=== PATIENT | female | born 1930 | race African-American/Black ===

== ENCOUNTER 2018-03-03 07:23 | Inpatient (IN) ==
[2018-03-03] MEDS ORDERED: Piperacillin/Tazobactam 3.375 GM in 0.9 % Sodium Chloride Mini Bag 100 ML IVPB ONE (07:34)
--- NOTE | 2018-03-03 07:34 | Emergency Department Note ---
Disposition Clinical Impression: Confusion, Elevated troponin, Lactic acidosis Leukocytosis Qualifiers: Leukocytosis type: unspecified Qualified Code(s): D72.829 - Elevated white blood cell count, unspecified UTI (urinary tract infection) Qualifiers: Urinary tract infection type: site unspecified Hematuria presence: with hematuria Qualified Code(s): N39.0 - Urinary tract infection, site not specified ; R31.9 - Hematuria, unspecified Sepsis Qualifiers: Sepsis type: sepsis due to unspecified organism Qualified Code(s): A41.9 - Sepsis, unspecified organism Disposition: Admitted As Inpatient Condition: Fair Time of Disposition: 12:04 General Adult HPI - General Stated complaint: low o2 Time Seen by Provider: 03/03/18 07:30 Nursing Notes Reviewed: Yes Vital Signs Reviewed: Yes - History of Present Illness HPI Narrative: 79-year-old female presents by EMS from [facility] for evaluation of hypoxia as well as suspected aspiration from her morning meds through her G- tube. Patient has severe Alzheimer's and is, at her baseline, minimally responsive to verbal command. Altered mentation described by her daughter as more somnolent than baseline. She does not use supplemental oxygen at baseline. Review of systems not obtainable secondary to patient's advanced dementia. Code status: DNR-CC. Documentation on file. - Related Data Home Medications Medication Instructions Recorded Confirmed Acetaminophen [Non-Aspirin] 650 mg PO Q6H PRN 03/03/18 03/03/18 Acetaminophen [Tylenol 650mg SUPP] 650 mg RC Q6H PRN 03/03/18 03/03/18 Albuterol Neb [Proventil Neb] 2.5 mg IH Q2H PRN 03/03/18 03/03/18 Aspirin Enteric Coated [Aspirin EC] 81 mg PO DAILY 03/03/18 03/03/18 Atropine 1% Opth Drops 1 drop SL Q4H 03/03/18 03/03/18 Donepezil HCl [Aricept] 10 mg PO DAILY 03/03/18 03/03/18 Ferrous Sulfate [Iron] 325 mg PO DAILY 03/03/18 03/03/18 Loratadine [Allergy Relief] 10 mg PO DAILY PRN 03/03/18 03/03/18 MORPHINE SUL Oral CONC [Roxanol 0.25 ml SL Q4H PRN 03/03/18 03/03/18 Oral Conc] Sennosides [Senna] 8.6 mg PO DAILY 03/03/18 03/03/18 Sucralfate [Carafate] 1 gm PO BID 03/03/18 03/03/18 Allergies Allergy/AdvReac Type Severity Reaction Status Date / Time No Known Allergies Allergy Verified 03/03/18 07:40 Limitations: ROS unobtainable due to patients medical condition Past Medical History - Past Medical History Medical history: Reports: non-contributory, dementia Surgical history: Reports: no surgical history Psychiatric history: Reports: anxiety, depression 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 Head: atraumatic, normocephalic Eye: normal appearance, PERRL, no scleral icterus, no conjunctival injection ENT: mucous membranes dry, normal external ear exam Neck: normal inspection, trachea midline, full ROM Chest: normal inspection, symmetric chest rise Respiratory: Poor respiratory effort. Bilateral breath sounds are diminished with coarse crackles. No wheeze or rhonchi. Cardiovascular: Regular rate and rhythm. No clicks, rubs, gallops, or murmors. Normal heart sounds. Abdomen: Bowel sounds present normoactive. Abdomen is soft, nondistended. Mild pain response to abdominal palpation. No guarding or rebound. No organomegaly noted. Musculoskeletal: Spontaneously moving all extremities. Skin: warm, dry, intact. Neuro: when awake, GCS 10 (E4, V1, M5) Psych: Patient's affect is appropriate for situation. Course Course Narrative: On bedside monitor the patient arrival, she is tachycardic, tachypneic though does not appear uncomfortable. She is requiring 2 L supple oxygen via nasal cannula. Lung sounds are coarse. Concern for sepsis from a pulmonary source. We will begin empiric antibiotics against healthcare associated pneumonia. Will provide IV fluids. Initially provided a 500mL IVF bolus, she was re- examined with no evidence of pulmonary edema. An additional 1L NS bolus provided. Patient's HR improved slightly. Her BP remained systolic greater than 120. Patient has profound lukocytosis to 40k. Lactic acidemia with lactate 5.0. Slight elevation in troponin of 0.05 with normal renal function; suspect demand ischemia. Patient given empiric vancomycin and zosyn. Urinalysis concerning for UTI. Thus sepsis from urinary source as well as suspected pulmonary source from suspected aspiration and diffuse crackles on exam. I discussed the above with the patient's daughter. She notes the patient has been in this scenario previously. Daughter is a nurse and readily understands the severity of the situation. Daughter prefers no invasive procedures, otherwise medically manage as much as possible. Daughter is open to palliative care. I discussed the above with the admitting hospitalist, Dr. Benedict who agrees to accept the patient for continued evaluation and management. EKG dated 03 March at 08:09 interpreted as sinus tachycardia with a rate of 140. GA 100 and short. Eloisa 2, QTC 369. Normal axis. ST depression in leads V3, V4, V5, V6 which are present on comparative EKG dated 07/25/2015. Chest X-Ray 03/03/18 07:37 IMPRESSION: No evidence for acute cardiopulmonary process. D/ / 03/03/2018 08:07:52 Edilberto Garcia MD / [facility] Interpreting Provider: Edilberto Garcia MD Abdomen/Pelvis CT 03/03/18 07:53 IMPRESSION: 1. Bilateral lower lobe bronchial wall thickening and mucous impaction compatible with bronchitis/atypical infection. 2. Diffuse bladder wall thickening which may in part be due to underdistention, however, superimposed cystitis is also possible. 3. Masses stool ball within the rectum. 4. Bilateral nephrolithiasis. 5. Cholelithiasis. D/ / 03/03/2018 10:02:05 Chiki Caballero MD / [facility] Interpreting Provider: Chiki Caballero MD Vital Signs Temperature 97.6 F 03/03/18 07:28 Pulse Rate 128 03/03/18 07:28 Respiratory Rate 26 03/03/18 07:28 Blood Pressure 160/85 03/03/18 07:28 O2 Sat by Pulse Oximetry 95 03/03/18 07:28 Temperature 99.4 F 03/03/18 15:42 Pulse Rate 120 03/03/18 13:51 Respiratory Rate 26 03/03/18 13:51 Blood Pressure 122/71 03/03/18 13:51 O2 Sat by Pulse Oximetry 97 03/03/18 11:37 Oxygen Delivery Oxygen Delivery Oximizer Medical Decision Making - Lab Data Result diagrams: 03/03/18 08:04 03/03/18 08:04 Lab Results 03/03/18 03/03/18 03/03/18 Range/Units 08:04 08:04 08:04 WBC 42.4 H* (4.3-11.1) K/mcL RBC 5.29 H (3.82-4.97) M/mcL Hgb 12.1 (11.5-15.4) g/dL Hct 39.0 (35.3-44.9) % MCV 73.7 L (83.0-100.0) fL MCH 22.9 L (28.0-33.3) pg MCHC 31.0 L (31.6-35.5) g/dL RDW 16.2 H (11.5-14.5) % Plt Count 361 (140-400) K/mcL MPV 10.0 (9.4-12.4) fL Immature Gran % Test Not Performed Seg Neutrophils % 89.0 % Band Neutrophils % 9.0 H (0-4) % Lymphocytes % 2.0 % Monocytes % Test Not Performed Eosinophils % Test Not Performed Basophils % Test Not Performed Neutrophils # 41.6 H (1.6-8.9) K/mcL Lymphocytes # 0.9 (0.6-4.6) K/mcL Monocytes # Test Not Performed Eosinophils # Test Not Performed Basophils # Test Not Performed Toxic Granulation Present A (Not Present) Toxic Vacuolation Present A (Not Present) Platelet Estimate Normal (Normal) PT 14.8 H (9.4-12.1) Seconds INR 1.3 APTT 33.8 (26.0-36.0) Seconds Sodium 146 H (136-145) mEq/L Potassium 4.1 (3.5-5.1) mEq/L Chloride 111 H (98-107) mEq/L Carbon Dioxide 23 (23-29) mEq/L BUN 15 (8-23) mg/dL Creatinine 0.89 (0.60-1.20) mg/dL Est GFR ( Amer) > 60 (> 60) Est GFR (Non-Af Amer) 60 (> 60) BUN/Creatinine Ratio 17 (6-26) Glucose 151 H (70-105) mg/dL Calculated Osmolality 306 H (280-300) Lactic Acid (0.5-2.2) mmol/L Calcium 10.0 (8.6-10.3) mg/dL Phosphorus 2.2 L (2.7-4.5) mg/dL Magnesium 2.0 (1.6-2.6) mg/dL Total Bilirubin 0.5 (0.3-1.0) mg/dL Direct Bilirubin 0.2 (0.0-0.2) mg/dL Indirect Bilirubin 0.3 (0.0-1.2) mg/dL AST 16 (13-39) Units/L ALT 9 (7-52) Units/L Alkaline Phosphatase 67 (34-104) Units/L Troponin I 0.05 H* (< 0.04) ng/mL Serum Total Protein 7.3 (6.4-8.9) g/dL Albumin 4.0 (3.5-5.7) g/dL Globulin 3.3 (2.4-3.5) g/dL Albumin/Globulin Ratio 1.2 (1.1-2.2) Urine Color (Yellow) Urine Clarity (Clear) Urine pH (5.0-8.0) pH Units Ur Specific [place] (1.010-1.025) Urine Protein (Neg-Trace) mg/dL Urine Glucose (UA) (Normal) mg/dL Urine Ketones (Negative) mg/dL Urine Blood (Negative) Urine Nitrite (Negative) Urine Bilirubin (Negative) Urine Urobilinogen (Normal) mg/dL Ur Leukocyte Esterase (Negative) Urine Microscopic RBC (0-3) per hpf Urine Microscopic WBC (0-3) per hpf Ur Squamous Epith Cells (None-Few) per lpf Urine Bacteria (None-Few) per hpf Hyaline Casts (None-Few) per lpf Ur Culture Indicated? (NO) 03/03/18 03/03/18 03/03/18 Range/Units 08:04 10:00 11:30 WBC (4.3-11.1) K/mcL RBC (3.82-4.97) M/mcL Hgb (11.5-15.4) g/dL Hct (35.3-44.9) % MCV (83.0-100.0) fL MCH (28.0-33.3) pg MCHC (31.6-35.5) g/dL RDW (11.5-14.5) % Plt Count (140-400) K/mcL MPV (9.4-12.4) fL Immature Gran % Seg Neutrophils % % Band Neutrophils % (0-4) % Lymphocytes % % Monocytes % Eosinophils % Basophils % Neutrophils # (1.6-8.9) K/mcL Lymphocytes # (0.6-4.6) K/mcL Monocytes # Eosinophils # Basophils # Toxic Granulation (Not Present) Toxic Vacuolation (Not Present) Platelet Estimate (Normal) PT (9.4-12.1) Seconds INR APTT (26.0-36.0) Seconds Sodium (136-145) mEq/L Potassium (3.5-5.1) mEq/L Chloride (98-107) mEq/L Carbon Dioxide (23-29) mEq/L BUN (8-23) mg/dL Creatinine (0.60-1.20) mg/dL Est GFR ( Amer) (> 60) Est GFR (Non-Af Amer) (> 60) BUN/Creatinine Ratio (6-26) Glucose (70-105) mg/dL Calculated Osmolality (280-300) Lactic Acid 5.0 H* 3.5 H (0.5-2.2) mmol/L Calcium (8.6-10.3) mg/dL Phosphorus (2.7-4.5) mg/dL Magnesium (1.6-2.6) mg/dL Total Bilirubin (0.3-1.0) mg/dL Direct Bilirubin (0.0-0.2) mg/dL Indirect Bilirubin (0.0-1.2) mg/dL AST (13-39) Units/L ALT (7-52) Units/L Alkaline Phosphatase (34-104) Units/L Troponin I (< 0.04) ng/mL Serum Total Protein (6.4-8.9) g/dL Albumin (3.5-5.7) g/dL Globulin (2.4-3.5) g/dL Albumin/Globulin Ratio (1.1-2.2) Urine Color Yellow (Yellow) Urine Clarity Turbid A (Clear) Urine pH 5.5 (5.0-8.0) pH Units Ur Specific [place] 1.015 (1.010-1.025) Urine Protein 100 H (Neg-Trace) mg/dL Urine Glucose (UA) Normal (Normal) mg/dL Urine Ketones Negative (Negative) mg/dL Urine Blood Large H (Negative) Urine Nitrite Positive A (Negative) Urine Bilirubin Negative (Negative) Urine Urobilinogen Normal (Normal) mg/dL Ur Leukocyte Esterase Large H (Negative) Urine Microscopic RBC TNTC H (0-3) per hpf Urine Microscopic WBC TNTC H (0-3) per hpf Ur Squamous Epith Cells Many H (None-Few) per lpf Urine Bacteria Moderate H (None-Few) per hpf Hyaline Casts None Seen (None-Few) per lpf Ur Culture Indicated? NO. A (NO)
--- NOTE | 2018-03-03 08:02 | Emergency Department Note ---
Disposition Clinical Impression: Confusion, Elevated troponin, Lactic acidosis, Sepsis Leukocytosis Qualifiers: Leukocytosis type: unspecified Qualified Code(s): D72.829 - Elevated white blood cell count, unspecified UTI (urinary tract infection) Qualifiers: Urinary tract infection type: site unspecified Hematuria presence: with hematuria Qualified Code(s): N39.0 - Urinary tract infection, site not specified Disposition: Admitted As Inpatient Condition: Fair General Adult HPI - General Chief complaint: ED Shortness of Breath/Dyspnea Stated complaint: low o2 Time Seen by Provider: 03/03/18 07:30 Source: EMS Limitations: altered mental status, other - History of Present Illness Pain Scale: 0 - Related Data Home Medications Medication Instructions Recorded Confirmed Acetaminophen [Non-Aspirin] 650 mg PO Q6H PRN 03/03/18 03/03/18 Acetaminophen [Tylenol 650mg SUPP] 650 mg RC Q6H PRN 03/03/18 03/03/18 Albuterol Neb [Proventil Neb] 2.5 mg IH Q2H PRN 03/03/18 03/03/18 Aspirin Enteric Coated [Aspirin EC] 81 mg PO DAILY 03/03/18 03/03/18 Atropine 1% Opth Drops 1 drop SL Q4H 03/03/18 03/03/18 Donepezil HCl [Aricept] 10 mg PO DAILY 03/03/18 03/03/18 Ferrous Sulfate [Iron] 325 mg PO DAILY 03/03/18 03/03/18 Loratadine [Allergy Relief] 10 mg PO DAILY PRN 03/03/18 03/03/18 MORPHINE SUL Oral CONC [Roxanol 0.25 ml SL Q4H PRN 03/03/18 03/03/18 Oral Conc] Sennosides [Senna] 8.6 mg PO DAILY 03/03/18 03/03/18 Sucralfate [Carafate] 1 gm PO BID 03/03/18 03/03/18 Allergies Allergy/AdvReac Type Severity Reaction Status Date / Time No Known Allergies Allergy Verified 03/03/18 07:40 Past Medical History - Past Medical History Medical history: Reports: non-contributory, dementia Surgical history: Reports: no surgical history Psychiatric history: Reports: anxiety, depression 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 - Social History Smoking Status: Unknown if ever smoked Smokeless Tobacco Status: No Alcohol use: Reports: none Drug use: Reports: none Physical Exam - General Limitations: altered mental status, other Course Vital Signs Temperature 97.6 F 03/03/18 07:28 Pulse Rate 128 03/03/18 07:28 Respiratory Rate 26 03/03/18 07:28 Blood Pressure 160/85 03/03/18 07:28 O2 Sat by Pulse Oximetry 95 03/03/18 07:28 Temperature 99.4 F 03/03/18 15:42 Pulse Rate 120 03/03/18 13:51 Respiratory Rate 26 03/03/18 13:51 Blood Pressure 122/71 03/03/18 13:51 O2 Sat by Pulse Oximetry 97 03/03/18 11:37 Oxygen Delivery Oxygen Delivery Oximizer Medical Decision Making - Lab Data Result diagrams: 03/03/18 08:04 03/03/18 08:04 Lab Results 03/03/18 03/03/18 03/03/18 Range/Units 08:04 08:04 08:04 WBC 42.4 H* (4.3-11.1) K/mcL RBC 5.29 H (3.82-4.97) M/mcL Hgb 12.1 (11.5-15.4) g/dL Hct 39.0 (35.3-44.9) % MCV 73.7 L (83.0-100.0) fL MCH 22.9 L (28.0-33.3) pg MCHC 31.0 L (31.6-35.5) g/dL RDW 16.2 H (11.5-14.5) % Plt Count 361 (140-400) K/mcL MPV 10.0 (9.4-12.4) fL Immature Gran % Test Not Performed Seg Neutrophils % 89.0 % Band Neutrophils % 9.0 H (0-4) % Lymphocytes % 2.0 % Monocytes % Test Not Performed Eosinophils % Test Not Performed Basophils % Test Not Performed Neutrophils # 41.6 H (1.6-8.9) K/mcL Lymphocytes # 0.9 (0.6-4.6) K/mcL Monocytes # Test Not Performed Eosinophils # Test Not Performed Basophils # Test Not Performed Toxic Granulation Present A (Not Present) Toxic Vacuolation Present A (Not Present) Platelet Estimate Normal (Normal) PT 14.8 H (9.4-12.1) Seconds INR 1.3 APTT 33.8 (26.0-36.0) Seconds Sodium 146 H (136-145) mEq/L Potassium 4.1 (3.5-5.1) mEq/L Chloride 111 H (98-107) mEq/L Carbon Dioxide 23 (23-29) mEq/L BUN 15 (8-23) mg/dL Creatinine 0.89 (0.60-1.20) mg/dL Est GFR ( Amer) > 60 (> 60) Est GFR (Non-Af Amer) 60 (> 60) BUN/Creatinine Ratio 17 (6-26) Glucose 151 H (70-105) mg/dL Calculated Osmolality 306 H (280-300) Lactic Acid (0.5-2.2) mmol/L Calcium 10.0 (8.6-10.3) mg/dL Phosphorus 2.2 L (2.7-4.5) mg/dL Magnesium 2.0 (1.6-2.6) mg/dL Total Bilirubin 0.5 (0.3-1.0) mg/dL Direct Bilirubin 0.2 (0.0-0.2) mg/dL Indirect Bilirubin 0.3 (0.0-1.2) mg/dL AST 16 (13-39) Units/L ALT 9 (7-52) Units/L Alkaline Phosphatase 67 (34-104) Units/L Troponin I 0.05 H* (< 0.04) ng/mL Serum Total Protein 7.3 (6.4-8.9) g/dL Albumin 4.0 (3.5-5.7) g/dL Globulin 3.3 (2.4-3.5) g/dL Albumin/Globulin Ratio 1.2 (1.1-2.2) Urine Color (Yellow) Urine Clarity (Clear) Urine pH (5.0-8.0) pH Units Ur Specific [place] (1.010-1.025) Urine Protein (Neg-Trace) mg/dL Urine Glucose (UA) (Normal) mg/dL Urine Ketones (Negative) mg/dL Urine Blood (Negative) Urine Nitrite (Negative) Urine Bilirubin (Negative) Urine Urobilinogen (Normal) mg/dL Ur Leukocyte Esterase (Negative) Urine Microscopic RBC (0-3) per hpf Urine Microscopic WBC (0-3) per hpf Ur Squamous Epith Cells (None-Few) per lpf Urine Bacteria (None-Few) per hpf Hyaline Casts (None-Few) per lpf Ur Culture Indicated? (NO) 03/03/18 03/03/18 03/03/18 Range/Units 08:04 10:00 11:30 WBC (4.3-11.1) K/mcL RBC (3.82-4.97) M/mcL Hgb (11.5-15.4) g/dL Hct (35.3-44.9) % MCV (83.0-100.0) fL MCH (28.0-33.3) pg MCHC (31.6-35.5) g/dL RDW (11.5-14.5) % Plt Count (140-400) K/mcL MPV (9.4-12.4) fL Immature Gran % Seg Neutrophils % % Band Neutrophils % (0-4) % Lymphocytes % % Monocytes % Eosinophils % Basophils % Neutrophils # (1.6-8.9) K/mcL Lymphocytes # (0.6-4.6) K/mcL Monocytes # Eosinophils # Basophils # Toxic Granulation (Not Present) Toxic Vacuolation (Not Present) Platelet Estimate (Normal) PT (9.4-12.1) Seconds INR APTT (26.0-36.0) Seconds Sodium (136-145) mEq/L Potassium (3.5-5.1) mEq/L Chloride (98-107) mEq/L Carbon Dioxide (23-29) mEq/L BUN (8-23) mg/dL Creatinine (0.60-1.20) mg/dL Est GFR ( Amer) (> 60) Est GFR (Non-Af Amer) (> 60) BUN/Creatinine Ratio (6-26) Glucose (70-105) mg/dL Calculated Osmolality (280-300) Lactic Acid 5.0 H* 3.5 H (0.5-2.2) mmol/L Calcium (8.6-10.3) mg/dL Phosphorus (2.7-4.5) mg/dL Magnesium (1.6-2.6) mg/dL Total Bilirubin (0.3-1.0) mg/dL Direct Bilirubin (0.0-0.2) mg/dL Indirect Bilirubin (0.0-1.2) mg/dL AST (13-39) Units/L ALT (7-52) Units/L Alkaline Phosphatase (34-104) Units/L Troponin I (< 0.04) ng/mL Serum Total Protein (6.4-8.9) g/dL Albumin (3.5-5.7) g/dL Globulin (2.4-3.5) g/dL Albumin/Globulin Ratio (1.1-2.2) Urine Color Yellow (Yellow) Urine Clarity Turbid A (Clear) Urine pH 5.5 (5.0-8.0) pH Units Ur Specific [place] 1.015 (1.010-1.025) Urine Protein 100 H (Neg-Trace) mg/dL Urine Glucose (UA) Normal (Normal) mg/dL Urine Ketones Negative (Negative) mg/dL Urine Blood Large H (Negative) Urine Nitrite Positive A (Negative) Urine Bilirubin Negative (Negative) Urine Urobilinogen Normal (Normal) mg/dL Ur Leukocyte Esterase Large H (Negative) Urine Microscopic RBC TNTC H (0-3) per hpf Urine Microscopic WBC TNTC H (0-3) per hpf Ur Squamous Epith Cells Many H (None-Few) per lpf Urine Bacteria Moderate H (None-Few) per hpf Hyaline Casts None Seen (None-Few) per lpf Ur Culture Indicated? NO. A (NO) Attestation Statement - Attestation Attestation: I examined this patient and my medical decision-making was reviewed with the FRONT END SPECIALIST/PA/Advanced Practice Nurse/Resident Physician. I agree with the documented findings, disposition and treatment plan as described except to the extent set forth below. Patient presents per EMS with hypoxemia and a saturation in the 70s. She did have emesis while she is here and we did suction her and her G-tube will be hooked up to suction. Likely aspiration pneumonitis, her chest x-ray is clear without evidence of infiltrate. Patient is DNRCC but no family is here. Diagnostic tests will be done and these results are pending. Oxygen saturation in the 90s on nasal cannula oxygen. 0801 I did review the EKG showing sinus tachycardia with a rate of 140 bpm without ischemic change, I did review her labs including elevated lactate and white blood cell count. Patient is already being treated for sepsis, blood cultures, will receive IV fluids. [id number]
[2018-03-03 08:18] LABS: Hemoglobin 12.1 g/dL (11.5-15.4); Mean Corpuscular Hemoglobin 22.9 pg (28.0-33.3); Mean Corpuscular Volume 73.7 fL (83.0-100.0); Platelet Count 361 K/mcL (140-400); Red Blood Count 5.29 M/mcL (3.82-4.97); Red Cell Distribution Width 16.2 % (11.5-14.5)
[2018-03-03 08:26] LABS: INR 1.3; Prothrombin Time 14.8 Seconds (9.4-12.1)
[2018-03-03 08:29] LABS: Activated Partial Thrombo Time 33.8 Seconds (26.0-36.0)
[2018-03-03 08:39] LABS: Alanine Aminotransferase 9 Units/L (7-52); Albumin/Globulin Ratio 1.2 (1.1-2.2); Alkaline Phosphatase 67 Units/L (34-104); Aspartate Amino Transferase 16 Units/L (13-39); BUN/Creatinine Ratio 17 (6-26); Bilirubin,Direct 0.2 mg/dL (0.0-0.2); Bilirubin,Indirect 0.3 mg/dL (0.0-1.2); Bilirubin,Total 0.5 mg/dL (0.3-1.0); Blood Urea Nitrogen 15 mg/dL (8-23); Carbon Dioxide 23 mEq/L (23-29); Chloride 111 mEq/L (98-107); Globulin 3.3 g/dL (2.4-3.5); Glucose 151 mg/dL (70-105); Osmolality,Calculated 306 (280-300); Phosphorous 2.2 mg/dL (2.7-4.5); Potassium 4.1 mEq/L (3.5-5.1); Sodium 146 mEq/L (136-145); Total Protein 7.3 g/dL (6.4-8.9); eGFR For African Americans > 60 (> 60); eGFR For Non-African Americans 60 (> 60)
[2018-03-03 08:42] LABS: Troponin I 0.05 ng/mL (< 0.04)
[2018-03-03] MEDS: 0.9 % Sodium Chloride 1,000 ML IVC SCH ×4 (08:48→13:40)
[2018-03-03] MEDS ORDERED: 0.9 % Sodium Chloride 500 ML IVC ONE ×2 (08:58→15:17)
[2018-03-03 09:22] LABS: Lymphocytes # 0.9 K/mcL (0.6-4.6); Neutrophils # 41.6 K/mcL (1.6-8.9); Platelet Estimate Normal (Normal); Toxic Granulation Present (Not Present); Toxic Vacuolation Present (Not Present)
[2018-03-03 10:10] LABS: Bilirubin,Urine Negative (Negative); Blood,Urine Large (Negative); Clarity,Urine Turbid (Clear); Color,Urine Yellow (Yellow); Glucose,Urine (UA) Normal (Normal); Ketones,Urine Negative (Negative); Leukocyte Esterase,Urine Large (Negative); Nitrite,Urine Positive (Negative); PH,Urine 5.5 pH Units (5.0-8.0); Protein,Urine 100 mg/dL (Neg-Trace); Specific Gravity,Urine 1.015 (1.010-1.025); Urobilinogen,Urine Normal (Normal)
[2018-03-03 10:11] LABS: Bacteria,Urine Moderate per hpf (None-Few); Hyaline Casts,Urine None Seen per lpf (None-Few); RBC,Urine TNTC per hpf (0-3); Squamous Epithelial Cell,Urine Many per lpf (None-Few); WBC,Urine TNTC per hpf (0-3)
--- NOTE | 2018-03-03 11:33 | Internal Med History&Physical ---
Date of Encounter: 03/03/18 Time of Encounter: 11:28 Internal Medicine - H&P: HPI Chief complaint: Hypoxia Admitted From: Emergency Dept Plans for Post Hospital Care: Home History of present illness: Ms. Mccain is a 87 year old female who has a history of severe end-stage dementia who presents from her nursing facility due to low O2 sats. The patient at baseline is incoherent and makes very little statements make sense at baseline. Her daughter is a nurse and is her DPOA and is at bedside. She is a former ICU nurse and adamantly says that she does not want to enroll her mother into hospice and is not interested in having palliative see the patient. Today at the nursing facility she was found to have oxygen saturation in the 70s. She was more incoherent and was minimally responsive. She was mostly somnolent but moved her extremities spontaneously. She reportedly had some vomiting as they administered her morning meds through her G-tube. She was brought to the ED where she was found to have leukocytosis and lactic acidosis. She was also tachycardic but afebrile. Workup has revealed a UTI as well as finding of possible aspiration pneumonia. I spoke to her daughter extensively who would like her admitted and treated with antibiotics and IV fluids however she is not to receive any CPR or be intubated if needed. She is also not to receive any pressors or have a central line placed if she deteriorates. In the ED she was given IV fluids as well as vancomycin and Zosyn. The daughter tells her that she had a G-tube placed a few years ago for hydration purposes. Her mother still is able to take by mouth diet as well medications usually. Past Med Surg Social Fam HX - Past Medical History Medical history: non-contributory, dementia Additional medical history: hypernatremia, AMS, Psychiatric history: anxiety, depression - Past Surgical History Surgical History: no surgical history Additional surgical history: Tubal ligation. AAA repair. Femoral Graft left. Peg Tube - Social History Smoking Status: Unknown if ever smoked Smokeless Tobacco Status: No Alcohol use: none Drug use: none Internal Medicine - H&P: Meds Acetaminophen [Non-Aspirin] 650 mg PO Q6H PRN 03/03/18 [History] Acetaminophen [Tylenol 650mg SUPP] 650 mg RC Q6H PRN 03/03/18 [History] Albuterol Neb [Proventil Neb] 2.5 mg IH Q2H PRN 03/03/18 [History] Aspirin Enteric Coated [Aspirin EC] 81 mg PO DAILY 03/03/18 [History] Atropine 1% Opth Drops 1 drop SL Q4H 03/03/18 [History] Donepezil HCl [Aricept] 10 mg PO DAILY 03/03/18 [History] Ferrous Sulfate [Iron] 325 mg PO DAILY 03/03/18 [History] Loratadine [Allergy Relief] 10 mg PO DAILY PRN 03/03/18 [History] MORPHINE SUL Oral CONC [Roxanol Oral Conc] 0.25 ml SL Q4H PRN 03/03/18 [History] Sennosides [Senna] 8.6 mg PO DAILY 03/03/18 [History] Sucralfate [Carafate] 1 gm PO BID 03/03/18 [History] 3 Allergy/AdvReac Type Severity Reaction Status Date / Time No Known Allergies Allergy Verified 03/03/18 07:40 ROS unobtainable: due to mental status All Systems PM: A 10-system review of systems was performed and is negative for pertinent findings except as documented above in the HPI. - Constitutional Vitals: Temp Pulse Resp BP Pulse Ox 97.5 F L 132 22 169/110 98 03/03/18 10:55 03/03/18 10:55 03/03/18 10:55 03/03/18 10:55 03/03/18 10:55 Exam: GEN: NAD, somnolent HEENT: AT, NC, No cyanosis, oral mucosa is moist, No JVD Lymphatics: No lymphadenoapthy Eyes: Extrocular muscles intact, anicteric CVS: Tachycardic. S1, S2, No m/r/g RESP: Coarse breath sounds at the bases ABD: Soft, NT, ND, +BS EXT: No edema, No rashes, 2+ DP NEURO: Nonfocal, CN II-XII intact, No focal motor or sensory deficits Internal Med - H&P Results - Labs CBC & Chem 7: 03/03/18 08:04 03/03/18 08:04 Labs: Short CBC 03/03/18 Range/Units 08:04 WBC 42.4 H* (4.3-11.1) K/mcL Hgb 12.1 (11.5-15.4) g/dL Hct 39.0 (35.3-44.9) % Plt Count 361 (140-400) K/mcL Neutrophils # 41.6 H (1.6-8.9) K/mcL BMP 03/03/18 08:04 Sodium 146 H Potassium 4.1 Chloride 111 H Carbon Dioxide 23 BUN 15 Creatinine 0.89 Glucose 151 H Calcium 10.0 Cardiac Enzymes 03/03/18 Range/Units 08:04 Troponin I 0.05 H* (< 0.04) ng/mL Liver Function 03/03/18 Range/Units 08:04 Total Bilirubin 0.5 (0.3-1.0) mg/dL Direct Bilirubin 0.2 (0.0-0.2) mg/dL AST 16 (13-39) Units/L ALT 9 (7-52) Units/L Alkaline Phosphatase 67 (34-104) Units/L Albumin 4.0 (3.5-5.7) g/dL Urine 03/03/18 Range/Units 10:00 Urine Color Yellow (Yellow) Urine Clarity Turbid A (Clear) Urine pH 5.5 (5.0-8.0) pH Units Ur Specific [place] 1.015 (1.010-1.025) Urine Protein 100 H (Neg-Trace) mg/dL Urine Glucose (UA) Normal (Normal) mg/dL - Impressions ITS Impressions Chest X-Ray 03/03/18 07:37 IMPRESSION: No evidence for acute cardiopulmonary process. D/ / 03/03/2018 08:07:52 Edilberto Garcia MD / [facility] Interpreting Provider: Edilberto Garcia MD Abdomen/Pelvis CT 03/03/18 07:53 IMPRESSION: 1. Bilateral lower lobe bronchial wall thickening and mucous impaction compatible with bronchitis/atypical infection. 2. Diffuse bladder wall thickening which may in part be due to underdistention, however, superimposed cystitis is also possible. 3. Masses stool ball within the rectum. 4. Bilateral nephrolithiasis. 5. Cholelithiasis. D/ / 03/03/2018 10:02:05 Chiki Caballero MD / [facility] Interpreting Provider: Chiki Caballero MD - Assessment and plan (1) Counseling regarding advanced care planning and goals of care Current Visit: No Status: Acute Assessment and plan: Had an extensive talk with her daughter Siria who again confirms DNR CCA status. She is not interested in having palliative see the patient. If it gets to the point of the patient deteriorating needed pressors or central line she is not interested in having that done. She is okay with antibiotics and IV fluids for now. (2) Severe sepsis Current Visit: Yes Status: Acute Assessment and plan: Will admit the patient and treat her underlying causes as below. Repeat lactic acid after some hydration. (3) UTI (urinary tract infection) Current Visit: Yes Status: Acute Assessment and plan: Zosyn should cover. We will follow up on cultures. Continue IV fluids. Qualifiers: Urinary tract infection type: site unspecified Hematuria presence: without hematuria Qualified Code(s): N39.0 - Urinary tract infection, site not specified (4) HCAP (healthcare-associated pneumonia) Current Visit: Yes Status: Acute Assessment and plan: We will treat as HCAP possible aspiration pneumonia. Vancomycin and Zosyn started. IV fluids. O2 support. Nebs. Follow up on blood cultures. Check urine strep and Legionella. (5) Elevated troponin Current Visit: Yes Status: Acute Assessment and plan: Likely secondary to sepsis. Given DNR CCA status there is no point in trending this. (6) Dementia Current Visit: No Status: Chronic Assessment and plan: Supportive care Qualifiers: Dementia type: unspecified type Dementia behavioral disturbance: without behavioral disturbance Qualified Code(s): F03.90 - Unspecified dementia without behavioral disturbance (7) DVT prophylaxis Current Visit: No Status: Acute Assessment and plan: Heparin subcutaneous - Time Spent With Patient Total time spent is greater than 50% in coordination of care (as documented) at patient's floor/unit and/or counseling patient:
[2018-03-03] MEDS ORDERED: Ondansetron 4 MG/2 ML VIAL IVP PRN (11:37)
[2018-03-03] MEDS ORDERED: Acetaminophen 325 MG TABLET PO PRN (11:38)
[2018-03-03] MEDS ORDERED: Naloxone 0.4 MG/ML INJ IVP PRN (11:38)
[2018-03-03] MEDS ORDERED: Vancomycin 1 EACH in 0.9 % Sodium Chloride 250 ML IVPB PRN (12:00)
[2018-03-03] MEDS ORDERED: 0.9 % Sodium Chloride 1,000 ML IVC ONE (12:20)
[2018-03-03] MEDS: Atropine 1% Opth Drops 100 DROP/5 ML BOTTLE SL SCH ×3 (13:40→19:36)
[2018-03-03] MEDS: *HR* Heparin 5,000 UNIT/ML VIAL SQ SCH (14:18)
[2018-03-03] MEDS: Ipratropium/Albuterol Neb 3 ML IH SCH ×2 (15:57→22:11)
[2018-03-03] MEDS: Piperacillin/Tazobactam 3.375 GM in 0.9 % Sodium Chloride Mini Bag 100 ML IVPB SCH (16:06)
[2018-03-03] MEDS: Sucralfate 1 GM TABLET PO SCH (18:18)
[2018-03-03 21:50] LABS: Acinetobacter baumannii by PCR Not Detected (Not Detect); Candida albicans by PCR Not Detected (Not Detect); Enterococcus by PCR Not Detected (Not Detect); Escherichia coli by PCR ***DETECTED*** (Not Detect); Klebsiella oxytoca by PCR Not Detected (Not Detect); Klebsiella pneumoniae by PCR Not Detected (Not Detect); Pseudomonas aeruginosa by PCR Not Detected (Not Detect); Serratia marcescens by PCR Not Detected (Not Detect); Staphylococcus aureus by PCR Not Detected (Not Detect); Streptococcus agalactiae(B)PCR Not Detected (Not Detect); Streptococcus by PCR Not Detected (Not Detect); Streptococcus pneumoniae PCR Not Detected (Not Detect); Streptococcus pyogenes (A) PCR Not Detected (Not Detect); blaKPC Carbapenem-Resist Gene Not Detected (Not Detect); mecA Methicillin-Resist Gene Not Detected (Not Detect); vanA/B Vancomycin-Resist Genes Not Detected (Not Detect)
[2018-03-03 21:51] LABS: Candida glabrata by PCR Not Detected (Not Detect); Candida krusei by PCR Not Detected (Not Detect); Candida parapsilosis by PCR Not Detected (Not Detect); Candida tropicalis by PCR Not Detected (Not Detect)
--- NOTE | 2018-03-03 21:55 | Event Note ---
Date of Encounter: 03/03/18 Time of Encounter: 21:53 Blood culture returned + for gram negative rods, E-coli. Awaiting sensitivity. The patient is currently on vancomycin and zosyn.
[2018-03-04] MEDS: *HR* Heparin 5,000 UNIT/ML VIAL SQ SCH ×4 (00:35→22:37)
[2018-03-04] MEDS: Atropine 1% Opth Drops 100 DROP/5 ML BOTTLE SL SCH ×7 (00:36→22:50)
[2018-03-04] MEDS: Piperacillin/Tazobactam 3.375 GM in 0.9 % Sodium Chloride Mini Bag 100 ML IVPB SCH ×3 (00:36→17:07)
[2018-03-04 00:44] LABS: Hematocrit 29.1 % (35.3-44.9); Mean Corpuscular HGB Conc 30.9 g/dL (31.6-35.5); Mean Corpuscular Volume 74.4 fL (83.0-100.0); Mean Platelet Volume 11.2 fL (9.4-12.4); Platelet Count 266 K/mcL (140-400); Red Blood Count 3.91 M/mcL (3.82-4.97); Red Cell Distribution Width 16.5 % (11.5-14.5)
[2018-03-04 00:49] LABS: BUN/Creatinine Ratio 17 (6-26); Blood Urea Nitrogen 14 mg/dL (8-23); Calcium 7.6 mg/dL (8.6-10.3); Carbon Dioxide 16 mEq/L (23-29); Chloride 122 mEq/L (98-107); Glucose 126 mg/dL (70-105); Magnesium 1.7 mg/dL (1.6-2.6); Osmolality,Calculated 308 (280-300); Potassium 3.3 mEq/L (3.5-5.1); Sodium 148 mEq/L (136-145); eGFR For African Americans > 60 (> 60); eGFR For Non-African Americans > 60 (> 60)
[2018-03-04 01:14] LABS: Lymphocytes # 1.8 K/mcL (0.6-4.6); Monocytes # 1.8 K/mcL (0.0-1.3); Neutrophils # 41.2 K/mcL (1.6-8.9)
[2018-03-04 01:15] LABS: Platelet Estimate Normal (Normal)
[2018-03-04] MEDS: Ipratropium/Albuterol Neb 3 ML IH SCH ×4 (03:10→22:24)
[2018-03-04] MEDS: 0.9 % Sodium Chloride 1,000 ML IVC SCH (04:05)
[2018-03-04] MEDS ORDERED: Potassium Chloride Elixir 20 MEQ/15 ML UDC PO ONE (08:02)
[2018-03-04] MEDS ORDERED: Aspirin Enteric Coated 81 MG Tablet PO SCH (09:00)
[2018-03-04] MEDS: Sucralfate 1 GM TABLET PO SCH ×2 (09:07→22:37)
[2018-03-04] MEDS: Sennosides 8.6 MG TABLET PO SCH (09:07)
[2018-03-04] MEDS: Aspirin 81 MG TAB.CHEW PO SCH (12:21)
--- NOTE | 2018-03-04 15:00 | Internal Med Progress Note ---
Date of Encounter: 03/04/18 Time of Encounter: 09:40 - Assessment and plan (1) UTI (urinary tract infection) Current Visit: Yes Status: Acute Assessment and plan: UA shows large blood, nitrite positive. large verónica esterase, TNTC RBC and WBC, moderate bacteria; f/up urine culture; continue broad spectrum antibiotics as below; Qualifiers: Urinary tract infection type: site unspecified Hematuria presence: with hematuria Qualified Code(s): N39.0 - Urinary tract infection, site not specified; R31.9 - Hematuria, unspecified (2) Severe sepsis Current Visit: Yes Status: Acute Assessment and plan: Presented with significant leukocytosis with bandemia, tachycardia, resp failure and lactic acidosis, likely due to Pneumonia and UTI; continue IV hydration and antibiotics; f/up cultures; worsening leukocytosis but improved bandemia; lactic acid improving; (3) Dementia Current Visit: Yes Status: Chronic Assessment and plan: bedbound, residential ECF resident; supportive care, fall precautions; Qualifiers: Dementia type: unspecified type Dementia behavioral disturbance: without behavioral disturbance Qualified Code(s): F03.90 - Unspecified dementia without behavioral disturbance (4) DVT prophylaxis Current Visit: Yes Status: Acute (5) HCAP (healthcare-associated pneumonia) Current Visit: Yes Status: Acute Assessment and plan: We will treat as HCAP and possible aspiration pneumonia. On Vancomycin and Zosyn. IV fluids. O2 support. Nebs. Follow up on blood cultures. Urine strep and Legionella Ag negative. Will check nasal MRSA screen; (6) Elevated troponin Current Visit: Yes Status: Acute Assessment and plan: likely demand ischemia due to PNA and sepsis; (7) Acute respiratory failure Current Visit: Yes Status: Acute Assessment and plan: due to Pneumonia and possible aspiration; continue antibiotics and O2; Qualifiers: Respiratory failure complication: hypoxia Qualified Code(s): J96.01 - Acute respiratory failure with hypoxia (8) Bacteremia Current Visit: Yes Status: Acute Assessment and plan: 1/2 blood cultures grow GNR, serology positive for Enterobacteriacae/E.coli; continue IV Zosyn; repeat blood cultures in 48hrs; (9) Hypernatremia Current Visit: Yes Status: Acute Assessment and plan: per daughter, patient has frequent issues with serum sodium; at risk for worsening hypernatremia due to dehydration; explained this to daughter and encouraged oral hydration; will start hypotonic fluids, free water via PEG tube; Labor And Delivery Registered Nurse consult for tube feeding; - Time Spent With Patient Total time spent is greater than 50% in coordination of care (as documented) at patient's floor/unit and/or counseling patient: - Subjective Interval history: Unable to provide history or follow commands due to dementia; mostly nonverbal except grunting and moaning; uncooperative to exam, becomes rigid and fights exam; history obtained from her daughter at bedside; - Constitutional Vitals: Temp Pulse Resp BP Pulse Ox 98.4 F 108 22 125/75 95 03/04/18 12:45 03/04/18 12:45 03/04/18 14:45 03/04/18 12:45 03/04/18 14:45 General appearance: Present: cachectic, A&O X 0. Absent: answers questions appropriately Exam: dry mucous membranes and skin - Respiratory Respiratory exam: Present: CTAB (coarse breath sounds B/L). Absent: accessory muscle use, rales, rhonchi, wheezes - Cardiovascular Cardiovascular exam: Present: RRR, +S1, +S2. Absent: diastolic murmur, gallop, rubs, systolic murmur - GI/Abdominal GI/Abdominal exam: Present: normal bowel sounds, soft (PEG tube in place), no peritoneal signs. Absent: distended, tenderness - Extremities Exam Extremities exam: Present: warm, radial pulses palpable and symmetrical. Absent : calf tenderness, cyanotic, pedal edema - Neurological Exam Neurological exam: Present: no focal deficits. Absent: pronater drift, facial droop, speech deficit Internal Medicine: Result - Labs CBC & Chem 7: 03/04/18 00:15 03/04/18 00:15 Labs: Short CBC 03/04/18 Range/Units 00:15 WBC 44.8 H* (4.3-11.1) K/mcL Hgb 9.0 L D (11.5-15.4) g/dL Hct 29.1 L (35.3-44.9) % Plt Count 266 (140-400) K/mcL Neutrophils # 41.2 H (1.6-8.9) K/mcL BMP 03/04/18 00:15 Sodium 148 H Potassium 3.3 L Chloride 122 H Carbon Dioxide 16 L BUN 14 Creatinine 0.84 Glucose 126 H Calcium 7.6 L - ABG Interpretation ABG results: PT/INR, D-dimer PT 14.8 Seconds (9.4-12.1) H 03/03/18 08:04 Consult Discharge Plan - Plan
[2018-03-05] MEDS: Piperacillin/Tazobactam 3.375 GM in 0.9 % Sodium Chloride Mini Bag 100 ML IVPB SCH ×4 (00:22→23:31)
[2018-03-05] MEDS: Atropine 1% Opth Drops 100 DROP/5 ML BOTTLE SL SCH ×6 (04:12→23:29)
[2018-03-05] MEDS: Ipratropium/Albuterol Neb 3 ML IH SCH ×4 (04:45→22:54)
[2018-03-05] MEDS: *HR* Heparin 5,000 UNIT/ML VIAL SQ SCH ×3 (05:40→22:24)
[2018-03-05 07:47] LABS: Hematocrit 25.7 % (35.3-44.9); Hemoglobin 8.1 g/dL (11.5-15.4); Mean Corpuscular HGB Conc 31.5 g/dL (31.6-35.5); Mean Corpuscular Hemoglobin 22.4 pg (28.0-33.3); Mean Platelet Volume 11.8 fL (9.4-12.4); Platelet Count 237 K/mcL (140-400); Red Blood Count 3.62 M/mcL (3.82-4.97); Red Cell Distribution Width 16.6 % (11.5-14.5)
[2018-03-05] MEDS ORDERED: Aminoglycoside Consult 1 EACH MC ONE (07:57)
[2018-03-05 08:09] LABS: BUN/Creatinine Ratio 16 (6-26); Blood Urea Nitrogen 12 mg/dL (8-23); Calcium 7.9 mg/dL (8.6-10.3); Carbon Dioxide 20 mEq/L (23-29); Chloride 119 mEq/L (98-107); Glucose 127 mg/dL (70-105); Neutrophils # 21.9 K/mcL (1.6-8.9); Osmolality,Calculated 297 (280-300); Platelet Estimate Normal (Normal); Potassium 3.1 mEq/L (3.5-5.1); Sodium 143 mEq/L (136-145); eGFR For African Americans > 60 (> 60); eGFR For Non-African Americans > 60 (> 60)
[2018-03-05] MEDS: Aspirin 81 MG TAB.CHEW PO SCH (08:10)
[2018-03-05] MEDS: Sennosides 8.6 MG TABLET PO SCH (08:10)
[2018-03-05] MEDS: Potassium Chloride Elixir 20 MEQ/15 ML UDC GTUBE SCH ×2 (09:30→13:19)
--- NOTE | 2018-03-05 14:58 | Internal Med Progress Note ---
Date of Encounter: 03/05/18 Time of Encounter: 09:00 - Assessment and plan (1) UTI (urinary tract infection) Current Visit: Yes Status: Acute Assessment and plan: UA shows large blood, nitrite positive, large verónica esterase, TNTC RBC and WBC, moderate bacteria; Preliminary urine culture grows E.coli, pending sensitivity; continue broad spectrum antibiotics as below; Qualifiers: Urinary tract infection type: site unspecified Hematuria presence: with hematuria Qualified Code(s): N39.0 - Urinary tract infection, site not specified; R31.9 - Hematuria, unspecified (2) Severe sepsis Current Visit: Yes Status: Acute Assessment and plan: Presented with significant leukocytosis with bandemia, tachycardia, resp failure and lactic acidosis, likely due to Pneumonia and UTI; continue IV hydration and antibiotics; f/up cultures; improved sepsis at this time; (3) Dementia Current Visit: Yes Status: Chronic Assessment and plan: bedbound, half-way ECF resident; supportive care, fall precautions; Qualifiers: Dementia type: unspecified type Dementia behavioral disturbance: without behavioral disturbance Qualified Code(s): F03.90 - Unspecified dementia without behavioral disturbance (4) DVT prophylaxis Current Visit: Yes Status: Acute (5) HCAP (healthcare-associated pneumonia) Current Visit: Yes Status: Acute Assessment and plan: HCAP and possible aspiration pneumonia. Continue Zosyn and hold vancomycin. IV fluids. O2 support. Nebs. blood cultures negative. Urine strep and Legionella Ag negative. (6) Elevated troponin Current Visit: Yes Status: Resolved (7) Acute respiratory failure Current Visit: Yes Status: Acute Assessment and plan: due to Pneumonia and possible aspiration; continue antibiotics and O2; Qualifiers: Respiratory failure complication: hypoxia Qualified Code(s): J96.01 - Acute respiratory failure with hypoxia (8) Bacteremia Current Visit: Yes Status: Acute Assessment and plan: 1/2 blood cultures grow E.coli, serology positive for Enterobacteriacae/E.coli; continue IV Zosyn; repeat blood cultures in 48hrs; (9) Hypernatremia Current Visit: Yes Status: Acute Assessment and plan: per daughter, patient has frequent issues with serum sodium; at risk for worsening hypernatremia due to dehydration; continue hypotonic fluids, free water via PEG tube; Cement Finisher Apprentice consult for tube feeding appreciated; (10) Protein-calorie malnutrition, severe Current Visit: Yes Status: Chronic Assessment and plan: Ongoing for the last 3 years; Mechanics Handyman consulted; - Time Spent With Patient Total time spent is greater than 50% in coordination of care (as documented) at patient's floor/unit and/or counseling patient: - Subjective Interval history: Unable to provide history or follow commands due to dementia; mostly nonverbal except grunting and moaning; fast asleep; no family at bedside; - Constitutional Vitals: Temp Pulse Resp BP Pulse Ox 98.2 F 98 18 124/94 96 03/05/18 11:20 03/05/18 11:51 03/05/18 11:20 03/05/18 11:20 03/05/18 11:20 General appearance: Present: cachectic, A&O X 0. Absent: answers questions appropriately - Respiratory Respiratory exam: Present: CTAB. Absent: accessory muscle use, rales, rhonchi, wheezes - Cardiovascular Cardiovascular exam: Present: RRR, +S1, +S2. Absent: diastolic murmur, gallop, rubs, systolic murmur - GI/Abdominal GI/Abdominal exam: Present: normal bowel sounds, soft (PEG tube in place), no peritoneal signs. Absent: distended, tenderness - Extremities Exam Extremities exam: Present: warm, radial pulses palpable and symmetrical. Absent : calf tenderness, cyanotic, pedal edema - Neurological Exam Neurological exam: Present: altered, no focal deficits. Absent: pronater drift , facial droop, speech deficit Internal Medicine: Result - Labs CBC & Chem 7: 03/05/18 07:30 03/05/18 07:30 Labs: Short CBC 03/05/18 Range/Units 07:30 WBC 24.9 H (4.3-11.1) K/mcL Hgb 8.1 L (11.5-15.4) g/dL Hct 25.7 L (35.3-44.9) % Plt Count 237 (140-400) K/mcL Neutrophils # 21.9 H (1.6-8.9) K/mcL BMP 03/05/18 07:30 Sodium 143 Potassium 3.1 L Chloride 119 H Carbon Dioxide 20 L BUN 12 Creatinine 0.74 Glucose 127 H Calcium 7.9 L - ABG Interpretation ABG results: PT/INR, D-dimer PT 14.8 Seconds (9.4-12.1) H 03/03/18 08:04 Consult Discharge Plan - Plan Referrals: Wade Metcalf MD [Primary Care Provider] -
[2018-03-06] MEDS: Atropine 1% Opth Drops 100 DROP/5 ML BOTTLE SL SCH ×6 (03:54→23:07)
[2018-03-06] MEDS: Ipratropium/Albuterol Neb 3 ML IH SCH ×2 (04:29→10:58)
[2018-03-06] MEDS: *HR* Heparin 5,000 UNIT/ML VIAL SQ SCH ×3 (06:04→22:33)
[2018-03-06 06:44] LABS: Basophils # 0.1 K/mcL (0.0-0.2); Basophils % 0.3 %; Eosinophils # 0.7 K/mcL (0.0-0.6); Hematocrit 30.4 % (35.3-44.9); Immature Granulocytes % 0.7 % (0-4); Lymphocytes # 1.5 K/mcL (0.6-4.6); Lymphocytes % 8.6 %; Mean Corpuscular HGB Conc 32.6 g/dL (31.6-35.5); Mean Corpuscular Volume 70.7 fL (83.0-100.0); Mean Platelet Volume 11.4 fL (9.4-12.4); Monocytes # 0.9 K/mcL (0.0-1.3); Neutrophils # 14.4 K/mcL (1.6-8.9); Platelet Count 238 K/mcL (140-400); Red Cell Distribution Width 16.6 % (11.5-14.5); Segmented Neutrophils % 81.4 %
[2018-03-06 06:49] LABS: Hemoglobin 9.9 g/dL (11.5-15.4)
--- NOTE | 2018-03-06 06:49 | Electrocardiograph Report ---
[employer] Test Date: 2018-03-03 Pat Name: Vielka Mccain Department: 104 Room: 2N15 Gender: F Nuclear Weapons Specialist: : [id number] Requested By: Charlie Dorsey Order Number: [id number] Reading MD: Abner Mckeon Measurements Intervals [place] Rate: 140 P: 83 IN: 100 QRS: 65 QRSD: 82 T: 43 QT: 288 QTc: 369 Interpretive Statements SINUS TACHYCARDIA WITH SHORT IN INTERVAL, POSSIBLE ATRIAL FLUTTER MODERATE ST DEPRESSION Electronically Signed On 03-06-2018 6:47:46 EDT by Abner Mckeon
[2018-03-06 06:53] LABS: BUN/Creatinine Ratio 12 (6-26); Blood Urea Nitrogen 8 mg/dL (8-23); Calcium 8.7 mg/dL (8.6-10.3); Carbon Dioxide 19 mEq/L (23-29); Chloride 120 mEq/L (98-107); Glucose 121 mg/dL (70-105); Magnesium 1.9 mg/dL (1.6-2.6); Osmolality,Calculated 298 (280-300); Potassium 4.3 mEq/L (3.5-5.1); Sodium 144 mEq/L (136-145); eGFR For African Americans > 60 (> 60); eGFR For Non-African Americans > 60 (> 60)
[2018-03-06] MEDS ORDERED: Ferrous Sulfate Oral Soln 300 MG/5 ML UDC PO SCH (09:00)
[2018-03-06] MEDS: Aspirin 81 MG TAB.CHEW GTUBE SCH (09:08)
[2018-03-06] MEDS: Piperacillin/Tazobactam 3.375 GM in 0.9 % Sodium Chloride Mini Bag 100 ML IVPB SCH (09:08)
[2018-03-06] MEDS: Ferrous Sulfate Oral Soln 300 MG/5 ML UDC GTUBE SCH (09:10)
[2018-03-06] MEDS: Ertapenem 1,000 MG in 0.9 % Sodium Chloride Mini Bag 100 ML IVPB SCH (13:09)
--- NOTE | 2018-03-06 15:43 | Internal Med Progress Note ---
Date of Encounter: 03/06/18 Time of Encounter: 11:00 - Assessment and plan (1) Bacteremia Current Visit: Yes Status: Acute Assessment and plan: secondary to UTI; initial blood cultures grow ESBL E.coli, changed antibiotics to Ertapenem; repeat blood cultures pending; (2) UTI (urinary tract infection) Current Visit: Yes Status: Acute Assessment and plan: UA shows large blood, nitrite positive, large verónica esterase, TNTC RBC and WBC, moderate bacteria; Urine and blood cultures grow ESBL E.coli, will change antibiotics to IV Ertapenem; Qualifiers: Urinary tract infection type: site unspecified Hematuria presence: with hematuria Qualified Code(s): N39.0 - Urinary tract infection, site not specified; R31.9 - Hematuria, unspecified (3) Severe sepsis Current Visit: Yes Status: Acute Assessment and plan: Presented with significant leukocytosis with bandemia, tachycardia, resp failure and lactic acidosis, likely due to Pneumonia and UTI; improved sepsis at this time; lactic acid normalized; continue IV antibiotics as above; (4) Dementia Current Visit: Yes Status: Chronic Assessment and plan: bedbound, intermediate ECF resident; supportive care, fall precautions; Qualifiers: Dementia type: unspecified type Dementia behavioral disturbance: without behavioral disturbance Qualified Code(s): F03.90 - Unspecified dementia without behavioral disturbance (5) DVT prophylaxis Current Visit: Yes Status: Acute (6) HCAP (healthcare-associated pneumonia) Current Visit: Yes Status: Suspected Assessment and plan: HCAP and possible aspiration pneumonia. Changed antibiotics to Ertapenem as mentioned above; O2 support. Nebs. Urine strep and Legionella Ag negative. (7) Elevated troponin Current Visit: Yes Status: Resolved (8) Acute respiratory failure Current Visit: Yes Status: Acute Assessment and plan: due to Pneumonia and possible aspiration; continue antibiotics and O2; Qualifiers: Respiratory failure complication: hypoxia Qualified Code(s): J96.01 - Acute respiratory failure with hypoxia (9) Hypernatremia Current Visit: Yes Status: Acute Assessment and plan: improving; acute on chronic due to dementia and dehydration; (10) Protein-calorie malnutrition, severe Current Visit: Yes Status: Chronic - Time Spent With Patient Total time spent is greater than 50% in coordination of care (as documented) at patient's floor/unit and/or counseling patient: - Subjective Interval history: Unable to provide history or follow commands due to dementia; mostly nonverbal except grunting and moaning; no family at bedside; Noted to be more awake today; BP noted to be high; - Constitutional Vitals: Temp Pulse Resp BP Pulse Ox 98.4 F 120 18 179/94 95 03/06/18 11:50 03/06/18 13:20 03/06/18 13:20 03/06/18 13:20 03/06/18 11:50 General appearance: Present: cachectic, A&O X 0. Absent: answers questions appropriately - Respiratory Respiratory exam: Present: CTAB (coarse breath sounds and faint rales at left base), wheezes (mild, intermittent). Absent: accessory muscle use, rales, rhonchi - Cardiovascular Cardiovascular exam: Present: RRR, +S1, +S2. Absent: diastolic murmur, gallop, rubs, systolic murmur - GI/Abdominal GI/Abdominal exam: Present: normal bowel sounds, soft (PEG tube in place), no peritoneal signs. Absent: distended, tenderness Internal Medicine: Result - Labs CBC & Chem 7: 03/06/18 06:26 03/06/18 06:26 Labs: Short CBC 03/06/18 Range/Units 06:26 WBC 17.7 H (4.3-11.1) K/mcL Hgb 9.9 L D (11.5-15.4) g/dL Hct 30.4 L (35.3-44.9) % Plt Count 238 (140-400) K/mcL Neutrophils # 14.4 H (1.6-8.9) K/mcL BMP 03/06/18 06:26 Sodium 144 Potassium 4.3 D Chloride 120 H Carbon Dioxide 19 L BUN 8 Creatinine 0.67 Glucose 121 H Calcium 8.7 - ABG Interpretation ABG results: PT/INR, D-dimer PT 14.8 Seconds (9.4-12.1) H 03/03/18 08:04 Consult Discharge Plan - Plan Referrals: Wade Metcalf MD [Primary Care Provider] - (This patient is from an [facility] no PCP appointment needed)
[2018-03-06] MEDS: Ipratropium/Albuterol Neb 3 ML IH PRN (16:01)
[2018-03-07] MEDS: *HR* Heparin 5,000 UNIT/ML VIAL SQ SCH ×3 (05:00→22:18)
[2018-03-07] MEDS: Atropine 1% Opth Drops 100 DROP/5 ML BOTTLE SL SCH ×5 (05:02→22:18)
[2018-03-07 05:22] LABS: Basophils % 0.2 %; Eosinophils # 0.8 K/mcL (0.0-0.6); Hematocrit 31.2 % (35.3-44.9); Hemoglobin 9.9 g/dL (11.5-15.4); Immature Granulocytes % 0.7 % (0-4); Lymphocytes # 1.2 K/mcL (0.6-4.6); Lymphocytes % 8.8 %; Mean Corpuscular HGB Conc 31.7 g/dL (31.6-35.5); Mean Corpuscular Hemoglobin 22.7 pg (28.0-33.3); Mean Corpuscular Volume 71.4 fL (83.0-100.0); Mean Platelet Volume 11.9 fL (9.4-12.4); Monocytes % 7.5 %; Neutrophils # 10.2 K/mcL (1.6-8.9); Platelet Count 262 K/mcL (140-400); Red Blood Count 4.37 M/mcL (3.82-4.97); Red Cell Distribution Width 16.6 % (11.5-14.5); Segmented Neutrophils % 76.8 %
[2018-03-07 05:42] LABS: BUN/Creatinine Ratio 12 (6-26); Blood Urea Nitrogen 7 mg/dL (8-23); Calcium 9.1 mg/dL (8.6-10.3); Carbon Dioxide 25 mEq/L (23-29); Chloride 115 mEq/L (98-107); Glucose 116 mg/dL (70-105); Osmolality,Calculated 297 (280-300); Potassium 3.8 mEq/L (3.5-5.1); Sodium 144 mEq/L (136-145); eGFR For African Americans > 60 (> 60); eGFR For Non-African Americans > 60 (> 60)
[2018-03-07] MEDS: Aspirin 81 MG TAB.CHEW GTUBE SCH (09:25)
[2018-03-07] MEDS: Ertapenem 1,000 MG in 0.9 % Sodium Chloride Mini Bag 100 ML IVPB SCH (09:26)
[2018-03-07] MEDS: Ferrous Sulfate Oral Soln 300 MG/5 ML UDC GTUBE SCH (09:26)
[2018-03-07] MEDS ORDERED: hydrALAZINE 25 MG TABLET PO PRN (13:21)
[2018-03-07] MEDS: amLODIPine 5 MG TABLET PO SCH (13:29)
--- NOTE | 2018-03-07 17:39 | Internal Med Progress Note ---
Date of Encounter: 03/07/18 Time of Encounter: 12:30 - Assessment and plan (1) Bacteremia Current Visit: Yes Status: Acute Assessment and plan: ESBL E. coli bactermia 2/2 UTI on urine and initial blood cultures c/w Ertapenem. Improving leukocytosis and has been afebrile. F/u repeat blood cultures on 03/06 (2) UTI (urinary tract infection) Current Visit: Yes Status: Acute Assessment and plan: ESBL E. coli on ertapenem Improving. f/u repeat blood cultures. Qualifiers: Urinary tract infection type: site unspecified Hematuria presence: with hematuria Qualified Code(s): N39.0 - Urinary tract infection, site not specified; R31.9 - Hematuria, unspecified (3) Hypernatremia Current Visit: Yes Status: Acute Assessment and plan: Hypernatremia 2/2 dementia with dehydration IVF in place. Now has resolved. Continue to monitor BMPs. (4) Dementia Current Visit: Yes Status: Chronic Assessment and plan: Significant dementia, nonverbal terminal gauger supervisor ECF resident Supportive care, bedbound. Qualifiers: Dementia type: unspecified type Dementia behavioral disturbance: without behavioral disturbance Qualified Code(s): F03.90 - Unspecified dementia without behavioral disturbance (5) HCAP (healthcare-associated pneumonia) Current Visit: Yes Status: Suspected Assessment and plan: HCAP and possible aspiration PNA urine strep and legionella antigen negative c/w Ertapenem - Time Spent With Patient Total time spent is greater than 50% in coordination of care (as documented) at patient's floor/unit and/or counseling patient: - Subjective Interval history: Patient contracted and nonverbal. Unable to provide any history due to dementia. Awake, moan and groans. - Constitutional Vitals: Temp Pulse Resp BP Pulse Ox 98.0 F 115 19 137/65 95 03/07/18 15:53 03/07/18 15:53 03/07/18 15:53 03/07/18 15:53 03/07/18 15:53 General appearance: Present: cachectic, A&O X 0. Absent: answers questions appropriately Exam: General: Alert, nonverbal. Moan and groans. Contracted. Skin: Normal color, no rash, no lesions. HEENT: EOMI, pupils equal, round and reactive. Cardiovascular: Tachycardic. No murmurs appreciated. Lungs: Mild coarse breath sounds b/l bases. Abdomen:Soft, no rigidity. Extremities: Contracted extremities. cachectic. Neurological:Normal cognition, no weakness, no numbness. Rest of the physical exam is non contributory Internal Medicine: Result - Labs CBC & Chem 7: 03/07/18 04:56 03/07/18 04:56 Labs: Short CBC 03/07/18 Range/Units 04:56 WBC 13.3 H (4.3-11.1) K/mcL Hgb 9.9 L (11.5-15.4) g/dL Hct 31.2 L (35.3-44.9) % Plt Count 262 (140-400) K/mcL Neutrophils # 10.2 H (1.6-8.9) K/mcL BMP 03/07/18 04:56 Sodium 144 Potassium 3.8 Chloride 115 H Carbon Dioxide 25 BUN 7 L Creatinine 0.59 L Glucose 116 H Calcium 9.1 - ABG Interpretation ABG results: PT/INR, D-dimer PT 14.8 Seconds (9.4-12.1) H 03/03/18 08:04 Consult Discharge Plan - Plan Referrals: Wade Metcalf MD [Primary Care Provider] - (This patient is from an ECF no PCP appointment needed)
[2018-03-07] MEDS: Ipratropium/Albuterol Neb 3 ML IH PRN (23:41)
[2018-03-08] MEDS: Atropine 1% Opth Drops 100 DROP/5 ML BOTTLE SL SCH ×6 (00:22→20:33)
[2018-03-08] MEDS: Ferrous Sulfate Oral Soln 300 MG/5 ML UDC GTUBE SCH (08:18)
[2018-03-08] MEDS: amLODIPine 5 MG TABLET PO SCH (08:18)
[2018-03-08] MEDS: *HR* Heparin 5,000 UNIT/ML VIAL SQ SCH ×3 (08:19→20:33)
[2018-03-08] MEDS: Aspirin 81 MG TAB.CHEW GTUBE SCH (08:19)
[2018-03-08] MEDS: Ertapenem 1,000 MG in 0.9 % Sodium Chloride Mini Bag 100 ML IVPB SCH (08:19)
[2018-03-08 10:21] LABS: Basophils % 0.3 %; Eosinophils # 0.5 K/mcL (0.0-0.6); Eosinophils % 5.5 %; Hematocrit 30.2 % (35.3-44.9); Hemoglobin 9.6 g/dL (11.5-15.4); Immature Granulocytes % 1.5 % (0-4); Lymphocytes # 1.1 K/mcL (0.6-4.6); Lymphocytes % 11.1 %; Mean Corpuscular HGB Conc 31.8 g/dL (31.6-35.5); Mean Corpuscular Hemoglobin 22.6 pg (28.0-33.3); Mean Corpuscular Volume 71.1 fL (83.0-100.0); Mean Platelet Volume 11.1 fL (9.4-12.4); Monocytes # 1.2 K/mcL (0.0-1.3); Monocytes % 12.3 %; Neutrophils # 6.7 K/mcL (1.6-8.9); Platelet Count 289 K/mcL (140-400); Red Blood Count 4.25 M/mcL (3.82-4.97); Red Cell Distribution Width 16.7 % (11.5-14.5); Segmented Neutrophils % 69.3 %
[2018-03-08 10:40] LABS: Blood Urea Nitrogen 8 mg/dL (8-23); Carbon Dioxide 28 mEq/L (23-29); Chloride 110 mEq/L (98-107); Potassium 3.4 mEq/L (3.5-5.1); Sodium 143 mEq/L (136-145)
[2018-03-08 10:41] LABS: BUN/Creatinine Ratio 13 (6-26); Calcium 9.2 mg/dL (8.6-10.3); Glucose 122 mg/dL (70-105); Osmolality,Calculated 296 (280-300); eGFR For African Americans > 60 (> 60); eGFR For Non-African Americans > 60 (> 60)
--- NOTE | 2018-03-08 17:07 | Internal Med Progress Note ---
Date of Encounter: 03/08/18 Time of Encounter: 12:30 - Assessment and plan (1) UTI (urinary tract infection) Current Visit: Yes Status: Acute Assessment and plan: ESBL E. coli bactermia 2/2 UTI on urine and initial blood cultures c/w Ertapenem. Improving leukocytosis and has been afebrile. F/u repeat blood cultures on 03/06 Qualifiers: Urinary tract infection type: site unspecified Hematuria presence: with hematuria Qualified Code(s): N39.0 - Urinary tract infection, site not specified; R31.9 - Hematuria, unspecified (2) Hypernatremia Current Visit: Yes Status: Resolved Assessment and plan: Resolved. 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 Qualifiers: Dementia type: unspecified type Dementia behavioral disturbance: without behavioral disturbance Qualified Code(s): F03.90 - Unspecified dementia without behavioral disturbance (4) HCAP (healthcare-associated pneumonia) Current Visit: Yes Status: Suspected Assessment and plan: Suspected HCAP as patient is a [place] resident Reportedly hypoxic to 70s prior to admission. However, CXR with no evidence for any acute cardiopulmonary disease. Has been saturating well on room air with resolution of leukocytosis On Ertapenem - Time Spent With Patient Total time spent is greater than 50% in coordination of care (as documented) at patient's floor/unit and/or counseling patient: - Subjective Interval history: Patient contracted and alert. Does not normally speak but reportedly say a few words when turned in bed this morning. - Constitutional Vitals: Temp Pulse Resp BP Pulse Ox 98 F 95 20 130/70 100 03/08/18 16:06 03/08/18 16:06 03/08/18 16:06 03/08/18 16:06 03/08/18 16:06 General appearance: Present: cachectic, A&O X 0. Absent: answers questions appropriately Exam: General: Alert, nonverbal. Moan and groans. Contracted. Skin: Normal color, no rash, no lesions. HEENT: EOMI, pupils equal, round and reactive. Cardiovascular: Tachycardic. No murmurs appreciated. Lungs: Mild coarse breath sounds b/l bases. Abdomen:Soft, no rigidity. Extremities: Contracted extremities. cachectic. Neurological:Normal cognition, no weakness, no numbness. Rest of the physical exam is non contributory Internal Medicine: Result - Labs CBC & Chem 7: 03/08/18 10:13 03/08/18 10:13 Labs: Short CBC 03/08/18 Range/Units 10:13 WBC 9.6 (4.3-11.1) K/mcL Hgb 9.6 L (11.5-15.4) g/dL Hct 30.2 L (35.3-44.9) % Plt Count 289 (140-400) K/mcL Neutrophils # 6.7 (1.6-8.9) K/mcL BMP 03/08/18 10:13 Sodium 143 Potassium 3.4 L Chloride 110 H Carbon Dioxide 28 BUN 8 Creatinine 0.61 Glucose 122 H Calcium 9.2 - ABG Interpretation ABG results: PT/INR, D-dimer PT 14.8 Seconds (9.4-12.1) H 03/03/18 08:04 Consult Discharge Plan - Plan Referrals: Wade Metcalf MD [Primary Care Provider] - (This patient is from an [facility] no PCP appointment needed)
[2018-03-09] MEDS: Atropine 1% Opth Drops 100 DROP/5 ML BOTTLE SL SCH ×4 (03:56→12:00)
[2018-03-09] MEDS: *HR* Heparin 5,000 UNIT/ML VIAL SQ SCH (05:21)
[2018-03-09 05:47] LABS: Basophils % 0.3 %; Eosinophils # 0.8 K/mcL (0.0-0.6); Eosinophils % 8.2 %; Hematocrit 30.1 % (35.3-44.9); Hemoglobin 9.3 g/dL (11.5-15.4); Immature Granulocytes % 1.2 % (0-4); Lymphocytes # 1.4 K/mcL (0.6-4.6); Mean Corpuscular HGB Conc 30.9 g/dL (31.6-35.5); Mean Corpuscular Hemoglobin 21.9 pg (28.0-33.3); Mean Platelet Volume 11.2 fL (9.4-12.4); Monocytes # 1.2 K/mcL (0.0-1.3); Neutrophils # 6.3 K/mcL (1.6-8.9); Nucleated Red Blood Cells 0.2 /100 WBC (0); Platelet Count 354 K/mcL (140-400); Red Blood Count 4.24 M/mcL (3.82-4.97); Red Cell Distribution Width 17.2 % (11.5-14.5); Segmented Neutrophils % 64.3 %
[2018-03-09 05:50] LABS: Alanine Aminotransferase 14 Units/L (7-52); Alkaline Phosphatase 65 Units/L (34-104); Aspartate Amino Transferase 12 Units/L (13-39); BUN/Creatinine Ratio 16 (6-26); Bilirubin,Total 0.2 mg/dL (0.3-1.0); Blood Urea Nitrogen 9 mg/dL (8-23); Calcium 9.3 mg/dL (8.6-10.3); Carbon Dioxide 30 mEq/L (23-29); Chloride 111 mEq/L (98-107); Globulin 2.9 g/dL (2.4-3.5); Glucose 116 mg/dL (70-105); Osmolality,Calculated 298 (280-300); Potassium 4.1 mEq/L (3.5-5.1); Sodium 144 mEq/L (136-145); Total Protein 5.9 g/dL (6.4-8.9); eGFR For African Americans > 60 (> 60); eGFR For Non-African Americans > 60 (> 60)
[2018-03-09] MEDS: Ferrous Sulfate Oral Soln 300 MG/5 ML UDC GTUBE SCH (08:51)
[2018-03-09] MEDS: Ertapenem 1,000 MG in 0.9 % Sodium Chloride Mini Bag 100 ML IVPB SCH (08:52)
[2018-03-09] MEDS: amLODIPine 5 MG TABLET PO SCH (08:52)
[2018-03-09] MEDS: Aspirin 81 MG TAB.CHEW GTUBE SCH (08:52)
[2018-03-09] MEDS: Ipratropium/Albuterol Neb 3 ML IH PRN (12:21)
[2018-03-09 12:47] VITALS: BP 156/74
--- NOTE | 2018-03-09 12:58 | Discharge Summary ---
Orders not resulted at time of discharge: Pending orders 03/06/18 10:01 Culture,Blood [BC] Routine Date of Encounter: 03/09/18 Time of Encounter: 10:00 - Discharge Diagnosis (1) UTI (urinary tract infection) Priority: Primary Status: Acute Assessment and Plan: ESBL E. coli bactermia 2/2 UTI on urine and initial blood cultures c/w Ertapenem. Improving leukocytosis and has been afebrile. Significant clinical improvement. One ertapnem, will discharge will complete 14 days course. Day 4 today, will discharge with 10 more days of IV Antibiotics. Already has an IV line that can be used for IV Abx outside of the hospital. repeat blood cultures on 03/06 negative to date Qualifiers: Urinary tract infection type: site unspecified Hematuria presence: with hematuria Qualified Code(s): N39.0 - Urinary tract infection, site not specified; R31.9 - Hematuria, unspecified (2) HCAP (healthcare-associated pneumonia) Priority: Primary Status: Suspected Assessment and Plan: Suspected HCAP as patient is a [place] resident Reportedly hypoxic to 70s prior to admission. However have been saturating very on RA currently with no signs of infection. CXR with no evidence for any acute cardiopulmonary disease. resolution of leukocytosis Since patient already on Ertapenem for bacteremia will also cover for PNA Will complete 14 days course (3) Dementia Priority: Secondary Status: Chronic Qualifiers: Dementia type: unspecified type Dementia behavioral disturbance: without behavioral disturbance Qualified Code(s): F03.90 - Unspecified dementia without behavioral disturbance Hospital course: Ms. Mccain is a 87 year old female with dementia trasnferred from correction for low oxygen saturation found to have a UTI with ESBL E. coli bacteremia. She was treated for the UTI as well as possible given the desaturation but CXR showed not clear evident for PNA. Course was also complicated by hypernaremia likely 2/2 dehydration. Patient improved quickly and clinically stable with no fevers and resolved leukocytosis. Plan for discharge to complete course of Ertapenem with covers both the ESBL from UTI as well as possible PNA. Discharge discussed with: nurse, social work, case management - Time Spent with Patient Total time spent providing and/or coordinating discharge services: - Discharge Medications Home Medications: Acetaminophen [Tylenol 650mg SUPP] 650 mg RC Q6H PRN 03/03/18 [History] Albuterol Neb [Proventil Neb] 2.5 mg IH Q2H PRN 03/03/18 [History] Aspirin Enteric Coated [Aspirin EC] 81 mg PO DAILY 03/03/18 [History] Atropine 1% Opth Drops 1 drop SL Q4H 03/03/18 [History] Donepezil HCl [Aricept] 10 mg PO DAILY 03/03/18 [History] Ferrous Sulfate [Iron] 325 mg PO DAILY 03/03/18 [History] Loratadine [Allergy Relief] 10 mg PO DAILY PRN 03/03/18 [History] MORPHINE SUL Oral CONC [Roxanol Oral Conc] 0.25 ml SL Q4H PRN 03/03/18 [History] Sennosides [Senna] 8.6 mg PO DAILY 03/03/18 [History] Sucralfate [Carafate] 1 gm PO BID 03/03/18 [History] amLODIPine [Norvasc] 5 mg PO DAILY tablet 03/09/18 [Rx] Allergies/Adverse Reactions: 3 Allergy/AdvReac Type Severity Reaction Status Date / Time No Known Allergies Allergy Verified 03/03/18 07:40 Date of admission: 03/03/18 11:36 Primary care physician: Wade Metcalf MD Consults: 03/04/18 10:16 dietary consult [Consult to Nutrition] [CONS] Routine Comment: Consulting Provider: NUTRITION Reason for Dietary Consult: Tube Feed Start & Manage 03/09/18 07:51 Consult to Car Checker [CONS] Routine Reason for SW Consult: rtn [facility] - Constitutional Vitals: Temp Pulse Resp BP Pulse Ox 98.3 F 118 18 156/74 97 03/09/18 12:39 03/09/18 12:39 03/09/18 12:39 03/09/18 12:39 03/09/18 12:39 General appearance: Present: cachectic, A&O X 0. Absent: answers questions appropriately Exam: General: Alert, nonverbal. Moan and groans. Contracted. Skin: Normal color, no rash, no lesions. HEENT: EOMI, pupils equal, round and reactive. Cardiovascular: Tachycardic. No murmurs appreciated. Lungs: expiratory wheezes in b/l bases. Abdomen:Soft, no rigidity. Extremities: Contracted extremities. cachectic. Neurological:Normal cognition, no weakness, no numbness. Rest of the physical exam is non contributory - Patient Status Disposition: Transfer SNF Overall status at discharge: patient is progressing back to baseline - Discharge Instructions Follow Up With: Wade Metcalf MD [Primary Care Provider] - (This patient is from an ECF no PCP appointment needed) Forms: ED Satisfaction Letter - Diet and Activity Activity: resume usual activities as tolerated
--- NOTE | 2018-03-09 14:29 | Physician Discharge Referral ---
[facility] Referral Info Transfer To: [facility] - Diagnosis (1) UTI (urinary tract infection) Status: Acute (2) HCAP (healthcare-associated pneumonia) Status: Suspected (3) Dementia Status: Chronic - Transfer Medications Home Medications: Acetaminophen [Tylenol 650mg SUPP] 650 mg RC Q6H PRN 03/03/18 [History] Albuterol Neb [Proventil Neb] 2.5 mg IH Q2H PRN 03/03/18 [History] Aspirin Enteric Coated [Aspirin EC] 81 mg PO DAILY 03/03/18 [History] Atropine 1% Opth Drops 1 drop SL Q4H 03/03/18 [History] Donepezil HCl [Aricept] 10 mg PO DAILY 03/03/18 [History] Ferrous Sulfate [Iron] 325 mg PO DAILY 03/03/18 [History] Loratadine [Allergy Relief] 10 mg PO DAILY PRN 03/03/18 [History] MORPHINE SUL Oral CONC [Roxanol Oral Conc] 0.25 ml SL Q4H PRN 03/03/18 [History] Sennosides [Senna] 8.6 mg PO DAILY 03/03/18 [History] Sucralfate [Carafate] 1 gm PO BID 03/03/18 [History] amLODIPine [Norvasc] 5 mg PO DAILY tablet 03/09/18 [Rx] Allergies/Adverse Reactions: 3 Allergy/AdvReac Type Severity Reaction Status Date / Time No Known Allergies Allergy Verified 03/03/18 07:40 - Respiratory Orders Smoking Cessation: Smoking cessation has been advised. For more information, call the [place] Tobacco Quit Line at 7-978-MDBR-NOW. CERTIFICATION: I certify that the transfer of the above named patient to an Extended Care Facility is necessary for the continuing treatment of the diagnosis listed. The above information is true and accurate reflection of patient's current condition. Confidential - Redisclosure prohibited without a patient's written consent.
== END 2018-03-09 15:33 | DRG 720 ==
LOC: EMEROO 07:23 → ICNU 07:23 → SUATTDRO 11:36 → ICNU 12:31 → 2NNU 18:08 → 2ANU 03-06 11:08
PROVIDERS: ADMIT Internal Medicine; ATTEND Student in an Organized Health Care Education/Training Program

== ENCOUNTER 2018-06-16 23:24 | Inpatient (IN) ==
[2018-06-16] MEDS ORDERED: Piperacillin/Tazobactam 3.375 GM in Water for inj. (sterile) 20 ML 20 ML IVP ONE (23:32)
[2018-06-16] MEDS ORDERED: Levofloxacin 750 MG/150 ML 750 MG/150 ML BAG IVPB ONE (23:32)
[2018-06-16] MEDS ORDERED: Ipratropium/Albuterol Neb 3 ML IH ONE (23:32)
[2018-06-16] MEDS ORDERED: Vancomycin 1,000 MG VIAL IVPB ONE (23:32)
[2018-06-16] MEDS ORDERED: 0.9 % Sodium Chloride 1,000 ML IVC ONE (23:32)
[2018-06-16] MEDS ORDERED: Ketorolac 15 MG/ML VIAL IVP ONE (23:36)
--- NOTE | 2018-06-16 23:37 | Emergency Department Note ---
Disposition Clinical Impression: HCAP (healthcare-associated pneumonia), Respiratory distress, Elevated troponin , JEANNIE (acute kidney injury) UTI (urinary tract infection) Qualifiers: Urinary tract infection type: acute cystitis Hematuria presence: without hematuria Qualified Code(s): N30.00 - Acute cystitis without hematuria Sepsis Qualifiers: Sepsis type: sepsis due to unspecified organism Qualified Code(s): A41.9 - Sepsis, unspecified organism Disposition: Admitted As Inpatient Condition: Fair General Adult HPI - General Chief complaint: ED Shortness of Breath/Dyspnea Time Seen by Provider: 06/16/18 23:32 Source: EMS Limitations: altered mental status Nursing Notes Reviewed: Yes Vital Signs Reviewed: Yes - History of Present Illness HPI Narrative: 88-year-old female presents emergency department with concern for respiratory distress. Patient was a nursing facility. Brought in by EMS. Patient was on nonrebreather. No diarrhea per family recently. Reported decreased urination. Daughter was concern for possible urinary tract infection. Patient nonverbal at baseline. Pain Scale: 0 - Related Data Home Medications Medication Instructions Recorded Confirmed Acetaminophen [Tylenol 650mg SUPP] 650 mg RC Q6H PRN 03/03/18 06/07/18 Albuterol Neb [Proventil Neb] 2.5 mg IH Q2H PRN 03/03/18 06/07/18 Aspirin Enteric Coated [Aspirin EC] 81 mg PO DAILY 03/03/18 06/07/18 Atropine 1% Opth Drops 1 drop SL Q4H 03/03/18 06/07/18 Donepezil HCl [Aricept] 10 mg PO DAILY 03/03/18 06/07/18 Ferrous Sulfate [Iron] 325 mg PO DAILY 03/03/18 06/07/18 Loratadine [Allergy Relief] 10 mg PO DAILY PRN 03/03/18 06/07/18 MORPHINE SUL Oral CONC [Roxanol 0.25 ml SL Q4H PRN 03/03/18 06/07/18 Oral Conc] Sennosides [Senna] 8.6 mg PO DAILY 03/03/18 06/07/18 Sucralfate [Carafate] 1 gm PO BID 03/03/18 06/07/18 Previous Rx's Medication Instructions Recorded amLODIPine [Norvasc] 5 mg PO DAILY tablet 03/09/18 Allergies Allergy/AdvReac Type Severity Reaction Status Date / Time No Known Allergies Allergy Verified 03/03/18 07:40 All systems ED: reviewed and negative except as stated. Review of Systems: As Per HPI Limitations: ROS unobtainable due to patients medical condition Constitutional: Reports: fever Respiratory: Reports: dyspnea Genitourinary: Reports: other (Difference in color of urine) Hematological/Lymphatic: Denies: easy bleeding Past Medical History - Past Medical History Medical history: Reports: dementia, hyperlipidemia Surgical history: Reports: no surgical history Psychiatric history: Reports: anxiety, depression NUTRITIONAL SERVICES COOK history: Reports: non-contributory - Social History Smoking Status: Unknown if ever smoked Smokeless Tobacco Status: No Alcohol use: Reports: none Drug use: Reports: none Physical Exam - General Limitations: altered mental status General appearance: in distress (Respiratory) - Head Head exam: atraumatic - Eye Eye exam: Absent: scleral icterus - ENT ENT exam: mucous membranes dry - Neck Neck exam: Present: trachea midline - Chest Chest inspection: Present: symmetric chest wall rise - Respiratory Respiratory exam: Present: respiratory distress, other (Rales throughout) - Cardiovascular Cardiovascular exam: Present: normal rhythm, tachycardia, normal heart sounds - Abdominal Exam Abdominal exam: Present: soft, Non-Tender. Absent: distention, guarding, rebound, rigidity - Extremities Exam Extremities exam: Present: normal capillary refill - Back Exam Back exam: Present: full ROM - Neurological Exam Neurological exam: Present: alert - Skin Skin exam: Present: warm Course Vital Signs Temperature 103.6 F H 06/16/18 23:26 Pulse Rate 140 06/16/18 23:26 Respiratory Rate 28 06/16/18 23:26 Blood Pressure 151/116 06/16/18 23:26 O2 Sat by Pulse Oximetry 100 06/16/18 23:26 Temperature 99.0 F 06/17/18 03:05 Pulse Rate 106 06/17/18 03:05 Respiratory Rate 19 06/17/18 03:05 Blood Pressure 103/60 06/17/18 03:05 O2 Sat by Pulse Oximetry 100 06/17/18 03:05 Oxygen Delivery Oxygen Delivery Oximizer Medical Decision Making - MDM Narrative Medical decision making narrative: 88-year-old female past medical history of COPD, baseline dementia, presents emergency Department with respiratory distress. Patient was febrile [place] the emergency department. She was on a nonrebreather mask to maintain oxygen saturation of 100%. Due to her being sent to, however, we applied BiPAP. Patient not tolerate BiPAP too well and became very agitated with up. We removed the BiPAP mask in place patient on oxygen at at 15 L of oxygen. Patient was febrile and tachycardic. Leukocytosis of 34.7. We immediately initiated sepsis protocol. Blood cultures, lactic acid were obtained. This lactic acid was 9.3. Patient also had a troponin of 0.08. His most likely to demand ischemia secondary to patient's infection. No ischemic ST changes noted on the EKG. Patient was given Tylenol and Toradol. DuoNeb's and Solu-Medrol. Blood Patient started on vancomycin, Zosyn, Levaquin immediately. Patient has evidence of urinary tract infection. Current antimicrobial management will cover. Given 30 mL/kg bolus. Patient was not hypotensive. Patient was on her percent on 15 L of oxygen via oxygen mask. SATURATION was 100 percent. We decided to reduce it to 10 L of oxygen. Throughout her stay, patient did not appear to worsen clinically. Heart rate went into the low 110s. Patient admitted to the hospitalist who agreed to accept patient for admission. Discussed this with family at bedside. They agree with plan. Chest X-Ray 06/16/18 23:32 IMPRESSION: No acute process. D/ / Donavon Arellano MD / Donavon Arellano MD Interpreting Provider: Donavon Arellano MD Vital Signs Temperature 103.6 F H 06/16/18 23:26 Pulse Rate 140 06/16/18 23:26 Respiratory Rate 28 06/16/18 23:26 Blood Pressure 151/116 06/16/18 23:26 O2 Sat by Pulse Oximetry 100 06/16/18 23:26 Temperature 99.0 F 06/17/18 03:05 Pulse Rate 106 06/17/18 03:05 Respiratory Rate 19 06/17/18 03:05 Blood Pressure 103/60 06/17/18 03:05 O2 Sat by Pulse Oximetry 100 06/17/18 03:05 Oxygen Delivery Oxygen Delivery Oximizer - Lab Data Result diagrams: 06/17/18 03:16 06/17/18 03:16 Lab Results 06/16/18 06/16/18 06/16/18 Range/Units 23:49 23:55 23:55 WBC 34.5 H* D (4.3-11.1) K/mcL RBC 5.38 H (3.82-4.97) M/mcL Hgb 11.1 L (11.5-15.4) g/dL Hct 36.6 (35.3-44.9) % MCV 68.0 L (83.0-100.0) fL MCH 20.6 L (28.0-33.3) pg MCHC 30.3 L (31.6-35.5) g/dL RDW 18.4 H (11.5-14.5) % Plt Count 303 (140-400) K/mcL MPV 9.7 (9.4-12.4) fL Seg Neutrophils % 80.0 % Band Neutrophils % 14.0 H (0-4) % Lymphocytes % 2.0 % Monocytes % 2.0 % Metamyelocytes % 2.0 H (0) % Neutrophils # 32.4 H (1.6-8.9) K/mcL Lymphocytes # 0.7 (0.6-4.6) K/mcL Monocytes # 0.7 (0.0-1.3) K/mcL Nucleated RBCs/100 WBC 0.1 H (0) /100 WBC Platelet Estimate Normal (Normal) Large Platelets Present A (Not Present) Anisocytosis 1+ A (Not Present) Microcytosis Present A (Not Present) Sodium 149 H (136-145) mEq/L Potassium 3.7 (3.5-5.1) mEq/L Chloride 111 H (98-107) mEq/L Carbon Dioxide 21 L (23-29) mEq/L BUN 25 H (8-23) mg/dL Creatinine 1.34 H (0.60-1.20) mg/dL Est GFR ( Amer) 45 L (> 60) Est GFR (Non-Af Amer) 37 L (> 60) BUN/Creatinine Ratio 19 (6-26) Glucose 117 H (70-105) mg/dL Calculated Osmolality 313 H (280-300) Lactic Acid (0.5-2.2) mmol/L Calcium 9.5 (8.6-10.3) mg/dL Troponin I 0.08 H* (< 0.04) ng/mL B-Natriuretic Peptide (Less than 100) pg/mL Urine Color Yellow (Yellow) Urine Clarity Clear (Clear) Urine pH >=9.0 H (5.0-8.0) pH Units Ur Specific [place] 1.010 (1.010-1.025) Urine Protein 100 H (Neg-Trace) mg/dL Urine Glucose (UA) Normal (Normal) mg/dL Urine Ketones Negative (Negative) mg/dL Urine Blood Negative (Negative) Urine Nitrite Positive A (Negative) Urine Bilirubin Negative (Negative) Urine Urobilinogen Normal (Normal) mg/dL Ur Leukocyte Esterase Moderate H (Negative) Urine Microscopic RBC 0-3 (0-3) per hpf Urine Microscopic WBC 3-5 H (0-3) per hpf Ur Squamous Epith Cells Few (None-Few) per lpf Triple Phos Crystals Present Urine Bacteria Many H (None-Few) per hpf Ur Culture Indicated? YES A (NO) 06/16/18 06/16/18 Range/Units 23:55 23:55 WBC (4.3-11.1) K/mcL RBC (3.82-4.97) M/mcL Hgb (11.5-15.4) g/dL Hct (35.3-44.9) % MCV (83.0-100.0) fL MCH (28.0-33.3) pg MCHC (31.6-35.5) g/dL RDW (11.5-14.5) % Plt Count (140-400) K/mcL MPV (9.4-12.4) fL Seg Neutrophils % % Band Neutrophils % (0-4) % Lymphocytes % % Monocytes % % Metamyelocytes % (0) % Neutrophils # (1.6-8.9) K/mcL Lymphocytes # (0.6-4.6) K/mcL Monocytes # (0.0-1.3) K/mcL Nucleated RBCs/100 WBC (0) /100 WBC Platelet Estimate (Normal) Large Platelets (Not Present) Anisocytosis (Not Present) Microcytosis (Not Present) Sodium (136-145) mEq/L Potassium (3.5-5.1) mEq/L Chloride (98-107) mEq/L Carbon Dioxide (23-29) mEq/L BUN (8-23) mg/dL Creatinine (0.60-1.20) mg/dL Est GFR ( Amer) (> 60) Est GFR (Non-Af Amer) (> 60) BUN/Creatinine Ratio (6-26) Glucose (70-105) mg/dL Calculated Osmolality (280-300) Lactic Acid 9.3 H* (0.5-2.2) mmol/L Calcium (8.6-10.3) mg/dL Troponin I (< 0.04) ng/mL B-Natriuretic Peptide 372 H (Less than 100) pg/mL Urine Color (Yellow) Urine Clarity (Clear) Urine pH (5.0-8.0) pH Units Ur Specific [place] (1.010-1.025) Urine Protein (Neg-Trace) mg/dL Urine Glucose (UA) (Normal) mg/dL Urine Ketones (Negative) mg/dL Urine Blood (Negative) Urine Nitrite (Negative) Urine Bilirubin (Negative) Urine Urobilinogen (Normal) mg/dL Ur Leukocyte Esterase (Negative) Urine Microscopic RBC (0-3) per hpf Urine Microscopic WBC (0-3) per hpf Ur Squamous Epith Cells (None-Few) per lpf Triple Phos Crystals Urine Bacteria (None-Few) per hpf Ur Culture Indicated? (NO) - EKG Data EKG #1 EKG attestation: Yes I reviewed and interpreted this EKG. EKG results narrative: Heart rate 142 bpm, P waves, QT 288 ms, normal QT intervals. Sinus tachycardia with a ventricular rate of 142 bpm. Normal axis. There are ST depressions in lateral leads consistent with demand ischemia.
[2018-06-17 00:20] LABS: Mean Corpuscular Hemoglobin 20.6 pg (28.0-33.3)
[2018-06-17 00:21] LABS: Hematocrit 36.6 % (35.3-44.9); Hemoglobin 11.1 g/dL (11.5-15.4); Mean Corpuscular HGB Conc 30.3 g/dL (31.6-35.5); Mean Platelet Volume 9.7 fL (9.4-12.4); Monocytes # 0.7 K/mcL (0.0-1.3); Nucleated Red Blood Cells 0.1 /100 WBC (0); Platelet Count 303 K/mcL (140-400); Red Blood Count 5.38 M/mcL (3.82-4.97); Red Cell Distribution Width 18.4 % (11.5-14.5)
[2018-06-17 00:28] LABS: Bilirubin,Urine Negative (Negative); Blood,Urine Negative (Negative); Clarity,Urine Clear (Clear); Color,Urine Yellow (Yellow); Glucose,Urine (UA) Normal (Normal); Ketones,Urine Negative (Negative); Leukocyte Esterase,Urine Moderate (Negative); Nitrite,Urine Positive (Negative); PH,Urine >=9.0 pH Units (5.0-8.0); Protein,Urine 100 mg/dL (Neg-Trace); Urobilinogen,Urine Normal (Normal)
[2018-06-17 00:32] LABS: RBC,Urine 0-3 per hpf (0-3)
[2018-06-17 00:33] LABS: Bacteria,Urine Many per hpf (None-Few); Squamous Epithelial Cell,Urine Few per lpf (None-Few); Triple Phosphate Crystal,Urine Present
[2018-06-17 00:36] LABS: Platelet Estimate Normal (Normal)
[2018-06-17 00:39] LABS: Lymphocytes # 0.7 K/mcL (0.6-4.6); Microcytosis Present (Not Present); Neutrophils # 32.4 K/mcL (1.6-8.9)
[2018-06-17 00:41] LABS: Anisocytosis 1+ (Not Present); Calcium 9.5 mg/dL (8.6-10.3); Potassium 3.7 mEq/L (3.5-5.1)
[2018-06-17 00:42] LABS: Large Platelets Present (Not Present)
[2018-06-17 00:46] LABS: Troponin I 0.08 ng/mL (< 0.04)
[2018-06-17] MEDS ORDERED: Acetaminophen 650 MG RECTAL SUPP RC ONE (00:46)
[2018-06-17] MEDS ORDERED: 0.9 % Sodium Chloride 500 ML IVC ONE (00:49)
[2018-06-17] MEDS ORDERED: methylPREDNISolone 125 MG/2 ML VIAL IVP ONE (00:50)
[2018-06-17] MEDS ORDERED: Piperacillin/Tazobactam 3.375 GM in 0.9 % Sodium Chloride Mini Bag 100 ML IVP ONE (01:00)
[2018-06-17] MEDS ORDERED: Ringers Solution, Lactated 1,000 ML IVC SCH (02:00)
--- NOTE | 2018-06-17 02:18 | Internal Med History&Physical ---
<Ian Garcia - Last Filed: 06/17/18 03:01> Date of Encounter: 06/17/18 Time of Encounter: 01:45 Internal Medicine - H&P: HPI Chief complaint: Fever and foul urine Admitted From: Emergency Dept Plans for Post Hospital Care: Transfer Intermediate Facility History of present illness: Ms. Mccain is a 88 year old female with history of end-stage dementia, hyperlipidemia, hypernatremia, left heel ulcer and recurrent ESBL UTIs who presents to the emergency room from [facility] due to complaints of fever and foul urine for approximately 2 days indication and acute hypoxia this evening. The patient is accompanied by her daughter who is a retired critical care nurse. The patient was recently admitted to [facility] for similar symptoms including low oxygen saturation and UTI with ESBL Escherichia coli bacteremia and March 2018 and completed a course of antibiotics before being discharged back to her long-term care facility. She has since been able to stay there for the most part, however. About a month ago require insertion of long-term Morin catheter. This has largely been uncomplicated until approximately 2 days ago when her daughter noticed that the urine came foul color and malodorous, that she was having leaking around the site of the Morin catheter. The patient apparently did present to wound care yesterday for debridement of her heel ulcer at which time she appeared relatively normal and had labs which demonstrated only mild leukocytosis, however she did demonstrate a significant hypernatremia at that time as well. Since that time, the patient has sharply declining clinical status, and has developed significant respiratory distress as well. Her family was concerned, and she was brought to the emergency room for evaluation because she has had septic shock previously. To the daughter's knowledge, the only symptoms that the patient is experiencing early spell smelling and colored., Heel ulcer, fast heart rate, fever and decreased oxygen saturation. She does mention that the patient occasionally has been gurgling sounds when she breathes and she has concerns that the patient sometimes has aspiration, however she does need suction due to the Alzheimer's because she is not always able to clear her secretions on her own and this is not new. She otherwise has no acute complaints. In the emergency room, the patient had repeat labs which demonstrated a leukocytosis of 34.5, with 14% bands she also was found to be febrile with a fever of 103.6, heart rate 132, respirations 30, BP 103/73. The patient was also demonstrated to be hypernatremic with sodium 149, bicarbonate 21, JEANNIE with a serum creatinine 1.34 from 0.5 yesterday lactic acidosis with a lactate of 9.3. The patient did have a chest x-ray which demonstrated no acute intrathoracic process. UA demonstrated large leukocyte esterase and nitrite positivity. She immediately received 2.5 L normal saline bolus, a dose of vancomycin, Zosyn, and Levaquin as well as a dose of Solu-Medrol and was admitted for septic shock. Family Hx: noncontributory Past Med Surg Social Fam HX - Past Medical History Medical history: dementia, hyperlipidemia Additional medical history: hypernatremia, AMS, alzheimers Psychiatric history: anxiety, depression - Past Surgical History Surgical History: no surgical history Additional surgical history: Tubal ligation. AAA repair. Femoral Graft left. Peg Tube - Social History Smoking Status: Unknown if ever smoked Smokeless Tobacco Status: No Alcohol use: none Drug use: none Internal Medicine - H&P: Meds RX: Acetaminophen [Tylenol 650mg SUPP] 650 mg RC Q6H PRN 03/03/18 [History] RX: Albuterol Neb [Proventil Neb] 2.5 mg IH Q2H PRN 03/03/18 [History] RX: Aspirin Enteric Coated [Aspirin EC] 81 mg PO DAILY 03/03/18 [History] RX: Atropine 1% Opth Drops 1 drop SL Q4H 03/03/18 [History] RX: Donepezil HCl [Aricept] 10 mg PO DAILY 03/03/18 [History] RX: Ferrous Sulfate [Iron] 325 mg PO DAILY 03/03/18 [History] RX: Loratadine [Allergy Relief] 10 mg PO DAILY PRN 03/03/18 [History] RX: MORPHINE SUL Oral CONC [Roxanol Oral Conc] 0.25 ml SL Q4H PRN 03/03/18 [ History] RX: Sennosides [Senna] 8.6 mg PO DAILY 03/03/18 [History] RX: Sucralfate [Carafate] 1 gm PO BID 03/03/18 [History] RX: amLODIPine [Norvasc] 5 mg PO DAILY tablet 03/09/18 [Rx] 3 Allergy/AdvReac Type Severity Reaction Status Date / Time No Known Allergies Allergy Verified 03/03/18 07:40 ROS unobtainable: due to mental status All Systems PM: A 10-system review of systems was performed and is negative for pertinent findings except as documented above in the HPI. - Constitutional Vitals: Temp Pulse Resp BP Pulse Ox 99.2 F 107 26 109/88 100 06/17/18 02:14 06/17/18 02:14 06/17/18 02:14 06/17/18 02:14 06/17/18 02:14 Exam: Gen: Vitals noted. Frail-appearing, does not respond to commands. HEENT: Normocephalic, atraumatic. Dry mucous membranes. Neck: Supple. No adenopathy. Cardiac: RRR, no murmur, +S1/S2 Pulmonary: CTA bilaterally, no wheezes, rales or rhonchi, equal chest expansion Abdomen: soft, nontender, no guarding Back: Nontender throughout. MSK: ROM intact, no joint swelling noted Extremities: no BLE edema, nontender calf, no cyanosis or clubbing. There is an ulcer that is wrapped on the left heel. Neuro: Patient is alert, non-communicative Psych: Does not speak or follow commands Internal Med - H&P Results - Labs CBC & Chem 7: 06/16/18 23:55 06/16/18 23:55 - Assessment and plan (1) Septic shock Current Visit: Yes Status: Acute Assessment and plan: Septic shock secondary to UTI, presumed ESBL E. Coli Criteria: Fever 103.6, Tachycardia, Tachypnea, Leukocytosis WBC 34.5 with 14% Bands, Lactic Acid 9.3 Patient presents with Severe lactic acidosis, evidence of end organ damage with JEANNIE She has been responsive to fluid boluses thus far, received 2.5L in the ED Also received Vancomycin, Zosyn, Levaquin in the ED Given history of ESBL E. Coli bacteremia and bacturia we will need to extend coverage We will start with broader coverage Meropenem Day 1 Vancomycin Day 1 May deescalate pending blood and urine cultures Continue d5 0.45 NS @ 75mL/hr Repeat Lactic acid, CBC, CMP Reassess in 4 hours (2) UTI (urinary tract infection) Current Visit: Yes Status: Acute Assessment and plan: Acute complicated cystitis, presumed ESBL E. Coli Patient has history of multiple ESBL infections Urinanalysis is positive for nitrites and leukocyte esterase We will start meropenem and vancomycin as above Exchange morin catheter Qualifiers: Urinary tract infection type: acute cystitis Hematuria presence: without hematuria Qualified Code(s): N30.00 - Acute cystitis without hematuria (3) Acute respiratory failure Current Visit: Yes Status: Acute Assessment and plan: Acute hypoxic respiratory failure Likely secondary to sepsis, tachycardia and increased demand No evidence of pneumonia at this time either clinically or on imaging We will continue to monitor, Provide supplemental O2 Qualifiers: Respiratory failure complication: hypoxia Qualified Code(s): J96.01 - Acute respiratory failure with hypoxia (4) Hypernatremia Current Visit: Yes Status: Acute Assessment and plan: Hypernatremia, appears chronic Presents with sodium 149 which was elevated over past two days on labs as well Patient does get free water pushes per PEG at [facility] however daughter is concerned that she has not been getting them We will give hypotonic fluid resuscitation, 200mL Free water pushed per PEG q4h (5) JEANNIE (acute kidney injury) Current Visit: Yes Status: Acute Assessment and plan: Acute kidney injury, Serum creatinine 1.34 eGFR 45 Patient has no baseline chronic kidney disease Likely secondary to septic shock We will continue with aggressive volume replacement Recheck BMP in am (6) Elevated troponin Current Visit: Yes Status: Acute Assessment and plan: Elevated troponin, 0.08 Secondary to demand ischemia in setting of septic shock (7) Dementia Current Visit: No Status: Chronic Assessment and plan: Poor mentation, unable to provide self care Qualifiers: Dementia type: unspecified type Dementia behavioral disturbance: without behavioral disturbance Qualified Code(s): F03.90 - Unspecified dementia without behavioral disturbance (8) DVT prophylaxis Current Visit: No Status: Acute Assessment and plan: SQ Heparin (9) Counseling regarding advanced care planning and goals of care Current Visit: Yes Status: Acute Assessment and plan: Patient has septic shock with severe volume depletion and intermittent hypotension. The patient's daughter is a retired critical care nurse, and states that she would like the patient to be DNR-CC, and refuses and advanced care including central lines, pressors, intubation. She requests that the patient receive aggressive antibiotics, fluid rescusitation, and labs to monitor progress, however she does not want anything more. I explained that this would be most consistent with a code status of [id number], however the patient's daughter was insistent and commented that she did not know where the "breakdown of communication" was. The code status was changed according to her wishes, and fluids were changed to exclude potassium as per her wishes. - Time Spent With Patient Total time spent is greater than 50% in coordination of care (as documented) at patient's floor/unit and/or counseling patient: Caesar Hutchinson - Last Filed: 06/17/18 04:04> Date of Encounter: 06/17/18 Internal Medicine - H&P: HPI History of present illness: Ms. Mccain is a 88 year old female All Systems PM: A 10-system review of systems was performed and is negative for pertinent findings except as documented above in the HPI. - Constitutional Vitals: Temp Pulse Resp BP Pulse Ox 99.0 F 106 19 103/60 100 06/17/18 03:05 06/17/18 03:05 06/17/18 03:05 06/17/18 03:05 06/17/18 03:05 Internal Med - H&P Results - Labs CBC & Chem 7: 06/17/18 03:16 06/17/18 03:16 Labs: Short CBC 06/17/18 Range/Units 03:16 WBC 34.7 H* (4.3-11.1) K/mcL Hgb 9.4 L D (11.5-15.4) g/dL Hct 31.5 L (35.3-44.9) % Plt Count 244 (140-400) K/mcL BMP 06/17/18 03:16 Sodium 148 H Potassium 3.5 Chloride 115 H Carbon Dioxide 15 L BUN 22 Creatinine 1.14 Glucose 148 H Calcium 8.4 L Liver Function 06/17/18 Range/Units 03:16 Total Bilirubin 0.4 (0.3-1.0) mg/dL AST 18 (13-39) Units/L ALT 10 (7-52) Units/L Alkaline Phosphatase 63 (34-104) Units/L Albumin 2.6 L (3.5-5.7) g/dL - ABG Interpretation ABG results: 06/17/18 03:32 VBG pH 7.21 L VBG pCO2 41 VBG pO2 114 H VBG HCO3 17 L - Assessment and plan (1) Hypernatremia Current Visit: Yes Status: Acute (2) Dementia Current Visit: No Status: Chronic Qualifiers: Dementia type: unspecified type Dementia behavioral disturbance: without behavioral disturbance Qualified Code(s): F03.90 - Unspecified dementia without behavioral disturbance (3) DVT prophylaxis Current Visit: No Status: Acute (4) Counseling regarding advanced care planning and goals of care Current Visit: Yes Status: Acute (5) UTI (urinary tract infection) Current Visit: Yes Status: Acute Qualifiers: Urinary tract infection type: acute cystitis Hematuria presence: without hematuria Qualified Code(s): N30.00 - Acute cystitis without hematuria (6) Elevated troponin Current Visit: Yes Status: Acute (7) Acute respiratory failure Current Visit: Yes Status: Acute Qualifiers: Respiratory failure complication: hypoxia Qualified Code(s): J96.01 - Acute respiratory failure with hypoxia (8) JEANNIE (acute kidney injury) Current Visit: Yes Status: Acute (9) Septic shock Current Visit: Yes Status: Acute - Time Spent With Patient Total time spent is greater than 50% in coordination of care (as documented) at patient's floor/unit and/or counseling patient: Greater than 35 minutes - Attending Attestation Vielka Cuca Mccain is an 88 year old woman with advanced dementia who resides in a [facility] who on review of old records is seen to have been admitted previously for sepsis with UTI and bacteremia. She is brought in now for respiratory distress and fever as reported from the [place]. She has been non-verbal which apparently is baseline. She was on nonrebreather and subsequently escalated to Bipap which she did not tolerate so currently is on face mask and saturating well. She was febrile to 103.6F, tachycardic and dyspneic. CXR done and reviewed independently by me did not reveal any focal consolidations. Lab work is remarkable for lactate of 9.3, troponin 0.8, Na 149, Cr 1.34, WBC 34.5 w/ 14% bands. She was started on IVF, vancomyin, piptazo and levofloxacin. APAP suppository administered. Information provided by family: [place] resident, prior smoking history, non- contributory FHx. Unable to obtain ROS as patient is non-verbal. The patient is seen lying left lateral decubitus, cachectic appearing AA F, dry mucous membranes, flat neck veins, diminished thoracic expansion with reduced breath sounds bilaterally, tachycardic but regular, flat abdomen with no apparent tenderness elicited, emaciated and contracted extremities w/o edema, left heel ulcer wrapped in clean, dry gauze, stage II sacral decubitus 3cm diameter ulcer noted, unable to assess orientation due to non-verbal state. Will admit for severe sepsis evidenced by fever, tachycardia, leukocytosis and lactic acidemia possibly secondary to UTI given the presence of LE/nitrites and a very alkaline urine pH. CXR not revealing for pneumonia however a repeat may be necessary after fluid resuscitation. Other problems include acute kidney injury stage 3, clinical dehydration and hypernatremia. Troponin elevation likely from demand in the setting of septic state and not reflective of true type 1 CA. Taking into account old records reviewed with ID/Sens of prior organisms, advise to discontinue levofloxacin/piptazo. Start meropenem 1gr q12hrs based on current CrCl. May continue vancomycin for these first 24-48hrs pending culture results and evolution. Replete volume with isotonic fluids after which maintenance hypotonic fluids should be started for the hypernatremia. It is seen that she has a tendency for high sodium likely due to poor oral intake and inadequate volume, once going as high as 185. Follow urine and blood cultures. Monitor for respiratory symptoms. Fall/aspiration precautions. POA/legal guardian/daughter expressed not wanting invasive procedures (central lines, intubation, resuscitation, surgical interventions). Continue local wound care and off-loading pressure points. The patient is critically ill with a guarded prognosis. CCT 60 mins. MEGAN ABURTO.
[2018-06-17] MEDS ORDERED: Ringers Solution, Lactated 1,000 ML IVC ONE (02:23)
[2018-06-17] MEDS ORDERED: Potassium Chloride 40 MEQ in D5% in 0.45% NACL 1,000 ML IVC SCH (02:30)
[2018-06-17] MEDS ORDERED: Loratadine 10 MG TABLET PO PRN (03:03)
[2018-06-17] MEDS ORDERED: MORPHINE SUL Oral CONC 10 MG/0.5 ML ORAL.SYG SL PRN (03:03)
[2018-06-17] MEDS ORDERED: Acetaminophen 650 MG RECTAL SUPP RC PRN (03:03)
[2018-06-17 03:33] LABS: Hematocrit 31.5 % (35.3-44.9); Hemoglobin 9.4 g/dL (11.5-15.4); Mean Corpuscular HGB Conc 29.8 g/dL (31.6-35.5); Mean Corpuscular Hemoglobin 20.5 pg (28.0-33.3); Mean Corpuscular Volume 68.8 fL (83.0-100.0); Mean Platelet Volume 10.6 fL (9.4-12.4); Nucleated Red Blood Cells 0.1 /100 WBC (0); Platelet Count 244 K/mcL (140-400); Red Blood Count 4.58 M/mcL (3.82-4.97); Red Cell Distribution Width 17.6 % (11.5-14.5)
[2018-06-17 03:37] LABS: VBG HCO3 17 mEq/L (21-27); VBG PCO2 41 mmHg (41-51); VBG PH 7.21 pH Units (7.32-7.42); VBG PO2 114 mmHg (25-50)
[2018-06-17 03:45] LABS: INR 1.5; Prothrombin Time 16.6 Seconds (9.4-12.1)
[2018-06-17] MEDS ORDERED: D5% in 0.45% NACL 1,000 ML IVC SCH (03:45)
[2018-06-17] MEDS: Atropine 1% Opth Drops 100 DROP/5 ML BOTTLE SL SCH ×5 (03:53→20:35)
[2018-06-17 03:56] LABS: Albumin 2.6 g/dL (3.5-5.7); Bilirubin,Total 0.4 mg/dL (0.3-1.0); Calcium 8.4 mg/dL (8.6-10.3); Globulin 2.7 g/dL (2.4-3.5); Magnesium 1.6 mg/dL (1.6-2.6); Phosphorous 3.5 mg/dL (2.7-4.5); Potassium 3.5 mEq/L (3.5-5.1); Total Protein 5.3 g/dL (6.4-8.9)
[2018-06-17] MEDS ORDERED: Potassium Chloride Elixir 20 MEQ/15 ML UDC GTUBE ONE (04:00)
[2018-06-17] MEDS: *HR* Heparin 5,000 UNIT/ML VIAL SQ SCH ×3 (04:07→21:35)
[2018-06-17 04:09] LABS: Large Platelets Present (Not Present); Lymphocytes # 0.7 K/mcL (0.6-4.6); Monocytes # 1.4 K/mcL (0.0-1.3); Neutrophils # 31.2 K/mcL (1.6-8.9); Platelet Estimate Normal (Normal); Polychromasia 1+ (Not Present); Toxic Vacuolation Present (Not Present)
[2018-06-17 04:11] LABS: Anisocytosis 1+ (Not Present); Poikilocytosis 1+ (Not Present)
--- NOTE | 2018-06-17 04:51 | Sepsis Event Note ---
Sepsis Reassessment Note - Evaluation Sepsis Screen: Sepsis Risk Current Stage of Sepsis: severe sepsis Possible Source of Sepsis: genitourinary - Focused Exam Date of Encounter: 06/17/18 Time of Encounter: 04:50 Vital Signs: Vital Signs Temp Pulse Resp BP Pulse Ox 06/17/18 03:05 99.0 F 106 19 103/60 100 06/17/18 02:14 99.2 F 107 26 109/88 100 Respiratory Exam: Present: CTA bilaterally Cardiovascular Exam: Present: RRR Capillary Refill: < 2 seconds Peripheral Pulse Strength: 1+ faint Peripheral Pulse Location: Pedal Skin Exam: normal turgor
--- NOTE | 2018-06-17 06:47 | Emergency Department Note ---
Disposition Clinical Impression: HCAP (healthcare-associated pneumonia), Respiratory distress, Elevated troponin , JEANNIE (acute kidney injury) UTI (urinary tract infection) Qualifiers: Urinary tract infection type: acute cystitis Hematuria presence: without hematuria Qualified Code(s): N30.00 - Acute cystitis without hematuria Sepsis Qualifiers: Sepsis type: sepsis due to unspecified organism Qualified Code(s): A41.9 - Sepsis, unspecified organism Disposition: Admitted As Inpatient Condition: Fair General Adult HPI - General Chief complaint: ED Shortness of Breath/Dyspnea Stated complaint: CHASIDY Time Seen by Provider: 06/16/18 23:32 Source: EMS Limitations: altered mental status Nursing Notes Reviewed: Yes Vital Signs Reviewed: Yes - History of Present Illness Pain Scale: 0 - Related Data Home Medications Medication Instructions Recorded Confirmed Acetaminophen [Tylenol 650mg SUPP] 650 mg RC Q6H PRN 03/03/18 06/07/18 Albuterol Neb [Proventil Neb] 2.5 mg IH Q2H PRN 03/03/18 06/07/18 Aspirin Enteric Coated [Aspirin EC] 81 mg PO DAILY 03/03/18 06/07/18 Atropine 1% Opth Drops 1 drop SL Q4H 03/03/18 06/07/18 Donepezil HCl [Aricept] 10 mg PO DAILY 03/03/18 06/07/18 Ferrous Sulfate [Iron] 325 mg PO DAILY 03/03/18 06/07/18 Loratadine [Allergy Relief] 10 mg PO DAILY PRN 03/03/18 06/07/18 MORPHINE SUL Oral CONC [Roxanol 0.25 ml SL Q4H PRN 03/03/18 06/07/18 Oral Conc] Sennosides [Senna] 8.6 mg PO DAILY 03/03/18 06/07/18 Sucralfate [Carafate] 1 gm PO BID 03/03/18 06/07/18 Previous Rx's Medication Instructions Recorded amLODIPine [Norvasc] 5 mg PO DAILY tablet 03/09/18 Allergies Allergy/AdvReac Type Severity Reaction Status Date / Time No Known Allergies Allergy Verified 03/03/18 07:40 Constitutional: Reports: fever Respiratory: Reports: dyspnea Genitourinary: Reports: other (Difference in color of urine) Hematological/Lymphatic: Denies: easy bleeding Past Medical History - Past Medical History Medical history: Reports: dementia, hyperlipidemia Surgical history: Reports: no surgical history Psychiatric history: Reports: anxiety, depression BUSINESS LIBRARIAN history: Reports: non-contributory - Social History Smoking Status: Unknown if ever smoked Smokeless Tobacco Status: No Alcohol use: Reports: none Drug use: Reports: none Physical Exam - General Limitations: altered mental status General appearance: in distress (Respiratory) Course Vital Signs Temperature 103.6 F H 06/16/18 23:26 Pulse Rate 140 06/16/18 23:26 Respiratory Rate 28 06/16/18 23:26 Blood Pressure 151/116 06/16/18 23:26 O2 Sat by Pulse Oximetry 100 06/16/18 23:26 Temperature 99.0 F 06/17/18 03:05 Pulse Rate 106 06/17/18 03:05 Respiratory Rate 19 06/17/18 03:05 Blood Pressure 103/60 06/17/18 03:05 O2 Sat by Pulse Oximetry 100 06/17/18 03:05 Oxygen Delivery Oxygen Delivery Oximizer Medical Decision Making - Medical Records Medical records reviewed: Yes I reviewed the patient's medical records. - Lab Data Lab results reviewed: Yes I reviewed the patient's lab results. Result diagrams: 06/17/18 03:16 06/17/18 03:16 Lab Results 06/16/18 06/16/18 06/16/18 Range/Units 23:49 23:55 23:55 WBC 34.5 H* D (4.3-11.1) K/mcL RBC 5.38 H (3.82-4.97) M/mcL Hgb 11.1 L (11.5-15.4) g/dL Hct 36.6 (35.3-44.9) % MCV 68.0 L (83.0-100.0) fL MCH 20.6 L (28.0-33.3) pg MCHC 30.3 L (31.6-35.5) g/dL RDW 18.4 H (11.5-14.5) % Plt Count 303 (140-400) K/mcL MPV 9.7 (9.4-12.4) fL Seg Neutrophils % 80.0 % Band Neutrophils % 14.0 H (0-4) % Lymphocytes % 2.0 % Monocytes % 2.0 % Metamyelocytes % 2.0 H (0) % Neutrophils # 32.4 H (1.6-8.9) K/mcL Lymphocytes # 0.7 (0.6-4.6) K/mcL Monocytes # 0.7 (0.0-1.3) K/mcL Nucleated RBCs/100 WBC 0.1 H (0) /100 WBC Platelet Estimate Normal (Normal) Large Platelets Present A (Not Present) Anisocytosis 1+ A (Not Present) Microcytosis Present A (Not Present) Sodium 149 H (136-145) mEq/L Potassium 3.7 (3.5-5.1) mEq/L Chloride 111 H (98-107) mEq/L Carbon Dioxide 21 L (23-29) mEq/L BUN 25 H (8-23) mg/dL Creatinine 1.34 H (0.60-1.20) mg/dL Est GFR ( Amer) 45 L (> 60) Est GFR (Non-Af Amer) 37 L (> 60) BUN/Creatinine Ratio 19 (6-26) Glucose 117 H (70-105) mg/dL Calculated Osmolality 313 H (280-300) Lactic Acid (0.5-2.2) mmol/L Calcium 9.5 (8.6-10.3) mg/dL Troponin I 0.08 H* (< 0.04) ng/mL B-Natriuretic Peptide (Less than 100) pg/mL Urine Color Yellow (Yellow) Urine Clarity Clear (Clear) Urine pH >=9.0 H (5.0-8.0) pH Units Ur Specific [place] 1.010 (1.010-1.025) Urine Protein 100 H (Neg-Trace) mg/dL Urine Glucose (UA) Normal (Normal) mg/dL Urine Ketones Negative (Negative) mg/dL Urine Blood Negative (Negative) Urine Nitrite Positive A (Negative) Urine Bilirubin Negative (Negative) Urine Urobilinogen Normal (Normal) mg/dL Ur Leukocyte Esterase Moderate H (Negative) Urine Microscopic RBC 0-3 (0-3) per hpf Urine Microscopic WBC 3-5 H (0-3) per hpf Ur Squamous Epith Cells Few (None-Few) per lpf Triple Phos Crystals Present Urine Bacteria Many H (None-Few) per hpf Ur Culture Indicated? YES A (NO) 06/16/18 06/16/18 Range/Units 23:55 23:55 WBC (4.3-11.1) K/mcL RBC (3.82-4.97) M/mcL Hgb (11.5-15.4) g/dL Hct (35.3-44.9) % MCV (83.0-100.0) fL MCH (28.0-33.3) pg MCHC (31.6-35.5) g/dL RDW (11.5-14.5) % Plt Count (140-400) K/mcL MPV (9.4-12.4) fL Seg Neutrophils % % Band Neutrophils % (0-4) % Lymphocytes % % Monocytes % % Metamyelocytes % (0) % Neutrophils # (1.6-8.9) K/mcL Lymphocytes # (0.6-4.6) K/mcL Monocytes # (0.0-1.3) K/mcL Nucleated RBCs/100 WBC (0) /100 WBC Platelet Estimate (Normal) Large Platelets (Not Present) Anisocytosis (Not Present) Microcytosis (Not Present) Sodium (136-145) mEq/L Potassium (3.5-5.1) mEq/L Chloride (98-107) mEq/L Carbon Dioxide (23-29) mEq/L BUN (8-23) mg/dL Creatinine (0.60-1.20) mg/dL Est GFR ( Amer) (> 60) Est GFR (Non-Af Amer) (> 60) BUN/Creatinine Ratio (6-26) Glucose (70-105) mg/dL Calculated Osmolality (280-300) Lactic Acid 9.3 H* (0.5-2.2) mmol/L Calcium (8.6-10.3) mg/dL Troponin I (< 0.04) ng/mL B-Natriuretic Peptide 372 H (Less than 100) pg/mL Urine Color (Yellow) Urine Clarity (Clear) Urine pH (5.0-8.0) pH Units Ur Specific [place] (1.010-1.025) Urine Protein (Neg-Trace) mg/dL Urine Glucose (UA) (Normal) mg/dL Urine Ketones (Negative) mg/dL Urine Blood (Negative) Urine Nitrite (Negative) Urine Bilirubin (Negative) Urine Urobilinogen (Normal) mg/dL Ur Leukocyte Esterase (Negative) Urine Microscopic RBC (0-3) per hpf Urine Microscopic WBC (0-3) per hpf Ur Squamous Epith Cells (None-Few) per lpf Triple Phos Crystals Urine Bacteria (None-Few) per hpf Ur Culture Indicated? (NO) - Radiology Data Radiology results reviewed: Yes I reviewed the patient's radiology results. Chest X-Ray 06/16/18 23:32 IMPRESSION: No acute process. D/ / Donavon Arellano MD / Donavon Arellano MD Interpreting Provider: Donavon Arellano MD - EKG Data EKG #1 EKG attestation: Yes I reviewed and interpreted this EKG. EKG results narrative: EKG showed a sinus tachycardia with ventricular rate of 142. Minimal ST segment depression, likely rate related. Critical Care Time Critical Care Time: Yes Total Critical Care Time: 40 Attestation: Critical care performed: Time is exclusive of separately billable procedures. Time includes: direct patient care, patient reassessment, coordination of patient care, interpretation of data (laboratory data, radiology data, and respiratory data), review of patient's medical records, medical consultation and documentation of patient care. Procedures included in critical care time: Procedures excluded from critical care time: Attestation Statement - Attestation Attestation: I, Steven Jenkins MD, personally evaluated this patient and discussed their management with the resident physician. I reviewed the resident's note and agree with the documented findings, medical decision making, and plan of care. 88-year-old female from a local intermediate who is DNR comfort care presents to the emergency department by EMS for respiratory distress. Patient has dementia and unable to provide any History or review of systems. History obtained from EMS. EMS also reports at the intermediate noted that she has had no urine output today. They are unsure when she last had urine output. On arrival patient in moderate respiratory distress with gurgling breath sounds. Decreased responsiveness and remaining to the left side. On examination patient is a cachectic elderly female in moderate respiratory distress. No diaphoresis. She has coarse upper airway congestion especially in the left upper lung. Right lung is fairly clear. No wheezes noted. Heart tachycardic and regular. Patient hot to touch and febrile on arrival. Abdomen soft with present bowel sounds. No pedal edema. Labs reviewed. Marked leukocytosis with WBC of 34 with 80% segs and 14% bands. Lactic acid 9.1. Chest x-ray negative. UTI. Patient had deep suctioning per respiratory therapy with marked improvement in her coarse upper airway congestion. She meets severe sepsis criteria and received 1500 mL saline bolus she did have significant improvement in her clinical condition with this treatment. She was placed on BiPAP but was unable to tolerate it so she was then placed on an oxygen mask at 15 L and maintained an oxygen saturation in the upper 90s. This was decreased to 10 L and she continued to maintain good oxygen saturation. Cultures obtained and IV antibiotics initiated. The hospitalist, Dr. Moise, was consulted and accepted admission of the patient.
[2018-06-17] MEDS ORDERED: Isovue-370 500 ML INFUS..BTL IV ONE ×2 (08:54→11:07)
--- NOTE | 2018-06-17 09:06 | Internal Med Progress Note ---
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 Daughter is critical care nurse. Similar admission March 2018. 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 She went to wound care for heel yesterday for debridement and was relatively at baseline, labs with mild leukocytosis but significant hypernatremia. Her MS declined since debridgement and developed respiratory distress. Family brought her to ED for eval and she was found to be in septic shock, possible aspiration pneumonia. Patient is non-verbal and altered. Daughter at bedside. She reports that the patient's baseline mental status is unchanged. Confirmed HPI. - Exam Vitals: Temp Pulse Resp BP Pulse Ox 99.0 F 106 20 124/86 100 06/17/18 07:32 06/17/18 07:32 06/17/18 07:32 06/17/18 07:32 06/17/18 07:32 Exam: Gen: Vitals noted. Frail-appearing, does not respond to commands. HEENT: Normocephalic, atraumatic. Dry mucous membranes. Neck: Supple. No adenopathy. Cardiac: RRR, no murmur, +S1/S2 Pulmonary: CTA bilaterally, no wheezes, rales or rhonchi, equal chest expansion Abdomen: soft, nontender, no guarding Back: Nontender throughout. MSK: ROM intact, no joint swelling noted Extremities: no BLE edema, nontender calf, no cyanosis or clubbing. There is an ulcer that is wrapped on the left heel. Neuro: Patient is alert, non-communicative Psych: Does not speak or follow commands - Assessment and Plan (1) Severe sepsis Current Visit: Yes Status: Acute Assessment and Plan: Patient is DNR-CC as confirmed with daughter at bedside, POA. Daughter states that she is near baseline mental status On admission, leukocytosis 34.5 with 14% bands, fever 103.6F, tachycardic, RR 30. CT abdomen without evidence of pyelonephritis. There is nonobstructing left nephrolithiasis, cholelithiasis with prominent gallbladder. No cholecystic stranding to indicate cholecystitis. Repeat lactic acid with improvement after 2.5L fluids and antibiotics: 4.4/8.8/ 9.3 Severe sepsis likely secondary to UTI, presumed ESBL infections. 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 BCx pending. Will down-escalate antibiotics as appropriate Continue with current antibiotic therapy and management. (2) UTI (urinary tract infection) Current Visit: Yes Status: Acute Assessment and plan: Acute complicated cystitis, presumed ESBL E. Coli Patient has history of multiple ESBL infections Urinanalysis is positive for nitrites and leukocyte esterase Continue meropenem and vancomycin as above Exchange morin catheter Qualifiers: Urinary tract infection type: acute cystitis Hematuria presence: without hematuria Qualified Code(s): N30.00 - Acute cystitis without hematuria (3) Acute respiratory failure Current Visit: Yes Status: Acute Assessment and plan: Acute hypoxic respiratory failure Likely secondary to sepsis, tachycardia and increased demand No evidence of pneumonia at this time either clinically or on imaging We will continue to monitor, Provide supplemental O2 Qualifiers: Respiratory failure complication: hypoxia Qualified Code(s): J96.01 - Acute respiratory failure with hypoxia (4) Hypernatremia Current Visit: Yes Status: Acute Assessment and plan: Hypernatremia, appears chronic Presents with sodium 149 which was elevated over past two days on labs as well Patient does get free water pushes per PEG at correction however daughter is concerned that she has not been getting them Appears to be improving. Continue with D5 1/2 maintenance fluids. (5) JEANNIE (acute kidney injury) Current Visit: Yes Status: Acute Assessment and plan: Improved. Presented with acute kidney injury, Serum creatinine 1.34 eGFR 45 Patient has no baseline chronic kidney disease Likely secondary to septic shock continue with maintanance fluids. Recheck BMP in am (6) Elevated troponin Current Visit: Yes Status: Acute Assessment and plan: Elevated troponin, 0.08 Secondary to demand ischemia in setting of septic shock (7) Dementia Current Visit: No Status: Chronic Assessment and plan: Poor mentation, unable to provide self care Qualifiers: Dementia type: unspecified type Dementia behavioral disturbance: without behavioral disturbance Qualified Code(s): F03.90 - Unspecified dementia without behavioral disturbance (8) DVT prophylaxis Current Visit: No Status: Acute Assessment and plan: SQ Heparin (9) Counseling regarding advanced care planning and goals of care Current Visit: Yes Status: Acute Assessment and plan: Patient has septic shock with severe volume depletion and intermittent hypotension. The patient's daughter is a retired critical care nurse, and states that she would like the patient to be DNR-CC, and refuses and advanced care including central lines, pressors, intubation. She requests that the patient receive aggressive antibiotics, fluid rescusitation, and labs to monitor progress, however she does not want anything more. Does not want intubation. Code status changed to DNR-CC per POA request. Palliative at bedside. Patient's daughter declines hospice at this time. DVT Prophylaxis: Heparin SubQ - Time Spent with Patient Total time spent is greater than 50% in coordination of care (as documented) at patient's floor/unit and/or counseling patient: Internal Medicine: Result - Labs CBC & Chem 7: 06/17/18 03:16 06/17/18 09:19 Labs: Short CBC 06/17/18 Range/Units 03:16 WBC 34.7 H* (4.3-11.1) K/mcL Hgb 9.4 L D (11.5-15.4) g/dL Hct 31.5 L (35.3-44.9) % Plt Count 244 (140-400) K/mcL Neutrophils # 31.2 H (1.6-8.9) K/mcL BMP 06/17/18 03:16 Sodium 148 H Potassium 3.5 Chloride 115 H Carbon Dioxide 15 L BUN 22 Creatinine 1.14 Glucose 148 H Calcium 8.4 L Liver Function 06/17/18 Range/Units 03:16 Total Bilirubin 0.4 (0.3-1.0) mg/dL AST 18 (13-39) Units/L ALT 10 (7-52) Units/L Alkaline Phosphatase 63 (34-104) Units/L Albumin 2.6 L (3.5-5.7) g/dL - ABG Interpretation ABG results: PT/INR, D-dimer PT 16.6 Seconds (9.4-12.1) H 06/17/18 03:16 Consult Discharge Plan - Plan Referrals: Wade Metcalf MD [Primary Care Provider] - <Ngoc Sanchez - Last Filed: 06/17/18 16:47> Hospitalist Progress Note - Encounter Date of Encounter: 06/17/18 - Exam Vitals: Temp Pulse Resp BP Pulse Ox 97.6 F 86 18 100/58 100 06/17/18 16:23 06/17/18 16:23 06/17/18 16:23 06/17/18 16:23 06/17/18 16:23 - Assessment and Plan (1) Hypernatremia Current Visit: Yes Status: Acute (2) Dementia Current Visit: No Status: Chronic (3) DVT prophylaxis Current Visit: No Status: Acute (4) Counseling regarding advanced care planning and goals of care Current Visit: Yes Status: Acute (5) UTI (urinary tract infection) Current Visit: Yes Status: Acute (6) Elevated troponin Current Visit: Yes Status: Acute (7) Acute respiratory failure Current Visit: Yes Status: Acute (8) JEANNIE (acute kidney injury) Current Visit: Yes Status: Acute (9) Septic shock Current Visit: Yes Status: Acute - Time Spent with Patient Total time spent is greater than 50% in coordination of care (as documented) at patient's floor/unit and/or counseling patient: Internal Medicine: Result - Labs CBC & Chem 7: 06/17/18 03:16 06/17/18 09:19 Labs: Short CBC 06/17/18 Range/Units 03:16 WBC 34.7 H* (4.3-11.1) K/mcL Hgb 9.4 L D (11.5-15.4) g/dL Hct 31.5 L (35.3-44.9) % Plt Count 244 (140-400) K/mcL Neutrophils # 31.2 H (1.6-8.9) K/mcL BMP 06/17/18 06/17/18 03:16 09:19 Sodium 148 H 146 H Potassium 3.5 3.6 Chloride 115 H 117 H Carbon Dioxide 15 L 19 L BUN 22 21 Creatinine 1.14 0.89 Glucose 148 H 171 H Calcium 8.4 L 8.6 Cardiac Enzymes 06/17/18 Range/Units 09:19 Troponin I 0.07 H* (< 0.04) ng/mL Liver Function 06/17/18 Range/Units 03:16 Total Bilirubin 0.4 (0.3-1.0) mg/dL AST 18 (13-39) Units/L ALT 10 (7-52) Units/L Alkaline Phosphatase 63 (34-104) Units/L Albumin 2.6 L (3.5-5.7) g/dL - ABG Interpretation ABG results: ABG ABG pH 7.42 pH Units (7.32-7.45) 06/17/18 09:58 ABG pCO2 34 mmHg (35-45) L 06/17/18 09:58 ABG pO2 417 mmHg (85-104) H 06/17/18 09:58 ABG O2 Saturation 100 % (95-98) H 06/17/18 09:58 PT/INR, D-dimer PT 16.6 Seconds (9.4-12.1) H 06/17/18 03:16 - Impressions Impressions Abdomen/Pelvis CT 06/17/18 11:07 IMPRESSION: 1. Wall thickening of the urinary bladder compatible with cystitis. No evidence of pyelonephritis 2. Nonobstructing left nephrolithiasis 3. Cholelithiasis, with prominent gallbladder. No cholecystic stranding to indicate cholecystitis. Correlate with any symptoms referable to the right upper quadrant D/ / Sonny Pak MD / Sonny Pak MD Interpreting Provider: Sonny Pak MD - Attending Attestation Seen and assessed. Agree with plan per resident Plan severe Sepsis. Continue IV fluids and antibiotics. Follow up cultures <Ngoc Sanchez - Last Filed: 06/17/18 16:47> (2) Dementia Qualifiers: Dementia type: unspecified type Dementia behavioral disturbance: without behavioral disturbance Qualified Code(s): F03.90 - Unspecified dementia without behavioral disturbance (5) UTI (urinary tract infection) Qualifiers: Urinary tract infection type: acute cystitis Hematuria presence: without hematuria Qualified Code(s): N30.00 - Acute cystitis without hematuria (7) Acute respiratory failure Qualifiers: Respiratory failure complication: hypoxia Qualified Code(s): J96.01 - Acute respiratory failure with hypoxia
[2018-06-17 09:51] LABS: BUN/Creatinine Ratio 24 (6-26); Blood Urea Nitrogen 21 mg/dL (8-23); Calcium 8.6 mg/dL (8.6-10.3); Carbon Dioxide 19 mEq/L (23-29); Chloride 117 mEq/L (98-107); Glucose 171 mg/dL (70-105); Osmolality,Calculated 309 (280-300); Potassium 3.6 mEq/L (3.5-5.1); Sodium 146 mEq/L (136-145); eGFR For Non-African Americans 60 (> 60)
[2018-06-17 09:55] LABS: Troponin I 0.07 ng/mL (< 0.04)
[2018-06-17 10:03] LABS: ABG Base Excess -2 mEq/L (-2 to 3); ABG HCO3 22 mEq/L (21-27); ABG Oxygen Saturation 100 % (95-98); ABG PCO2 34 mmHg (35-45); ABG PH 7.42 pH Units (7.32-7.45); ABG PO2 417 mmHg (85-104); ABG TCO2 23 mEq/L (20-26)
[2018-06-17] MEDS: Aspirin Enteric Coated 81 MG Tablet PO SCH (10:06)
[2018-06-17] MEDS: Sucralfate 1 GM TABLET PO SCH ×2 (10:06→15:28)
[2018-06-17] MEDS: Sennosides 8.6 MG TABLET PO SCH (10:06)
[2018-06-17] MEDS: Meropenem 1,000 MG in Water for inj. (sterile) 20 ML 10 ML IVP SCH ×2 (10:07→20:31)
[2018-06-17] MEDS: D5% in 0.45% NACL 1,000 ML IVC SCH ×2 (10:11→15:30)
--- NOTE | 2018-06-17 11:55 | Palliative - Consult Note ---
Date of Encounter: 06/17/18 Time of Encounter: 11:30 - Assessment and Plan (1) Generalized pain Current Visit: Yes Status: Acute Assessment and plan: She currently has acetaminophen ordered as well as Roxanol. Daughter salvador she does not want her mother receiving Roxanol, and states she has no indication for it, and she does not believe her pain level is that great. She is ok with Tylenol as well as weaker opioid to assist if needed. She states that if her mother actively dying and needs Morphine for comfort, then she would allow this. Will continue acetaminophen and add low dose Tramadol for more significant pain if needed. (2) Goals of care, counseling/discussion Current Visit: Yes Status: Acute Assessment and plan: Daughter Siria Collins is pt legal guardian and this paperwork is present on medical record. Patient is already DNRCC and state form has been completed. Daughter does desire conservative treatment with fluids/atb as already documented, does not want any invasive testing, surgery, central lines, vasopressor therapy. However, Siria does not desire hospice care at this time. States that she did have hospice with her father. She wants to give her mother a chance to recover from current infection. She states that she wants to be in control of her mother's medications, and hospice gives too much pain medication at times. 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 She also desires to begin artificial nutrition, as she states that her intake has greatly declined, and ECF staff do not assist with her feeding as they should. She states her decubitus are a result of that. She resides in [place], but has kept her mother in ECF here so local brother that does not drive can visit and spend time with her. Siria feels very strongly regarding this above. I will f/u tomorrow. (3) Severe sepsis Current Visit: No Status: Acute (4) Dementia Current Visit: No Status: Chronic Qualifiers: Dementia type: unspecified type Dementia behavioral disturbance: without behavioral disturbance Qualified Code(s): F03.90 - Unspecified dementia without behavioral disturbance (5) Protein-calorie malnutrition, severe Current Visit: No Status: Chronic Palliative-CN HPI - Data of Consult Requesting Physician: Denton Moise MD Primary Care Provider: Wade Metcalf MD - Consult Narrative History of present illness: Ms. Mccain is a 88 year old female who resides at [facility] was transported to hospital after found to have fever, hypoxia, and possible UTI. She was admitted to hospital with severe sepsis with leukocytosis and Lactic acid of 9.3. Temp was 103.6 on admission as well. Patient has history of end stage dementia, hyperlipidemia, hypernatremia. She has documented stage 3 pressure ulcer on coccyx, and left heel wound that has been treated at wound care clinic. She has PEG that has not been used lately, and she is on pureed diet at [facility]. Daughter Siria Collins is her guardian. Siria is registered nurse with ICU experience, and currently working on her doctorate degree. Patient is a DNRCC and state form present on chart. She is currently being treated with IV antibiotics/fluids. She has recent history of ESBL bacteremia. 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 Upon my visit today, pt is restiing quietly and daughter is at bedside. Lactic acid level decreased to 4.4 today, WBC is 34.7. Afebrile this am and blood pressure stable. She is being taken for CT scan. Palliative was consulted to discuss goals of care/possible hospice with daughter. CC: Denton Moise MD - Time Spent with Patient Time: Total time spent is greater than 50% in coordination of care (as documented) at patient's floor/unit and/or counseling patient: Greater than 35 minutes (45 min spent in coordination of care and counseling) Past Med Surg Social Fam HX - Past Medical History Medical history: dementia, hyperlipidemia Additional medical history: hypernatremia, AMS, alzheimers Psychiatric history: anxiety, depression - Past Surgical History Surgical History: no surgical history Additional surgical history: Tubal ligation. AAA repair. Femoral Graft left. Peg Tube - Social History Smoking Status: Unknown if ever smoked Smokeless Tobacco Status: No Alcohol use: none Drug use: none Medications and Allergies Acetaminophen [Tylenol 650mg SUPP] 650 mg RC Q6H PRN 03/03/18 [History] Albuterol Neb [Proventil Neb] 2.5 mg IH Q2H PRN 03/03/18 [History] Aspirin Enteric Coated [Aspirin EC] 81 mg PO DAILY 03/03/18 [History] Atropine 1% Opth Drops 1 drop SL Q4H 03/03/18 [History] Donepezil HCl [Aricept] 10 mg PO DAILY 03/03/18 [History] Ferrous Sulfate [Iron] 325 mg PO DAILY 03/03/18 [History] Loratadine [Allergy Relief] 10 mg PO DAILY PRN 03/03/18 [History] MORPHINE SUL Oral CONC [Roxanol Oral Conc] 0.25 ml SL Q4H PRN 03/03/18 [History] Sennosides [Senna] 8.6 mg PO DAILY 03/03/18 [History] Sucralfate [Carafate] 1 gm PO BID 03/03/18 [History] amLODIPine [Norvasc] 5 mg PO DAILY tablet 03/09/18 [Rx] 3 Allergy/AdvReac Type Severity Reaction Status Date / Time No Known Allergies Allergy Verified 03/03/18 07:40 ROS unobtainable: due to mental status Palliative Care-Exam - Constitutional Vitals: Temp Pulse Resp BP Pulse Ox 98.0 F 104 20 109/60 100 06/17/18 10:54 06/17/18 10:54 06/17/18 10:54 06/17/18 10:54 06/17/18 10:54 General appearance: Present: no acute distress, thin - Head Head Exam: Present: normal inspection, normocephalic - Respiratory Respiratory exam: Present: decreased breath sounds, CTAB - Cardiovascular Cardiovascular exam: Present: +S1, +S2, tachycardia - GI/Abdominal Exam GI/Abdominal exam: Present: diminished bowel sounds, soft additional comments: PEG intact and clamped at present - Catheter Type: Urethral (Morin) - Neurological Exam Additional comments: Patient with eyes open, no verbal response. Does not follow commands - Skin Skin exam: Present: dry, warm Additional comments: Dressing to heel D/I. allevyn to coccyx intact. Internal Medicine - CN: Reslt - Labs CBC & Chem 7: 06/17/18 03:16 06/17/18 09:19 Labs: Short CBC 06/17/18 Range/Units 03:16 WBC 34.7 H* (4.3-11.1) K/mcL Hgb 9.4 L D (11.5-15.4) g/dL Hct 31.5 L (35.3-44.9) % Plt Count 244 (140-400) K/mcL Neutrophils # 31.2 H (1.6-8.9) K/mcL BMP 06/17/18 06/17/18 03:16 09:19 Sodium 148 H 146 H Potassium 3.5 3.6 Chloride 115 H 117 H Carbon Dioxide 15 L 19 L BUN 22 21 Creatinine 1.14 0.89 Glucose 148 H 171 H Calcium 8.4 L 8.6 Cardiac Enzymes 06/17/18 Range/Units 09:19 Troponin I 0.07 H* (< 0.04) ng/mL Liver Function 06/17/18 Range/Units 03:16 Total Bilirubin 0.4 (0.3-1.0) mg/dL AST 18 (13-39) Units/L ALT 10 (7-52) Units/L Alkaline Phosphatase 63 (34-104) Units/L Albumin 2.6 L (3.5-5.7) g/dL - ABG Interpretation ABG results: ABG ABG pH 7.42 pH Units (7.32-7.45) 06/17/18 09:58 ABG pCO2 34 mmHg (35-45) L 06/17/18 09:58 ABG pO2 417 mmHg (85-104) H 06/17/18 09:58 ABG O2 Saturation 100 % (95-98) H 06/17/18 09:58 PT/INR, D-dimer PT 16.6 Seconds (9.4-12.1) H 06/17/18 03:16 Consult Discharge Plan - Plan Referrals: Wade Metcalf MD [Primary Care Provider] - Palliative Quality Palliative Quality: Screen for Code Status: Yes, Screen for Goals of Care: Yes, Screen for Pain: Yes, If Pain Regimen Started, Initiate Bowel Regimen: Yes, Screen for Nausea/Vomitting: Yes Code Status: 06/17/18 03:36 CODE [Resuscitation Status: Active] [RES] Routine Comment: Resuscitation Status: DNR-Comfort Care
[2018-06-17] MEDS ORDERED: traMADol 50 MG TABLET GTUBE PRN (12:12)
[2018-06-17 21:06] LABS: blaKPC Carbapenem-Resist Gene Not Detected (Not Detect)
[2018-06-17 21:07] LABS: Acinetobacter baumannii by PCR Not Detected (Not Detect); Candida albicans by PCR Not Detected (Not Detect); Candida glabrata by PCR Not Detected (Not Detect); Candida krusei by PCR Not Detected (Not Detect); Candida parapsilosis by PCR Not Detected (Not Detect); Candida tropicalis by PCR Not Detected (Not Detect); Enterobacter cloacae Cmplx PCR Not Detected (Not Detect); Enterobacteriaceae by PCR DETECTED (Not Detect); Enterococcus by PCR Not Detected (Not Detect); Escherichia coli by PCR Not Detected (Not Detect); Klebsiella oxytoca by PCR Not Detected (Not Detect); Klebsiella pneumoniae by PCR Not Detected (Not Detect); Pseudomonas aeruginosa by PCR Not Detected (Not Detect); Serratia marcescens by PCR Not Detected (Not Detect); Staphylococcus aureus by PCR Not Detected (Not Detect); Staphylococcus by PCR Not Detected (Not Detect); Streptococcus agalactiae(B)PCR Not Detected (Not Detect); Streptococcus by PCR Not Detected (Not Detect); Streptococcus pneumoniae PCR Not Detected (Not Detect); Streptococcus pyogenes (A) PCR Not Detected (Not Detect)
[2018-06-18] MEDS: Atropine 1% Opth Drops 100 DROP/5 ML BOTTLE SL SCH ×7 (00:08→23:28)
[2018-06-18] MEDS: D5% in 0.45% NACL 1,000 ML IVC SCH ×3 (00:33→20:58)
[2018-06-18] MEDS: *HR* Heparin 5,000 UNIT/ML VIAL SQ SCH ×3 (05:59→21:01)
[2018-06-18 07:26] LABS: Proteus by PCR DETECTED (Not Detect)
[2018-06-18] MEDS: Sennosides 8.6 MG TABLET PO SCH (08:36)
[2018-06-18] MEDS: Aspirin Enteric Coated 81 MG Tablet PO SCH (08:37)
[2018-06-18] MEDS: Meropenem 1,000 MG in Water for inj. (sterile) 20 ML 10 ML IVP SCH ×2 (08:38→20:18)
[2018-06-18] MEDS: Sucralfate 1 GM TABLET PO SCH ×2 (08:38→16:09)
[2018-06-18] MEDS ORDERED: Aminoglycoside Consult 1 EACH MC ONE (12:27)
--- NOTE | 2018-06-18 13:34 | Internal Med Progress Note ---
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 Daughter is critical care nurse. Similar admission March 2018. terminal carman morin cath was administered at last hospitalization and been tolerating well until 2 days ago with foul smell and leak. She went to wound care for heel yesterday for debridement and was relatively at baseline, labs with mild leukocytosis but significant hypernatremia. Her MS declined since debridgement and developed respiratory distress. Family brought her to ED for eval and she was found to be in septic shock, possible aspiration pneumonia. Patient's daughter at bedside. Patient is more verbal today and back to baseline mentation. Still unable to answer questions appropriately, but that is her baseline. She is more active as well. Tolerating PO intake. Voiding via catheter without difficulty. No acute events or concerns. - Exam Vitals: Temp Pulse Resp BP Pulse Ox 99.1 F 107 22 132/77 100 06/18/18 12:36 06/18/18 12:36 06/18/18 12:36 06/18/18 12:36 06/18/18 12:36 Exam: Gen: Vitals noted. Frail-appearing, does not respond to commands. HEENT: Normocephalic, atraumatic. Dry mucous membranes. Neck: Supple. No adenopathy. Cardiac: RRR, no murmur, +S1/S2 Pulmonary: CTA bilaterally, no wheezes, rales or rhonchi, equal chest expansion Abdomen: soft, nontender, no guarding Back: Nontender throughout. MSK: ROM intact, no joint swelling noted Extremities: no BLE edema, nontender calf, no cyanosis or clubbing. There is an ulcer that is wrapped on the left heel. Neuro: Patient is alert, non-communicative Psych: Does not speak or follow commands - Assessment and Plan (1) Severe sepsis Current Visit: Yes Status: Acute Assessment and Plan: Improved Patient is DNR-CC Back to baseline mental status On admission, leukocytosis 34.5 with 14% bands, fever 103.6F, tachycardic, RR 30. CT abdomen without evidence of pyelonephritis. There is nonobstructing left nephrolithiasis, cholelithiasis with prominent gallbladder. No cholecystic stranding to indicate cholecystitis. Repeat lactic acid with improvement after 2.5L fluids and antibiotics: 3.1/4.4/ 8.8/9.3 BCx and UCx with gram negative rods, pending sensitivities. Severe sepsis likely secondary to UTI Will continue meropenem due to extensive history of ESBL E. Coli bacteremia. d/ c vancomycin. Recheck labs tomorrow morning. Patient's daughter also reports leaking PEG tube. Will consult surgery to take a look. (2) UTI (urinary tract infection) Current Visit: Yes Status: Acute Assessment and plan: Acute complicated cystitis, presumed ESBL E. Coli Patient has history of multiple ESBL infections Urinanalysis is positive for nitrites and leukocyte esterase Continue meropenem and vancomycin as above Exchange morin catheter Qualifiers: Urinary tract infection type: acute cystitis Hematuria presence: without hematuria Qualified Code(s): N30.00 - Acute cystitis without hematuria (3) Acute respiratory failure Current Visit: Yes Status: Acute Assessment and plan: Acute hypoxic respiratory failure Likely secondary to sepsis, tachycardia and increased demand No evidence of pneumonia at this time either clinically or on imaging We will continue to monitor, Provide supplemental O2 Qualifiers: Respiratory failure complication: hypoxia Qualified Code(s): J96.01 - Acute respiratory failure with hypoxia (4) Hypernatremia Current Visit: Yes Status: Acute Assessment and plan: Hypernatremia, appears chronic Presents with sodium 149 which was elevated over past two days on labs as well Patient does get free water pushes per PEG at [facility] however daughter is concerned that she has not been getting them Appears to be improving. Continue with D5 1/2 maintenance fluids. (5) JEANNIE (acute kidney injury) Current Visit: Yes Status: Acute Assessment and plan: Improved. Patient has no baseline chronic kidney disease Likely secondary to septic shock continue with maintanance fluids. Recheck BMP in am (6) Elevated troponin Current Visit: Yes Status: Acute Assessment and plan: Elevated troponin, 0.08 Secondary to demand ischemia in setting of septic shock (7) Dementia Current Visit: No Status: Chronic Assessment and plan: Poor mentation, unable to provide self care Qualifiers: Dementia type: unspecified type Dementia behavioral disturbance: without behavioral disturbance Qualified Code(s): F03.90 - Unspecified dementia without behavioral disturbance (8) Counseling regarding advanced care planning and goals of care Current Visit: Yes Status: Acute Assessment and plan: Patient has septic shock with severe volume depletion and intermittent hypotension. The patient's daughter is a retired critical care nurse, and states that she would like the patient to be DNR-CC, and refuses and advanced care including central lines, pressors, intubation. She requests that the patient receive aggressive antibiotics, fluid rescusitation, and labs to monitor progress, however she does not want anything more. Does not want intubation. Code status changed to DNR-CC per POA request. Palliative at bedside. Patient's daughter declined hospice at this time. DVT Prophylaxis: Heparin SubQ - Time Spent with Patient Total time spent is greater than 50% in coordination of care (as documented) at patient's floor/unit and/or counseling patient: Greater than 35 minutes Plan of Care Discussed with: patient Internal Medicine: Result - Labs CBC & Chem 7: 06/17/18 03:16 06/17/18 21:58 Labs: BMP 06/17/18 21:58 Sodium 145 - ABG Interpretation ABG results: ABG ABG pH 7.42 pH Units (7.32-7.45) 06/17/18 09:58 ABG pCO2 34 mmHg (35-45) L 06/17/18 09:58 ABG pO2 417 mmHg (85-104) H 06/17/18 09:58 ABG O2 Saturation 100 % (95-98) H 06/17/18 09:58 PT/INR, D-dimer PT 16.6 Seconds (9.4-12.1) H 06/17/18 03:16 Consult Discharge Plan - Plan Referrals: Wade Metcalf MD [Primary Care Provider] - <Ngoc Sanchez - Last Filed: 06/18/18 14:04> Hospitalist Progress Note - Encounter Date of Encounter: 06/18/18 - Exam Vitals: Temp Pulse Resp BP Pulse Ox 99.1 F 107 22 132/77 100 06/18/18 12:36 06/18/18 12:36 06/18/18 12:36 06/18/18 12:36 06/18/18 12:36 - Assessment and Plan (1) Hypernatremia Current Visit: Yes Status: Acute (2) Dementia Current Visit: No Status: Chronic (3) DVT prophylaxis Current Visit: No Status: Acute (4) Counseling regarding advanced care planning and goals of care Current Visit: Yes Status: Acute (5) UTI (urinary tract infection) Current Visit: Yes Status: Acute (6) Elevated troponin Current Visit: Yes Status: Acute (7) Acute respiratory failure Current Visit: Yes Status: Acute (8) JEANNIE (acute kidney injury) Current Visit: Yes Status: Acute (9) Septic shock Current Visit: Yes Status: Acute - Time Spent with Patient Total time spent is greater than 50% in coordination of care (as documented) at patient's floor/unit and/or counseling patient: Internal Medicine: Result - Labs CBC & Chem 7: 06/17/18 03:16 06/17/18 21:58 Labs: BMP 06/17/18 21:58 Sodium 145 - ABG Interpretation ABG results: ABG ABG pH 7.42 pH Units (7.32-7.45) 06/17/18 09:58 ABG pCO2 34 mmHg (35-45) L 06/17/18 09:58 ABG pO2 417 mmHg (85-104) H 06/17/18 09:58 ABG O2 Saturation 100 % (95-98) H 06/17/18 09:58 PT/INR, D-dimer PT 16.6 Seconds (9.4-12.1) H 06/17/18 03:16 - Attending Attestation Seen and assessed. Agree with plan per resident Plan severe Sepsis. Continue IV fluids and antibiotics. Urine and blood cultures growing gram negative rods. Continue meropenem. D/C Vanc. Follow up sensitivities <Ngoc Sanchez - Last Filed: 06/18/18 14:04> (2) Dementia Qualifiers: Dementia type: unspecified type Dementia behavioral disturbance: without behavioral disturbance Qualified Code(s): F03.90 - Unspecified dementia without behavioral disturbance (5) UTI (urinary tract infection) Qualifiers: Urinary tract infection type: acute cystitis Hematuria presence: without hematuria Qualified Code(s): N30.00 - Acute cystitis without hematuria (7) Acute respiratory failure Qualifiers: Respiratory failure complication: hypoxia Qualified Code(s): J96.01 - Acute respiratory failure with hypoxia
[2018-06-18 16:30] LABS: BUN/Creatinine Ratio 35 (6-26); Blood Urea Nitrogen 17 mg/dL (8-23); Calcium 8.2 mg/dL (8.6-10.3); Carbon Dioxide 26 mEq/L (23-29); Chloride 116 mEq/L (98-107); Glucose 128 mg/dL (70-105); Osmolality,Calculated 303 (280-300); Potassium 3.3 mEq/L (3.5-5.1); Sodium 145 mEq/L (136-145); eGFR For Non-African Americans > 60 (> 60)
[2018-06-19] MEDS: Atropine 1% Opth Drops 100 DROP/5 ML BOTTLE SL SCH ×6 (04:00→22:44)
[2018-06-19 04:12] LABS: BUN/Creatinine Ratio 31 (6-26); Blood Urea Nitrogen 14 mg/dL (8-23); Calcium 8.2 mg/dL (8.6-10.3); Carbon Dioxide 23 mEq/L (23-29); Chloride 114 mEq/L (98-107); Glucose 126 mg/dL (70-105); Osmolality,Calculated 298 (280-300); Sodium 143 mEq/L (136-145); eGFR For Non-African Americans > 60 (> 60)
[2018-06-19 05:03] LABS: Basophils # 0.1 K/mcL (0.0-0.2); Basophils % 0.2 %; Eosinophils # 0.6 K/mcL (0.0-0.6); Hematocrit 30.2 % (35.3-44.9); Hemoglobin 9.1 g/dL (11.5-15.4); Lymphocytes % 3.7 %; Mean Corpuscular HGB Conc 30.1 g/dL (31.6-35.5); Mean Corpuscular Hemoglobin 20.2 pg (28.0-33.3); Mean Corpuscular Volume 67.1 fL (83.0-100.0); Mean Platelet Volume 11.1 fL (9.4-12.4); Monocytes % 2.3 %; Neutrophils # 24.7 K/mcL (1.6-8.9); Platelet Count 218 K/mcL (140-400); Red Cell Distribution Width 17.3 % (11.5-14.5); Segmented Neutrophils % 87.8 %
[2018-06-19 05:08] LABS: Monocytes # 0.7 K/mcL (0.0-1.3)
[2018-06-19] MEDS: D5% in 0.45% NACL 1,000 ML IVC SCH ×3 (05:21→21:38)
[2018-06-19] MEDS: *HR* Heparin 5,000 UNIT/ML VIAL SQ SCH ×3 (05:21→21:52)
[2018-06-19 05:57] LABS: Anisocytosis 1+ (Not Present); Hypochromasia Present (Not Present); Poikilocytosis 1+ (Not Present); Schistocytes 1+ (Not Present)
[2018-06-19 05:58] LABS: Platelet Estimate Normal (Normal)
[2018-06-19] MEDS: Meropenem 1,000 MG in Water for inj. (sterile) 20 ML 10 ML IVP SCH ×2 (08:09→21:52)
[2018-06-19] MEDS: Sennosides 8.6 MG TABLET PO SCH (08:10)
[2018-06-19] MEDS: Aspirin Enteric Coated 81 MG Tablet PO SCH (08:10)
[2018-06-19] MEDS: Sucralfate 1 GM TABLET PO SCH ×2 (08:10→17:49)
--- NOTE | 2018-06-19 12:19 | Palliative Progress Note ---
Date of Encounter: 06/19/18 Time of Encounter: 12:00 - Assessment and plan (1) Generalized pain Current Visit: No Status: Acute Assessment and plan: Patient has Ultram for pain. None given in past 24 hrs. Patient resting calm. History of dementia. (2) Goals of care, counseling/discussion Current Visit: Yes Status: Acute Assessment and plan: Daughter not ready to transition patient to hospice care. Patient appears comfortable and PEG feedings and patient is tolerating well. Resolving leukocytosis. Patient will DC to ECF. (3) Dementia Current Visit: No Status: Chronic Qualifiers: Dementia type: unspecified type Dementia behavioral disturbance: without behavioral disturbance Qualified Code(s): F03.90 - Unspecified dementia without behavioral disturbance (4) Sepsis Current Visit: Yes Status: Acute Assessment and plan: Resolving Qualifiers: Sepsis type: sepsis due to unspecified organism Qualified Code(s): A41.9 - Sepsis, unspecified organism - Time Spent With Patient Total time spent is greater than 50% in coordination of care (as documented) at patient's floor/unit and/or counseling patient: - Subjective Interval history: Patient in bed. History of dementia. Nonverbal. Opens eyes to verbals and slightly tracks provider around room. Peg feedings at 50/hr with Osmolite. Tolerating well. No family at bedside. - Constitutional Vitals: Abnormal lab results WBC 28.1 K/mcL (4.3-11.1) H 06/19/18 04:53 Hgb 9.1 g/dL (11.5-15.4) L 06/19/18 04:53 Hct 30.2 % (35.3-44.9) L 06/19/18 04:53 MCV 67.1 fL (83.0-100.0) L 06/19/18 04:53 MCH 20.2 pg (28.0-33.3) L 06/19/18 04:53 MCHC 30.1 g/dL (31.6-35.5) L 06/19/18 04:53 RDW 17.3 % (11.5-14.5) H 06/19/18 04:53 Band Neutrophils % 16.0 % (0-4) H 06/17/18 03:16 Metamyelocytes % 4.0 % (0) H 06/17/18 03:16 Neutrophils # 24.7 K/mcL (1.6-8.9) H 06/19/18 04:53 Nucleated RBCs/100 WBC 0.1 /100 WBC (0) H 06/17/18 03:16 Toxic Vacuolation Present (Not Present) A 06/17/18 03:16 Large Platelets Present (Not Present) A 06/17/18 03:16 Polychromasia 1+ (Not Present) A 06/17/18 03:16 Hypochromasia Present (Not Present) A 06/19/18 04:53 Poikilocytosis 1+ (Not Present) A 06/19/18 04:53 Anisocytosis 1+ (Not Present) A 06/19/18 04:53 Microcytosis Present (Not Present) A 06/16/18 23:55 Schistocytes 1+ (Not Present) A 06/19/18 04:53 PT 16.6 Seconds (9.4-12.1) H 06/17/18 03:16 ABG pCO2 34 mmHg (35-45) L 06/17/18 09:58 ABG pO2 417 mmHg (85-104) H 06/17/18 09:58 ABG O2 Saturation 100 % (95-98) H 06/17/18 09:58 VBG pH 7.21 pH Units (7.32-7.42) L 06/17/18 03:32 VBG pO2 114 mmHg (25-50) H 06/17/18 03:32 VBG HCO3 17 mEq/L (21-27) L 06/17/18 03:32 Chloride 114 mEq/L (98-107) H 06/19/18 03:23 Creatinine 0.45 mg/dL (0.60-1.20) L 06/19/18 03:23 BUN/Creatinine Ratio 31 (6-26) H 06/19/18 03:23 Glucose 126 mg/dL (70-105) H 06/19/18 03:23 POC Glucose 127 mg/dL (70-99) H 06/18/18 20:37 Lactic Acid 3.1 mmol/L (0.5-2.2) H 06/17/18 22:14 Calcium 8.2 mg/dL (8.6-10.3) L 06/19/18 03:23 Troponin I 0.07 ng/mL (< 0.04) H* 06/17/18 09:19 B-Natriuretic Peptide 372 pg/mL (Less than 100) H 06/16/18 23:55 Serum Total Protein 5.3 g/dL (6.4-8.9) L 06/17/18 03:16 Albumin 2.6 g/dL (3.5-5.7) L 06/17/18 03:16 Albumin/Globulin Ratio 1.0 (1.1-2.2) L 06/17/18 03:16 Urine pH >=9.0 pH Units (5.0-8.0) H 06/16/18 23:49 Urine Protein 100 mg/dL (Neg-Trace) H 06/16/18 23:49 Urine Nitrite Positive (Negative) A 06/16/18 23:49 Ur Leukocyte Esterase Moderate (Negative) H 06/16/18 23:49 Urine Microscopic WBC 3-5 per hpf (0-3) H 06/16/18 23:49 Urine Bacteria Many per hpf (None-Few) H 06/16/18 23:49 Ur Culture Indicated? YES (NO) A 06/16/18 23:49 Enterobacteriac sp PCR DETECTED (Not Detect) A 06/16/18 23:55 Proteus species (PCR) DETECTED (Not Detect) A 06/16/18 23:55 - Head Head exam: Present: atraumatic, normal inspection, normocephalic - Eye Eye exam: Present: PERRL - Neck Neck exam: Present: full ROM - Respiratory Respiratory exam: Present: decreased breath sounds - Expanded Respiratory Exam Location: decreased breath sounds: Left, Right, Lower - Cardiovascular Cardiovascular exam: Present: RRR, +S1, +S2 - GI/Abdominal GI/Abdominal exam: Present: soft Additional comments: PEG with feedings. HOB up - Extremities Exam Extremities exam: Present: tenderness - Neurological Exam Neurological exam: Present: alert, altered - Psychiatric Psychiatric exam: Present: flat affect - Skin Skin exam: Present: warm Palliative Quality Palliative Quality: Screen for Code Status: Yes, Screen for Goals of Care: Yes, Screen for Pain: Yes, If Pain Regimen Started, Initiate Bowel Regimen: Yes, Screen for Nausea/Vomitting: Yes Code Status: 06/17/18 03:36 CODE [Resuscitation Status: Active] [RES] Routine Comment: Resuscitation Status: DNR-Comfort Care - Labs CBC & Chem 7: 06/19/18 04:53 06/19/18 03:23 Labs: Laboratory Results - last 24 hr 06/18/18 06/18/18 06/18/18 07:06 12:40 15:52 WBC RBC Hgb Hct MCV MCH MCHC RDW Plt Count MPV Immature Gran % Seg Neutrophils % Lymphocytes % Monocytes % Eosinophils % Basophils % Neutrophils # Lymphocytes # Monocytes # Eosinophils # Basophils # Platelet Estimate Hypochromasia Poikilocytosis Anisocytosis Schistocytes Sodium 145 Potassium 3.3 L Chloride 116 H Carbon Dioxide 26 BUN 17 Creatinine 0.49 L Est GFR ( Amer) > 60 Est GFR (Non-Af Amer) > 60 BUN/Creatinine Ratio 35 H Glucose 128 H POC Glucose 146 H 123 H Calculated Osmolality 303 H Calcium 8.2 L Specimen Rejected 06/18/18 06/18/18 06/19/18 16:02 20:37 03:23 WBC RBC Hgb Hct MCV MCH MCHC RDW Plt Count MPV Immature Gran % Seg Neutrophils % Lymphocytes % Monocytes % Eosinophils % Basophils % Neutrophils # Lymphocytes # Monocytes # Eosinophils # Basophils # Platelet Estimate Hypochromasia Poikilocytosis Anisocytosis Schistocytes Sodium 143 Potassium 4.0 Chloride 114 H Carbon Dioxide 23 BUN 14 Creatinine 0.45 L Est GFR ( Amer) > 60 Est GFR (Non-Af Amer) > 60 BUN/Creatinine Ratio 31 H Glucose 126 H POC Glucose 137 H 127 H Calculated Osmolality 298 Calcium 8.2 L Specimen Rejected 06/19/18 06/19/18 03:23 04:53 WBC 28.1 H RBC 4.50 Hgb 9.1 L Hct 30.2 L MCV 67.1 L MCH 20.2 L MCHC 30.1 L RDW 17.3 H Plt Count 218 MPV 11.1 Immature Gran % 4.0 Seg Neutrophils % 87.8 Lymphocytes % 3.7 Monocytes % 2.3 Eosinophils % 2.0 Basophils % 0.2 Neutrophils # 24.7 H Lymphocytes # 1.0 Monocytes # 0.7 Eosinophils # 0.6 Basophils # 0.1 Platelet Estimate Normal Hypochromasia Present A Poikilocytosis 1+ A Anisocytosis 1+ A Schistocytes 1+ A Sodium Potassium Chloride Carbon Dioxide BUN Creatinine Est GFR ( Amer) Est GFR (Non-Af Amer) BUN/Creatinine Ratio Glucose POC Glucose Calculated Osmolality Calcium Specimen Rejected Clotted - ABG Interpretation ABG results: ABG ABG pH 7.42 pH Units (7.32-7.45) 06/17/18 09:58 ABG pCO2 34 mmHg (35-45) L 06/17/18 09:58 ABG pO2 417 mmHg (85-104) H 06/17/18 09:58 ABG O2 Saturation 100 % (95-98) H 06/17/18 09:58 PT/INR, D-dimer PT 16.6 Seconds (9.4-12.1) H 06/17/18 03:16 Consult Discharge Plan - Plan Referrals: Wade Metcalf MD [Primary Care Provider] -
--- NOTE | 2018-06-19 13:09 | Internal Med Progress Note ---
<Nacho Heath - Last Filed: 06/19/18 13:04> Hospitalist Progress Note - Encounter Date of Encounter: 06/19/18 Time of Encounter: 09:45 - Subjective Interval History: PMHx end-stage dementia, hyperlipidemia, hypernatremia, left heel ulcer and recurrent ESBL UTIs presented from [facility] for fever and foul smelling urine for 2 days, acute hypoxia last night. Daughter is critical care nurse. Similar admission March 2018. day worker morin cath was administered at last hospitalization and been tolerating well until 2 days ago with foul smell and leak. She went to wound care for heel yesterday for debridement and was relatively at baseline, labs with mild leukocytosis but significant hypernatremia. Her MS declined since debridgement and developed respiratory distress. Family brought her to ED for eval and she was found to be in septic shock, possible aspiration pneumonia. Daughter not a bedside. Subjective limited. Mental status appears baseline. - Exam Vitals: Temp Pulse Resp BP Pulse Ox 98.0 F 100 19 161/92 100 06/19/18 11:21 06/19/18 11:21 06/19/18 11:21 06/19/18 11:21 06/19/18 11:21 Exam: Gen: Vitals noted. Frail-appearing, does not respond to commands. HEENT: Normocephalic, atraumatic. Dry mucous membranes. Neck: Supple. No adenopathy. Cardiac: RRR, no murmur, +S1/S2 Pulmonary: CTA bilaterally, no wheezes, rales or rhonchi, equal chest expansion Abdomen: soft, nontender, no guarding Back: Nontender throughout. MSK: ROM intact, no joint swelling noted Extremities: no BLE edema, nontender calf, no cyanosis or clubbing. There is an ulcer that is wrapped on the left heel. Neuro: Patient is alert, non-communicative Psych: Does not speak or follow commands - Assessment and Plan (1) Severe sepsis Current Visit: Yes Status: Acute (2) Sepsis Current Visit: Yes Status: Acute Assessment and Plan: Improving. Patient is DNR-CC Back to baseline mental status On admission, leukocytosis 34.5 with 14% bands, fever 103.6F, tachycardic, RR 30. CT abdomen without evidence of pyelonephritis. There is nonobstructing left nephrolithiasis, cholelithiasis with prominent gallbladder. No cholecystic stranding to indicate cholecystitis. Repeat lactic acid with improvement after 2.5L fluids and antibiotics: 3.1/4.4/ 8.8/9.3 BCx and UCx with gram negative rods, pending sensitivities. Leukocytosis downtrending Severe sepsis likely secondary to UTI Serology +enterobacter and +proteus UCx Proteus sensitive to meropenem Will continue meropenem day #3 due to extensive history of ESBL E. Coli bacteremia. Recheck labs tomorrow morning. PEG tube appears clean and dry today, without signs of infection. Dispo plan: Patient is improved but continues to be septic with leukocytosis, tachycardia, UTI/bacteremia. Will discharge patient if she continues to improve tomorrow. (2) UTI (urinary tract infection) Current Visit: Yes Status: Acute Assessment and plan: Acute complicated cystitis, presumed ESBL E. Coli Patient has history of multiple ESBL infections Urinanalysis is positive for nitrites and leukocyte esterase Continue meropenem and vancomycin as above Exchange morin catheter Qualifiers: Urinary tract infection type: acute cystitis Hematuria presence: without hematuria Qualified Code(s): N30.00 - Acute cystitis without hematuria (3) Acute respiratory failure Current Visit: Yes Status: Acute Assessment and plan: Acute hypoxic respiratory failure Likely secondary to sepsis, tachycardia and increased demand No evidence of pneumonia at this time either clinically or on imaging We will continue to monitor, Provide supplemental O2 Qualifiers: Respiratory failure complication: hypoxia Qualified Code(s): J96.01 - Acute respiratory failure with hypoxia (4) Hypernatremia Current Visit: Yes Status: Acute Assessment and plan: Hypernatremia, appears chronic Presents with sodium 149 which was elevated over past two days on labs as well Patient does get free water pushes per PEG at assisted however daughter is concerned that she has not been getting them Appears to be improving. Continue with D5 1/2 maintenance fluids. (5) JEANNIE (acute kidney injury) Current Visit: Yes Status: Acute Assessment and plan: Improved. Patient has no baseline chronic kidney disease Likely secondary to septic shock continue with maintanance fluids. Recheck BMP in am (6) Elevated troponin Current Visit: Yes Status: Acute Assessment and plan: Elevated troponin, 0.08 Secondary to demand ischemia in setting of septic shock (7) Dementia Current Visit: No Status: Chronic Assessment and plan: Poor mentation, unable to provide self care Qualifiers: Dementia type: unspecified type Dementia behavioral disturbance: without behavioral disturbance Qualified Code(s): F03.90 - Unspecified dementia without behavioral disturbance (8) Counseling regarding advanced care planning and goals of care Current Visit: Yes Status: Acute Assessment and plan: Patient has septic shock with severe volume depletion and intermittent hypotension. The patient's daughter is a retired critical care nurse, and states that she would like the patient to be DNR-CC, and refuses and advanced care including central lines, pressors, intubation. She requests that the patient receive aggressive antibiotics, fluid rescusitation, and labs to monitor progress, however she does not want anything more. Does not want intubation. Code status changed to DNR-CC per POA request. Palliative at bedside. Patient's daughter declined hospice at this time. DVT Prophylaxis: Heparin SubQ - Time Spent with Patient Total time spent is greater than 50% in coordination of care (as documented) at patient's floor/unit and/or counseling patient: Greater than 35 minutes Plan of Care Discussed with: patient Internal Medicine: Result - Labs CBC & Chem 7: 06/19/18 04:53 06/19/18 03:23 Labs: Short CBC 06/19/18 Range/Units 04:53 WBC 28.1 H (4.3-11.1) K/mcL Hgb 9.1 L (11.5-15.4) g/dL Hct 30.2 L (35.3-44.9) % Plt Count 218 (140-400) K/mcL Neutrophils # 24.7 H (1.6-8.9) K/mcL BMP 06/18/18 06/19/18 15:52 03:23 Sodium 145 143 Potassium 3.3 L 4.0 Chloride 116 H 114 H Carbon Dioxide 26 23 BUN 17 14 Creatinine 0.49 L 0.45 L Glucose 128 H 126 H Calcium 8.2 L 8.2 L - ABG Interpretation ABG results: ABG ABG pH 7.42 pH Units (7.32-7.45) 06/17/18 09:58 ABG pCO2 34 mmHg (35-45) L 06/17/18 09:58 ABG pO2 417 mmHg (85-104) H 06/17/18 09:58 ABG O2 Saturation 100 % (95-98) H 06/17/18 09:58 PT/INR, D-dimer PT 16.6 Seconds (9.4-12.1) H 06/17/18 03:16 Consult Discharge Plan - Plan Referrals: Wade Metcalf MD [Primary Care Provider] - <Ngoc Sanchez - Last Filed: 06/19/18 13:12> Hospitalist Progress Note - Encounter Date of Encounter: 06/19/18 - Exam Vitals: Temp Pulse Resp BP Pulse Ox 98.0 F 100 19 161/92 100 06/19/18 11:21 06/19/18 11:21 06/19/18 11:21 06/19/18 11:21 06/19/18 11:21 - Assessment and Plan (1) Hypernatremia Current Visit: Yes Status: Acute (2) Dementia Current Visit: No Status: Chronic (3) DVT prophylaxis Current Visit: No Status: Acute (4) Counseling regarding advanced care planning and goals of care Current Visit: Yes Status: Acute (5) UTI (urinary tract infection) Current Visit: Yes Status: Acute (6) Elevated troponin Current Visit: Yes Status: Acute (7) Acute respiratory failure Current Visit: Yes Status: Acute (8) JEANNIE (acute kidney injury) Current Visit: Yes Status: Acute (9) Septic shock Current Visit: Yes Status: Acute - Time Spent with Patient Total time spent is greater than 50% in coordination of care (as documented) at patient's floor/unit and/or counseling patient: Internal Medicine: Result - Labs CBC & Chem 7: 06/19/18 04:53 06/19/18 03:23 Labs: Short CBC 06/19/18 Range/Units 04:53 WBC 28.1 H (4.3-11.1) K/mcL Hgb 9.1 L (11.5-15.4) g/dL Hct 30.2 L (35.3-44.9) % Plt Count 218 (140-400) K/mcL Neutrophils # 24.7 H (1.6-8.9) K/mcL BMP 06/18/18 06/19/18 15:52 03:23 Sodium 145 143 Potassium 3.3 L 4.0 Chloride 116 H 114 H Carbon Dioxide 26 23 BUN 17 14 Creatinine 0.49 L 0.45 L Glucose 128 H 126 H Calcium 8.2 L 8.2 L - ABG Interpretation ABG results: ABG ABG pH 7.42 pH Units (7.32-7.45) 06/17/18 09:58 ABG pCO2 34 mmHg (35-45) L 06/17/18 09:58 ABG pO2 417 mmHg (85-104) H 06/17/18 09:58 ABG O2 Saturation 100 % (95-98) H 06/17/18 09:58 PT/INR, D-dimer PT 16.6 Seconds (9.4-12.1) H 06/17/18 03:16 - Attending Attestation Seen and assessed. Agree with plan per resident Plan severe Sepsis. Continue IV fluids and antibiotics. Urine and blood cultures growing gram negative rods. Continue meropenem. D/C Vanc. Follow up sensitivities ID consulted and appreciate recs <Nacho Heath - Last Filed: 06/19/18 13:04> (2) Sepsis Qualifiers: Sepsis type: sepsis due to unspecified organism Qualified Code(s): A41.9 - Sepsis, unspecified organism <Ngoc Sanchez - Last Filed: 06/19/18 13:12> (2) Dementia Qualifiers: Dementia type: unspecified type Dementia behavioral disturbance: without behavioral disturbance Qualified Code(s): F03.90 - Unspecified dementia without behavioral disturbance (5) UTI (urinary tract infection) Qualifiers: Urinary tract infection type: acute cystitis Hematuria presence: without hematuria Qualified Code(s): N30.00 - Acute cystitis without hematuria (7) Acute respiratory failure Qualifiers: Respiratory failure complication: hypoxia Qualified Code(s): J96.01 - Acute respiratory failure with hypoxia
--- NOTE | 2018-06-19 13:26 | Electrocardiograph Report ---
[address] [place], [place] [address] Test Date: 2018-06-16 Pat Name: Vielka Mccain Department: [id number] Room: 2N03 Gender: F Route Clerk: : [id number] Requested By: Rishabh Costa Order Number: [id number] Reading MD: Mitra Alfred Measurements Intervals Florien Rate: 142 P: 74 NH: 56 QRS: 94 QRSD: 75 T: 259 QT: 288 QTc: 443 Interpretive Statements Sinus tachycardia Borderline right axis deviation Right atrial enlargement Minimal ST depression, inferior leads Borderline T abnormalities, inferior leads Electronically Signed On 06-19-2018 13:25:26 EDT by Mitra Alfred
--- NOTE | 2018-06-19 17:06 | Infectious Disease Consult ---
Date of Encounter: 06/19/18 Time of Encounter: 17:05 Assessment and Plan (1) Severe sepsis Status: Acute Assessment and plan: On admission patient had severe sepsis criteria including bandemia lactic acidosis Secondary to likely UTI with gram-negative kal bacteremia Improved (2) Bacteremia due to Gram-negative bacteria Status: Acute Assessment and plan: Likely source is the urine Blood cultures one set on 06/16/2018 and one set on 06/17/2018 are positive for gram-negative kal; PCR thick, Proteus species Repeat blood cultures 2 I presumed that the Proteus in the blood the same as the Proteus mirabilis in the urine and I had the susceptibility pattern We will DC meropenem Start ceftriaxone 2 g IV every 24 hours Duration of treatment likely 14 days total for first negative culture Monitor labs and for drug toxicity (3) UTI (urinary tract infection) Status: Acute Assessment and plan: Causative organism Proteus mirabilis S: Cefazolin, cefepime, ceftazidime, ceftriaxone, ertapenem and Zosyn; R: Unasyn, fluoroquinolone, nitrofurantoin, Bactrim, aminoglycosides Currently patient on meropenem; ironically bacteria is susceptible to ertapenem but it is intermediate to imipenem DC meropenem and start the patient on Rocephin 2 g IV every 24 hours Qualifiers: Urinary tract infection type: acute cystitis Hematuria presence: without hematuria Qualified Code(s): N30.00 - Acute cystitis without hematuria (4) Decubitus ulcer of coccygeal region, stage 2 Status: Acute Assessment and plan: We will monitor closely. Wound care to evaluate Rotate patient every 2 hours (5) Advanced dementia Status: Acute (6) Failure to thrive Status: Acute Assessment and plan: Patient still every 8 is 44.6 kg and a BMI of 18.6 Qualifiers: Failure to thrive age range: in adult Qualified Code(s): R62.7 - Adult failure to thrive (7) Unstageable pressure ulcer of left heel Status: Acute Infectious Disease HPI - Data of Consult Patient: new to practice Consult date: 06/19/18 Requesting Physician: Denton Moise MD Primary Care Provider: Wade Metcalf MD - Consult Narrative Reason for consult: sepsis History of present illness: Ms. Mccain is a 88 year old female Patient is a 88 year old female who presented from nursing facility to the ED on 06/16/18 with compliant of shortness of breath and what was presumed to be a UTI. Patient has since been admitted to [facility] for what is thought to be sepsis, most likely secondary to UTI. Infectious disease is consulted on 06/19/18 for ESBL E coli. Patient has a past medical history of COPD, baseline dementia, hyperlipidemia, hypernatremia and reoccurring UTI. Patient presented to the ED with shortness of breath as well as associated symptoms of fever of 103 degrees, tachycardia, and tachypnea. Labs revealed leukocytosis of 34, elevated lactic acid of 9.3 and an elevated troponin level of 0.08. Sepsis protocol was initiated. Patient was started on antibiotics vancomycin, zoysn and Levaquin. Patient had evidence of UTI. Since being admitted to hospital, patient has had leukocytosis that is trending down to 28.1 and has remained afebrile apart from admission. Patient has adequate urinary catheter outflow. A CT was ordered and showed evidence of wall thickening of bladder compatible with cystitis but no evidence of pyelonephritis. Urinalysis was positive for leukocyte esterase and nitrites. Serology came back positive for Enterobacter and Proteus. Blood cultures have come back positive for unspecified gram negative rods. Overall, patients condition seems to be improving but still septic with leukocytosis, tachycardia , UTI and bacteremia. During my exam today patient is frail appearing and not responding to commands. Daughter is at bedside and answered all questions CC: Denton Moise MD Past Med Surg Social Fam HX - Past Medical History Medical history: dementia, hyperlipidemia Additional medical history: hypernatremia, AMS, alzheimers Psychiatric history: anxiety, depression - Past Surgical History Surgical History: no surgical history Additional surgical history: Tubal ligation. AAA repair. Femoral Graft left. Peg Tube - Social History Smoking Status: Unknown if ever smoked Smokeless Tobacco Status: No Alcohol use: none Drug use: none Infectious Disease-CN:Meds Acetaminophen [Tylenol 650mg SUPP] 650 mg RC Q6H PRN 03/03/18 [History] Albuterol Neb [Proventil Neb] 2.5 mg IH Q2H PRN 03/03/18 [History] Aspirin Enteric Coated [Aspirin EC] 81 mg PO DAILY 03/03/18 [History] Atropine 1% Opth Drops 1 drop SL Q4H PRN 03/03/18 [History] Donepezil HCl [Aricept] 10 mg PO DAILY 03/03/18 [History] Ferrous Sulfate [Iron] 325 mg PO DAILY 03/03/18 [History] Loratadine [Allergy Relief] 10 mg PO DAILY PRN 03/03/18 [History] MORPHINE SUL Oral CONC [Roxanol Oral Conc] 0.25 ml SL Q4H PRN 03/03/18 [History] Sennosides [Senna] 8.6 mg PO DAILY 03/03/18 [History] Sucralfate [Carafate] 1 gm PO BID 03/03/18 [History] amLODIPine [Norvasc] 5 mg PO DAILY tablet 03/09/18 [Rx] 3 Allergy/AdvReac Type Severity Reaction Status Date / Time No Known Allergies Allergy Verified 06/19/18 10:46 ROS unobtainable: due to mental status Exam - Constitutional Vitals: Temp Pulse Resp BP Pulse Ox 98.4 F 101 18 163/113 100 06/19/18 16:00 06/19/18 16:00 06/19/18 16:00 06/19/18 16:00 06/19/18 16:00 General appearance: disheveled, no febrile, no cooperative - Head Head exam: Present: atraumatic, normocephalic - Eye Eye exam: Present: EOMI, PERRL - ENT ENT exam: Present: mucous membranes dry - Neck Neck exam: Present: full ROM, normal inspection - Respiratory Additional comments: Air sounds audible both lung bertrand. Poor inspiratory effort. Limited exam with anterior auscultation. No wheezing - Cardiovascular Cardiovascular exam: Present: RRR, +S1, +S2 - GI/Abdominal GI/Abdominal exam: Present: soft Additional comments: No guarding. Bowel sounds audible. - Extremities Exam Additional comments: There is muscle wasting and frail upper and lower extremities. She has a decubitus ulcer on the left heel - Neurological Exam Neurological exam: Present: altered. Absent: oriented X3 - Skin Skin exam: Present: normal color. Absent: rash Infectious Disease CN: Results - Labs CBC & Chem 7: 06/19/18 04:53 06/19/18 03:23 Consult Discharge Plan - Plan Referrals: Wade Metcalf MD [Primary Care Provider] -
[2018-06-20] MEDS: D5% in 0.45% NACL 1,000 ML IVC SCH ×3 (00:24→21:23)
[2018-06-20] MEDS: Atropine 1% Opth Drops 100 DROP/5 ML BOTTLE SL SCH ×3 (03:56→12:47)
[2018-06-20 04:18] LABS: Eosinophils % 4.3 %; Mean Corpuscular HGB Conc 30.2 g/dL (31.6-35.5); Red Cell Distribution Width 17.1 % (11.5-14.5)
[2018-06-20 04:20] LABS: Basophils % 0.2 %; Eosinophils # 0.8 K/mcL (0.0-0.6); Hematocrit 31.8 % (35.3-44.9); Hemoglobin 9.6 g/dL (11.5-15.4); Immature Granulocytes % 1.1 % (0-4); Immature Platelets 6.8 % (1.1-6.1); Lymphocytes # 1.3 K/mcL (0.6-4.6); Lymphocytes % 7.3 %; Mean Corpuscular Hemoglobin 20.2 pg (28.0-33.3); Mean Corpuscular Volume 66.9 fL (83.0-100.0); Monocytes # 0.8 K/mcL (0.0-1.3); Monocytes % 4.5 %; Platelet Count 213 K/mcL (140-400); Red Blood Count 4.75 M/mcL (3.82-4.97); Segmented Neutrophils % 82.6 %
[2018-06-20 04:26] LABS: Neutrophils # 14.9 K/mcL (1.6-8.9)
[2018-06-20 04:38] LABS: BUN/Creatinine Ratio 25 (6-26); Blood Urea Nitrogen 10 mg/dL (8-23); Calcium 8.6 mg/dL (8.6-10.3); Carbon Dioxide 25 mEq/L (23-29); Chloride 112 mEq/L (98-107); Glucose 110 mg/dL (70-105); Osmolality,Calculated 298 (280-300); Potassium 3.7 mEq/L (3.5-5.1); Sodium 144 mEq/L (136-145); eGFR For Non-African Americans > 60 (> 60)
[2018-06-20 04:53] LABS: Microcytosis Present (Not Present); Ovalocytes 1+ (Not Present); Platelet Estimate Normal (Normal); Tear Drop Cells 1+ (Not Present)
[2018-06-20 04:54] LABS: Anisocytosis 1+ (Not Present); Poikilocytosis 1+ (Not Present)
[2018-06-20] MEDS: *HR* Heparin 5,000 UNIT/ML VIAL SQ SCH ×3 (05:36→21:17)
--- NOTE | 2018-06-20 07:32 | Internal Med Progress Note ---
<Citlali Borjas - Last Filed: 06/20/18 14:31> Hospitalist Progress Note - Encounter Date of Encounter: 06/20/18 - Exam Vitals: Temp Pulse Resp BP Pulse Ox 99.5 F 92 18 131/111 98 06/20/18 11:33 06/20/18 13:00 06/20/18 13:00 06/20/18 11:33 06/20/18 13:00 - Assessment and Plan (1) Hypernatremia Current Visit: Yes Status: Acute (2) Dementia Current Visit: No Status: Chronic (3) DVT prophylaxis Current Visit: No Status: Acute (4) Counseling regarding advanced care planning and goals of care Current Visit: Yes Status: Acute (5) UTI (urinary tract infection) Current Visit: Yes Status: Acute (6) Elevated troponin Current Visit: Yes Status: Acute (7) Acute respiratory failure Current Visit: Yes Status: Acute (8) JEANNIE (acute kidney injury) Current Visit: Yes Status: Acute (9) Septic shock Current Visit: Yes Status: Acute - Time Spent with Patient Total time spent is greater than 50% in coordination of care (as documented) at patient's floor/unit and/or counseling patient: Internal Medicine: Result - Labs CBC & Chem 7: 06/20/18 03:57 06/20/18 03:57 Labs: Short CBC 06/20/18 Range/Units 03:57 WBC 18.0 H (4.3-11.1) K/mcL Hgb 9.6 L (11.5-15.4) g/dL Hct 31.8 L (35.3-44.9) % Plt Count 213 (140-400) K/mcL Neutrophils # 14.9 H (1.6-8.9) K/mcL BMP 06/20/18 03:57 Sodium 144 Potassium 3.7 Chloride 112 H Carbon Dioxide 25 BUN 10 Creatinine 0.40 L Glucose 110 H Calcium 8.6 - ABG Interpretation ABG results: ABG ABG pH 7.42 pH Units (7.32-7.45) 06/17/18 09:58 ABG pCO2 34 mmHg (35-45) L 06/17/18 09:58 ABG pO2 417 mmHg (85-104) H 06/17/18 09:58 ABG O2 Saturation 100 % (95-98) H 06/17/18 09:58 PT/INR, D-dimer PT 16.6 Seconds (9.4-12.1) H 06/17/18 03:16 Consult Discharge Plan - Plan Referrals: Wade Metcalf MD [Primary Care Provider] - (This patient is from [facility] no PCP appointment needed) - Attending Attestation I examined this patient and my medical decision-making was reviewed with the Resident Physician Dr Heath. I agree with the documented findings, disposition and treatment plan as described except to the extent set forth below/addl details below Ms Mccain was admitted with altered mental status and severe sepsis. She has a hx os ESBL UTIs and + bacteremia here. ID has been following, most recent bl cxs remain +, suspected source is UTI. Awake, alert, doesn't speak. No family present at bedside. Unable to obtain further ros or hpi given given dementia. gen- alert, awake,appears stated age cv- reg rate and rhythm, normal s1,s2, no murmurs appreciated, no le edema, no jvd lungs- ctabl, no wheezing, rhonchi or crackles, normal resp effort abd- soft, not apparently tender, no guarding or grimace,non distended, +bs neuro- Alert, eyes open, pupils equal round and eom appear intact, non verbal, does not follow commands, no focal deficits can be appreciated with spontaneous movement of upper ext noted Severe Sepsis likely 2/2 UTI with gnr bacteremia, improving, treatment as below -wound care following for stage II sacral decub that does not appear to be source at this time -leakage around peg site, consult to surgery to eval and will fu recs if feel concerning for any infection Proteus Mirabilis UTI, with Chronic Morin catheter, clinically unable to determine if related to each other -ID following for ESBL hx, fu recs as may be able to de escalate abx from redd to rocephin today given ucx sensitivities, morin exchanged this admit GNR bacteremia, suspect source 06/16 bl cxs + proteus 06/17 bl cxs + proteus 06/20 bl cx ordered -cont abx as above, will need 2 w abx from first neg cxs Advanced Dementia- re orient as needed, cont home meds <Nacho Heaht - Last Filed: 06/20/18 16:38> Hospitalist Progress Note - Encounter Date of Encounter: 06/20/18 Time of Encounter: 09:20 - Subjective Interval History: PMHx end-stage dementia, hyperlipidemia, hypernatremia, left heel ulcer and recurrent ESBL UTIs presented from [facility] for fever and foul smelling urine for 2 days, acute hypoxia last night. Daughter is critical care nurse. Similar admission March 2018. intermediate manager morin cath was administered at last hospitalization and been tolerating well until 2 days ago with foul smell and leak. She went to wound care for heel yesterday for debridement and was relatively at baseline, labs with mild leukocytosis but significant hypernatremia. Her MS declined since debridgement and developed respiratory distress. Family brought her to ED for eval and she was found to be in septic shock, possible aspiration pneumonia. Daughter not a bedside. Subjective limited. Mental status appears baseline. Peg tube leaking. Patient on IVF and tube feedings. No diarrhea, vomiting, fever per nurse. - Exam Vitals: Temp Pulse Resp BP Pulse Ox 99.4 F 101 20 154/85 100 06/20/18 04:15 06/20/18 04:15 06/20/18 04:15 06/20/18 04:15 06/20/18 04:15 Exam: Gen: Vitals noted. Frail-appearing, does not respond to commands. HEENT: Normocephalic, atraumatic. Dry mucous membranes. Neck: Supple. No adenopathy. Cardiac: RRR, no murmur, +S1/S2 Pulmonary: CTA bilaterally, no wheezes, rales or rhonchi, equal chest expansion Abdomen: soft, nontender, no guarding Back: Nontender throughout. MSK: ROM intact, no joint swelling noted Extremities: no BLE edema, nontender calf, no cyanosis or clubbing. There is an ulcer that is wrapped on the left heel. Neuro: Patient is alert, non-communicative Psych: Does not speak or follow commands - Assessment and Plan (1) Severe sepsis Current Visit: Yes Status: Acute Assessment and Plan: Improving. Patient is DNR-CC Back to baseline mental status On admission, leukocytosis 34.5 with 14% bands, fever 103.6F, tachycardic, RR 30. CT abdomen without evidence of pyelonephritis. There is nonobstructing left nephrolithiasis, cholelithiasis with prominent gallbladder. No cholecystic stranding to indicate cholecystitis. Repeat lactic acid with improvement after 2.5L fluids and antibiotics: 3.1/4.4/ 8.8/9.3 BCx and UCx with Proteus, sensitive to Rocephin. Leukocytosis downtrending Sepsis likely secondary to UTI Serology +enterobacter and +proteus We will down-escalate antibiotics to Rocephin, per ID recommendations. Recheck labs tomorrow morning. Repeat BCx pending. Will discharge if negative. Continue wound care for decubitus ulcer PEG tube leaking, pending surgical recommendations (2) UTI (urinary tract infection) Current Visit: Yes Status: Acute Assessment and plan: Acute complicated cystitis, presumed ESBL E. Coli Patient has history of multiple ESBL infections Urinanalysis is positive for nitrites and leukocyte esterase Cultures sensitive to Rocephin. Will down-escalate antibiotics to rocephin Qualifiers: Urinary tract infection type: acute cystitis Hematuria presence: without hematuria Qualified Code(s): N30.00 - Acute cystitis without hematuria (3) Acute respiratory failure Current Visit: Yes Status: Acute Assessment and plan: Acute hypoxic respiratory failure Likely secondary to sepsis, tachycardia and increased demand No evidence of pneumonia at this time either clinically or on imaging We will continue to monitor, Provide supplemental O2 Qualifiers: Respiratory failure complication: hypoxia Qualified Code(s): J96.01 - Acute respiratory failure with hypoxia (4) Hypernatremia Current Visit: Yes Status: Acute Assessment and plan: Resolved Presents with sodium 149 which was elevated over past two days on labs as well Patient does get free water pushes per PEG at assisted however daughter is concerned that she has not been getting them Appears to be improving. Patient now tube feeding. Will decrease D5 1/2 fluids to 75mls/hour (5) JEANNIE (acute kidney injury) Current Visit: Yes Status: Acute Assessment and plan: Resolved Patient has no baseline chronic kidney disease Likely secondary to septic shock continue with maintanance fluids. Recheck BMP in am (6) Elevated troponin Current Visit: Yes Status: Acute Assessment and plan: Elevated troponin, 0.08 Secondary to demand ischemia in setting of septic shock (7) Dementia Current Visit: No Status: Chronic Assessment and plan: Poor mentation, unable to provide self care Qualifiers: Dementia type: unspecified type Dementia behavioral disturbance: without behavioral disturbance Qualified Code(s): F03.90 - Unspecified dementia without behavioral disturbance (8) Counseling regarding advanced care planning and goals of care Current Visit: Yes Status: Acute Assessment and plan: Patient has septic shock with severe volume depletion and intermittent hypotension. The patient's daughter is a retired critical care nurse, and states that she would like the patient to be DNR-CC, and refuses and advanced care including central lines, pressors, intubation. She requests that the patient receive aggressive antibiotics, fluid rescusitation, and labs to monitor progress, however she does not want anything more. Does not want intubation. Code status changed to DNR-CC per POA request. Palliative at bedside. Patient's daughter declined hospice at this time. DVT Prophylaxis: Heparin SubQ - Time Spent with Patient Total time spent is greater than 50% in coordination of care (as documented) at patient's floor/unit and/or counseling patient: Greater than 35 minutes Plan of Care Discussed with: patient Internal Medicine: Result - Labs CBC & Chem 7: 06/20/18 03:57 06/20/18 03:57 Labs: Short CBC 06/20/18 Range/Units 03:57 WBC 18.0 H (4.3-11.1) K/mcL Hgb 9.6 L (11.5-15.4) g/dL Hct 31.8 L (35.3-44.9) % Plt Count 213 (140-400) K/mcL Neutrophils # 14.9 H (1.6-8.9) K/mcL BMP 06/20/18 03:57 Sodium 144 Potassium 3.7 Chloride 112 H Carbon Dioxide 25 BUN 10 Creatinine 0.40 L Glucose 110 H Calcium 8.6 - ABG Interpretation ABG results: ABG ABG pH 7.42 pH Units (7.32-7.45) 06/17/18 09:58 ABG pCO2 34 mmHg (35-45) L 06/17/18 09:58 ABG pO2 417 mmHg (85-104) H 06/17/18 09:58 ABG O2 Saturation 100 % (95-98) H 06/17/18 09:58 PT/INR, D-dimer PT 16.6 Seconds (9.4-12.1) H 06/17/18 03:16 <Citlali Borjas - [facility] Filed: 06/20/18 14:31> (2) Dementia Qualifiers: Dementia type: unspecified type Dementia behavioral disturbance: without behavioral disturbance Qualified Code(s): F03.90 - Unspecified dementia without behavioral disturbance (5) UTI (urinary tract infection) Qualifiers: Urinary tract infection type: acute cystitis Hematuria presence: without hematuria Qualified Code(s): N30.00 - Acute cystitis without hematuria (7) Acute respiratory failure Qualifiers: Respiratory failure complication: hypoxia Qualified Code(s): J96.01 - Acute respiratory failure with hypoxia
[2018-06-20] MEDS: Meropenem 1,000 MG in Water for inj. (sterile) 20 ML 10 ML IVP SCH (07:48)
[2018-06-20] MEDS: Sucralfate 1 GM TABLET PO SCH ×2 (07:52→16:20)
[2018-06-20] MEDS: Sennosides 8.6 MG TABLET PO SCH (07:52)
[2018-06-20] MEDS: Aspirin Enteric Coated 81 MG Tablet PO SCH (07:52)
--- NOTE | 2018-06-20 10:16 | Event Note ---
Date of Encounter: 06/20/18 Time of Encounter: 10:15 Patient resting quietly. Appears to be responding to treatment with decreasing leukocytosis. Afebrile. ID consult reviewed, blood cultures were repeated this am. Will need IV atb on discharge. Daughter not at bedside during my visit. According to my visit with her this weekend, as long as her mother was responding to treatment, she wanted to continue present treatment for infections. She did not desire any hospice transition. She will return to [facility] upon discharge. Palliative currently not managing any symptoms and will sign off. Please call if needed.
[2018-06-20] MEDS ORDERED: Atropine 1% Opth Drops 100 DROP/5 ML BOTTLE SL PRN (13:15)
--- NOTE | 2018-06-20 13:27 | Infectious Disease Progress No ---
Date of Encounter: 06/20/18 Time of Encounter: 09:50 - Assessment and Plan (1) Severe sepsis Current Visit: Yes Status: Acute The patient had four SIRS criteria plus lactic acidosis and AMS. Likely secondary to UTI and bacteremia and possible PEG tube infection. Improved. Afebrile. WBC trending down. Tachypnea has improved. Continues to have tachycardia. Blood cultures drawn 06/16/18 x 2 set is positive for P. mirabilis. Repeat blood culture drawn 06/17/18 x 1 set is positive for GNR. Repeat blood cultures drawn 06/20/18 are pending x 2 sets. (2) Bacteremia due to Gram-negative bacteria Current Visit: Yes Status: Acute Causative organism: P. mirabilis. Source: likely UTI. Blood cultures drawn 06/16/18 x 2 set is positive for P. mirabilis. Repeat blood culture drawn 06/17/18 x 1 set is positive for GNR. Repeat blood cultures drawn 06/20/18 are pending x 2 sets. Discontinue meropenem. Start Rocephin 2 grams IV daily. Duration of treatment depends on the clinical picture, but likely a total of 14 days from the first set of negative blood cultures. Monitor renal function and dose-adjust antibiotics. (3) UTI (urinary tract infection) Current Visit: Yes Status: Acute Causative organism: P. mirabilis. Likely secondary to chronic indwelling morin catheter. Discontinue meropenem and start rocephin as stated above. Duration of treatment depends on the clinical picture, but likely 14 days. Switch out morin catheter if not already done. Qualifiers: Urinary tract infection type: acute cystitis Hematuria presence: without hematuria Qualified Code(s): N30.00 - Acute cystitis without hematuria (4) Leaking PEG tube Current Visit: Yes Status: Acute Foul-smelling drainage noted from around the PEG tube site. Get swab culture. Recommend GI to evaluate. (5) Decubitus ulcer of coccygeal region, stage 2 Current Visit: Yes Status: Acute Clinically does not appear infected. Recommend wound care to evaluate. Recommend aggressive offloading and Q2H turns. (6) Unstageable pressure ulcer of left heel Current Visit: No Status: Acute Location: left heel. Clinically does not appear infected. Recommend wound care to evaluate. May consider Podiatry to evaluate at some point. (7) Failure to thrive Current Visit: Yes Status: Acute Qualifiers: Failure to thrive age range: in adult Qualified Code(s): R62.7 - Adult failure to thrive (8) Advanced dementia Current Visit: Yes Status: Acute - Subjective Interval history: Patient seen and examined. No acute events noted overnight. No family noted at the bedside. Per nursing, patient has redness and drainage from around her PEG tube. Patient is awake, but appears agitated and does not follow commands or provide ROS information. Infect Dis PN-Objective Data - Labs CBC & Chem 7: 06/20/18 03:57 06/20/18 03:57 Labs: Laboratory Results - last 24 hr 06/19/18 06/19/18 06/19/18 07:39 11:17 16:03 WBC RBC Hgb Hct MCV MCH MCHC RDW Plt Count MPV Immature Gran % Seg Neutrophils % Lymphocytes % Monocytes % Eosinophils % Basophils % Neutrophils # Lymphocytes # Monocytes # Eosinophils # Basophils # Platelet Estimate Immature Plt Fraction Poikilocytosis Anisocytosis Microcytosis Tear Drop Cells Ovalocytes Sodium Potassium Chloride Carbon Dioxide BUN Creatinine Est GFR ( Amer) Est GFR (Non-Af Amer) BUN/Creatinine Ratio Glucose POC Glucose 153 H 124 H 121 H Calculated Osmolality Calcium 06/19/18 06/20/18 06/20/18 20:23 03:57 03:57 WBC 18.0 H RBC 4.75 Hgb 9.6 L Hct 31.8 L MCV 66.9 L MCH 20.2 L MCHC 30.2 L RDW 17.1 H Plt Count 213 MPV TNP Immature Gran % 1.1 Seg Neutrophils % 82.6 Lymphocytes % 7.3 Monocytes % 4.5 Eosinophils % 4.3 Basophils % 0.2 Neutrophils # 14.9 H Lymphocytes # 1.3 Monocytes # 0.8 Eosinophils # 0.8 H Basophils # 0.0 Platelet Estimate Normal Immature Plt Fraction 6.8 H Poikilocytosis 1+ A Anisocytosis 1+ A Microcytosis Present A Tear Drop Cells 1+ A Ovalocytes 1+ A Sodium 144 Potassium 3.7 Chloride 112 H Carbon Dioxide 25 BUN 10 Creatinine 0.40 L Est GFR ( Amer) > 60 Est GFR (Non-Af Amer) > 60 BUN/Creatinine Ratio 25 Glucose 110 H POC Glucose 108 H Calculated Osmolality 298 Calcium 8.6 Cultures: Cultures 06/20/18 09:13 Blood Culture - Preliminary Peripheral Venipuncture Culture is incubating and being continuously monitored for growth. Final report to follow. 06/20/18 09:18 Blood Culture - Preliminary Peripheral Venipuncture Culture is incubating and being continuously monitored for growth. Final report to follow. Exam - Constitutional Vitals: Temp Pulse Resp BP Pulse Ox 99.5 F 100 18 131/111 100 06/20/18 11:33 06/20/18 11:33 06/20/18 11:33 06/20/18 11:33 06/20/18 11:33 General appearance: no acute distress, thin, no febrile - Head Head exam: Present: atraumatic, normal inspection, normocephalic - ENT ENT exam: Present: mucous membranes moist - Neck Neck exam: Present: normal inspection - Respiratory Respiratory exam: Present: CTAB. Absent: rales, respiratory distress, rhonchi, wheezes - Cardiovascular Cardiovascular exam: Present: RRR, +S1, +S2 - GI/Abdominal GI/Abdominal exam: Present: normal bowel sounds, soft. Absent: distended, tenderness Additional comments: PEG tube noted with mild erythema and foul-smelling drainage from the insertion site. Morin catheter noted to be draining clear yellow urine. - Extremities Exam Extremities exam: Present: normal inspection. Absent: pedal edema Additional comments: Left foot dressing C/D/I. - Neurological Exam Neurological exam: Present: altered (Awake, moving all extremities, but does not follow commands or verbalize.), no focal deficits - Skin Skin exam: Present: dry, intact, normal color, warm Consult Discharge Plan - Plan Referrals: Wade Metcalf MD [Primary Care Provider] - (This patient is from [facility] no PCP appointment needed) - Attending Attestation I examined this patient and my medical decision-making was reviewed with the Resident Physician. I agree with the documented findings, disposition and treatment plan as described except to the extent set forth below.
[2018-06-20] MEDS ORDERED: Atropine Sulfate 1% 40 DROP/2 ML BOTTLE SL PRN (13:45)
--- NOTE | 2018-06-20 14:42 | General Surgery Consult Note ---
<Ellen Sandoval - Last Filed: 06/20/18 14:57> Date of Encounter: 06/20/18 Time of Encounter: 14:00 Assessment and Plan (1) Advanced dementia Current Visit: Yes Status: Chronic (2) Leaking PEG tube Current Visit: Yes Status: Acute A defect was found in the tip of the feeding tube and there was evidence of tube feed leaking The defect was removed and the tip reconnected- tube feeds were restarted Will observe for further leaking If continued leaking along the tube, will plan to exchange the tube on per Ellen Sandoval APRN Surgery will follow to assess progress and to further assess need for tube exchange History of Present Illness Consult date: 06/20/18 Reason for consult: other (Leaking peg tube) Requesting physician: Nacho Heath History of present illness: Ms. Mccain is an 88 year old female with Alzheimer's dementia. She presented to the ED from her nursing facility ([facility]) with her daughter. Complaints upon presentation include fevers and foul smelling urine for approximately 2 days duration and acute onset of shortness of breath. The patient was admitted to the hospitalist service and has been treated for UTI, sepsis and gram negative bacteremia. We have been contacted to see the patient regarding her leaking peg tube. The nurse reports that there is leaking along the tube since admission. Tolerating tube feeds without difficulty. No abdominal pain appreciated on exam. The last documented peg tube change was completed per Dr. Pack in November of 2015 in the outpatient surgery office. The patient is non-verbal and unable to provide any information. The information in the HPI was obtained from the nursing staff and the medical record. Past Med Surg Social Fam HX - Past Medical History Source: old records reviewed Medical history: dementia (Alzheimers), hyperlipidemia Additional medical history: hypernatremia, AMS, alzheimers Psychiatric history: anxiety, depression - Past Surgical History Surgical History: no surgical history Additional surgical history: Tubal ligation. AAA repair. Femoral Graft left. Peg Tube- last documented exchange 11/[address] Pack - Social History Smoking Status: Unknown if ever smoked Smokeless Tobacco Status: No Alcohol use: none Drug use: none Current living situation: [facility] Medications and Allergies Acetaminophen [Tylenol 650mg SUPP] 650 mg RC Q6H PRN 03/03/18 [History] Albuterol Neb [Proventil Neb] 2.5 mg IH Q2H PRN 03/03/18 [History] Aspirin Enteric Coated [Aspirin EC] 81 mg PO DAILY 03/03/18 [History] Atropine 1% Opth Drops 1 drop SL Q4H PRN 03/03/18 [History] Donepezil HCl [Aricept] 10 mg PO DAILY 03/03/18 [History] Ferrous Sulfate [Iron] 325 mg PO DAILY 03/03/18 [History] Loratadine [Allergy Relief] 10 mg PO DAILY PRN 03/03/18 [History] MORPHINE SUL Oral CONC [Roxanol Oral Conc] 0.25 ml SL Q4H PRN 03/03/18 [History] Sennosides [Senna] 8.6 mg PO DAILY 03/03/18 [History] Sucralfate [Carafate] 1 gm PO BID 03/03/18 [History] amLODIPine [Norvasc] 5 mg PO DAILY tablet 03/09/18 [Rx] 3 Allergy/AdvReac Type Severity Reaction Status Date / Time No Known Allergies Allergy Verified 06/19/18 10:46 Review of Systems ROS unobtainable: due to mental status All systems PM: The remainder of the systems were reviewed and are negative General Surgery Exam Initial Vital Signs Temp Pulse Resp BP Pulse Ox 103.6 F H 140 28 151/116 100 06/16/18 23:26 06/16/18 23:26 06/16/18 23:26 06/16/18 23:26 06/16/18 23:26 - General physical appearance well nourished, no distress, chronically ill, other (Patient resting comfortably in bed) - Eyes PERRL - ENT dry mucosa, atraumatic, normocephalic - Neck trachea midline - Respiratory normal respiratory effort, clear to auscultation, other (diminished bibasilar bases) - Cardiovascular Cardiovascular exam: Present: RRR, 15, 16 - Abdomen Abdomen general surgery: Present: bowel sounds present, soft, non tender, wound (Peg tube secure and tube feed infusing without difficulty, no surrounding erythema or induration; no grimace with palplation of abdomen) Hernia: Present: umbilical - Integumentary Integumentary general surgery: Present: warm and dry, other (Patient with documented coccyx and left heel ulcer (patient followed in wound care)) - Neurologic Present: confused, disoriented, memory loss - Musculoskeletal Present: other (severe deconditioning noted) - Psychiatric Psychiatric general surgery: Present: other (Patient nonverbal) Exam Initial Vital Signs Temp Pulse Resp BP Pulse Ox 103.6 F H 140 28 151/116 100 06/16/18 23:26 06/16/18 23:26 06/16/18 23:26 06/16/18 23:26 06/16/18 23:26 Results - Labs 06/20/18 03:57 06/20/18 03:57 Abnormal lab results WBC 18.0 K/mcL (4.3-11.1) H 06/20/18 03:57 Hgb 9.6 g/dL (11.5-15.4) L 06/20/18 03:57 Hct 31.8 % (35.3-44.9) L 06/20/18 03:57 MCV 66.9 fL (83.0-100.0) L 06/20/18 03:57 MCH 20.2 pg (28.0-33.3) L 06/20/18 03:57 MCHC 30.2 g/dL (31.6-35.5) L 06/20/18 03:57 RDW 17.1 % (11.5-14.5) H 06/20/18 03:57 Band Neutrophils % 16.0 % (0-4) H 06/17/18 03:16 Metamyelocytes % 4.0 % (0) H 06/17/18 03:16 Neutrophils # 14.9 K/mcL (1.6-8.9) H 06/20/18 03:57 Eosinophils # 0.8 K/mcL (0.0-0.6) H 06/20/18 03:57 Nucleated RBCs/100 WBC 0.1 /100 WBC (0) H 06/17/18 03:16 Toxic Vacuolation Present (Not Present) A 06/17/18 03:16 Large Platelets Present (Not Present) A 06/17/18 03:16 Immature Plt Fraction 6.8 % (1.1-6.1) H 06/20/18 03:57 Polychromasia 1+ (Not Present) A 06/17/18 03:16 Hypochromasia Present (Not Present) A 06/19/18 04:53 Poikilocytosis 1+ (Not Present) A 06/20/18 03:57 Anisocytosis 1+ (Not Present) A 06/20/18 03:57 Microcytosis Present (Not Present) A 06/20/18 03:57 Tear Drop Cells 1+ (Not Present) A 06/20/18 03:57 Ovalocytes 1+ (Not Present) A 06/20/18 03:57 Schistocytes 1+ (Not Present) A 06/19/18 04:53 PT 16.6 Seconds (9.4-12.1) H 06/17/18 03:16 ABG pCO2 34 mmHg (35-45) L 06/17/18 09:58 ABG pO2 417 mmHg (85-104) H 06/17/18 09:58 ABG O2 Saturation 100 % (95-98) H 06/17/18 09:58 VBG pH 7.21 pH Units (7.32-7.42) L 06/17/18 03:32 VBG pO2 114 mmHg (25-50) H 06/17/18 03:32 VBG HCO3 17 mEq/L (21-27) L 06/17/18 03:32 Chloride 112 mEq/L (98-107) H 06/20/18 03:57 Creatinine 0.40 mg/dL (0.60-1.20) L 06/20/18 03:57 Glucose 110 mg/dL (70-105) H 06/20/18 03:57 POC Glucose 108 mg/dL (70-99) H 06/19/18 20:23 Lactic Acid 3.1 mmol/L (0.5-2.2) H 06/17/18 22:14 Troponin I 0.07 ng/mL (< 0.04) H* 06/17/18 09:19 B-Natriuretic Peptide 372 pg/mL (Less than 100) H 06/16/18 23:55 Serum Total Protein 5.3 g/dL (6.4-8.9) L 06/17/18 03:16 Albumin 2.6 g/dL (3.5-5.7) L 06/17/18 03:16 Albumin/Globulin Ratio 1.0 (1.1-2.2) L 06/17/18 03:16 Urine pH >=9.0 pH Units (5.0-8.0) H 06/16/18 23:49 Urine Protein 100 mg/dL (Neg-Trace) H 06/16/18 23:49 Urine Nitrite Positive (Negative) A 06/16/18 23:49 Ur Leukocyte Esterase Moderate (Negative) H 06/16/18 23:49 Urine Microscopic WBC 3-5 per hpf (0-3) H 06/16/18 23:49 Urine Bacteria Many per hpf (None-Few) H 06/16/18 23:49 Ur Culture Indicated? YES (NO) A 06/16/18 23:49 Enterobacteriac sp PCR DETECTED (Not Detect) A 06/16/18 23:55 Proteus species (PCR) DETECTED (Not Detect) A 06/16/18 23:55 Diabetes panel 06/20/18 Range/Units 03:57 Sodium 144 (136-145) mEq/L Potassium 3.7 (3.5-5.1) mEq/L Chloride 112 H (98-107) mEq/L Carbon Dioxide 25 (23-29) mEq/L BUN 10 (8-23) mg/dL Creatinine 0.40 L (0.60-1.20) mg/dL Glucose 110 H (70-105) mg/dL Calcium 8.6 (8.6-10.3) mg/dL Calcium panel 06/20/18 Range/Units 03:57 Calcium 8.6 (8.6-10.3) mg/dL Pituitary panel 06/20/18 Range/Units 03:57 Sodium 144 (136-145) mEq/L Potassium 3.7 (3.5-5.1) mEq/L Chloride 112 H (98-107) mEq/L Carbon Dioxide 25 (23-29) mEq/L BUN 10 (8-23) mg/dL Creatinine 0.40 L (0.60-1.20) mg/dL Glucose 110 H (70-105) mg/dL Calcium 8.6 (8.6-10.3) mg/dL Adrenal panel 06/20/18 Range/Units 03:57 Sodium 144 (136-145) mEq/L Potassium 3.7 (3.5-5.1) mEq/L Chloride 112 H (98-107) mEq/L Carbon Dioxide 25 (23-29) mEq/L BUN 10 (8-23) mg/dL Creatinine 0.40 L (0.60-1.20) mg/dL Glucose 110 H (70-105) mg/dL Calcium 8.6 (8.6-10.3) mg/dL All other labs normal. - Imaging Additional studies: Chest X-Ray 06/16/18 23:32 IMPRESSION: No acute process. D/ / Donavon Arellano MD / Donavon Arellano MD Interpreting Provider: Donavon Arellano MD Abdomen/Pelvis CT 06/17/18 11:07 IMPRESSION: 1. Wall thickening of the urinary bladder compatible with cystitis. No evidence of pyelonephritis 2. Nonobstructing left nephrolithiasis 3. Cholelithiasis, with prominent gallbladder. No cholecystic stranding to indicate cholecystitis. Correlate with any symptoms referable to the right upper quadrant D/ / Sonny Pak MD / Sonny Pak MD Interpreting Provider: Sonny Pak MD Consult Discharge Plan - Plan Referrals: Wade Metcalf MD [Primary Care Provider] - (This patient is from [facility] no PCP appointment needed) - Attending Attestation For this encounter, I have reviewed the MUD ANAL[employer]IS SUPERVISOR or PA documentation, treatment plan, and medical decision making; and I have had face to face time with this patient. <Yosi Young - Last Filed: 06/20/18 17:27> Date of Encounter: 06/20/18 Assessment and Plan (1) Advanced dementia Current Visit: Yes Status: Chronic (2) Leaking PEG tube Current Visit: Yes Status: Acute Review of Systems All systems PM: The remainder of the systems were reviewed and are negative General Surgery Exam Initial Vital Signs Temp Pulse Resp BP Pulse Ox 103.6 F H 140 28 151/116 100 06/16/18 23:26 06/16/18 23:26 06/16/18 23:26 06/16/18 23:26 06/16/18 23:26 Exam Initial Vital Signs Temp Pulse Resp BP Pulse Ox 103.6 F H 140 28 151/116 100 06/16/18 23:26 06/16/18 23:26 06/16/18 23:26 06/16/18 23:26 06/16/18 23:26 Results - Labs 06/20/18 03:57 06/20/18 03:57 Abnormal lab results WBC 18.0 K/mcL (4.3-11.1) H 06/20/18 03:57 Hgb 9.6 g/dL (11.5-15.4) L 06/20/18 03:57 Hct 31.8 % (35.3-44.9) L 06/20/18 03:57 MCV 66.9 fL (83.0-100.0) L 06/20/18 03:57 MCH 20.2 pg (28.0-33.3) L 06/20/18 03:57 MCHC 30.2 g/dL (31.6-35.5) L 06/20/18 03:57 RDW 17.1 % (11.5-14.5) H 06/20/18 03:57 Band Neutrophils % 16.0 % (0-4) H 06/17/18 03:16 Metamyelocytes % 4.0 % (0) H 06/17/18 03:16 Neutrophils # 14.9 K/mcL (1.6-8.9) H 06/20/18 03:57 Eosinophils # 0.8 K/mcL (0.0-0.6) H 06/20/18 03:57 Nucleated RBCs/100 WBC 0.1 /100 WBC (0) H 06/17/18 03:16 Toxic Vacuolation Present (Not Present) A 06/17/18 03:16 Large Platelets Present (Not Present) A 06/17/18 03:16 Immature Plt Fraction 6.8 % (1.1-6.1) H 06/20/18 03:57 Polychromasia 1+ (Not Present) A 06/17/18 03:16 Hypochromasia Present (Not Present) A 06/19/18 04:53 Poikilocytosis 1+ (Not Present) A 06/20/18 03:57 Anisocytosis 1+ (Not Present) A 06/20/18 03:57 Microcytosis Present (Not Present) A 06/20/18 03:57 Tear Drop Cells 1+ (Not Present) A 06/20/18 03:57 Ovalocytes 1+ (Not Present) A 06/20/18 03:57 Schistocytes 1+ (Not Present) A 06/19/18 04:53 PT 16.6 Seconds (9.4-12.1) H 06/17/18 03:16 ABG pCO2 34 mmHg (35-45) L 06/17/18 09:58 ABG pO2 417 mmHg (85-104) H 06/17/18 09:58 ABG O2 Saturation 100 % (95-98) H 06/17/18 09:58 VBG pH 7.21 pH Units (7.32-7.42) L 06/17/18 03:32 VBG pO2 114 mmHg (25-50) H 06/17/18 03:32 VBG HCO3 17 mEq/L (21-27) L 06/17/18 03:32 Chloride 112 mEq/L (98-107) H 06/20/18 03:57 Creatinine 0.40 mg/dL (0.60-1.20) L 06/20/18 03:57 Glucose 110 mg/dL (70-105) H 06/20/18 03:57 POC Glucose 108 mg/dL (70-99) H 06/19/18 20:23 Lactic Acid 3.1 mmol/L (0.5-2.2) H 06/17/18 22:14 Troponin I 0.07 ng/mL (< 0.04) H* 06/17/18 09:19 B-Natriuretic Peptide 372 pg/mL (Less than 100) H 06/16/18 23:55 Serum Total Protein 5.3 g/dL (6.4-8.9) L 06/17/18 03:16 Albumin 2.6 g/dL (3.5-5.7) L 06/17/18 03:16 Albumin/Globulin Ratio 1.0 (1.1-2.2) L 06/17/18 03:16 Urine pH >=9.0 pH Units (5.0-8.0) H 06/16/18 23:49 Urine Protein 100 mg/dL (Neg-Trace) H 06/16/18 23:49 Urine Nitrite Positive (Negative) A 06/16/18 23:49 Ur Leukocyte Esterase Moderate (Negative) H 06/16/18 23:49 Urine Microscopic WBC 3-5 per hpf (0-3) H 06/16/18 23:49 Urine Bacteria Many per hpf (None-Few) H 06/16/18 23:49 Ur Culture Indicated? YES (NO) A 06/16/18 23:49 Enterobacteriac sp PCR DETECTED (Not Detect) A 06/16/18 23:55 Proteus species (PCR) DETECTED (Not Detect) A 06/16/18 23:55 Diabetes panel 06/20/18 Range/Units 03:57 Sodium 144 (136-145) mEq/L Potassium 3.7 (3.5-5.1) mEq/L Chloride 112 H (98-107) mEq/L Carbon Dioxide 25 (23-29) mEq/L BUN 10 (8-23) mg/dL Creatinine 0.40 L (0.60-1.20) mg/dL Glucose 110 H (70-105) mg/dL Calcium 8.6 (8.6-10.3) mg/dL Calcium panel 06/20/18 Range/Units 03:57 Calcium 8.6 (8.6-10.3) mg/dL Pituitary panel 06/20/18 Range/Units 03:57 Sodium 144 (136-145) mEq/L Potassium 3.7 (3.5-5.1) mEq/L Chloride 112 H (98-107) mEq/L Carbon Dioxide 25 (23-29) mEq/L BUN 10 (8-23) mg/dL Creatinine 0.40 L (0.60-1.20) mg/dL Glucose 110 H (70-105) mg/dL Calcium 8.6 (8.6-10.3) mg/dL Adrenal panel 06/20/18 Range/Units 03:57 Sodium 144 (136-145) mEq/L Potassium 3.7 (3.5-5.1) mEq/L Chloride 112 H (98-107) mEq/L Carbon Dioxide 25 (23-29) mEq/L BUN 10 (8-23) mg/dL Creatinine 0.40 L (0.60-1.20) mg/dL Glucose 110 H (70-105) mg/dL Calcium 8.6 (8.6-10.3) mg/dL All other labs normal. - Attending Attestation The patient is seen and evaluated and discussed with the clinical nurse practitioner. Initial repair on the feeding tube has been made. We will reevaluate tube tomorrow to see if this is a adequate repair. If not, we can remove the PEG tube and replace it with a Bard tri-funnel replacement catheter Yosi Young MD FACS
[2018-06-20] MEDS: cefTRIAXone 2,000 MG in Water for inj. (sterile) 20 ML 20 ML IVP SCH (16:43)
[2018-06-21 04:44] LABS: Nucleated Red Blood Cells 0.1 /100 WBC (0); Red Cell Distribution Width 17.1 % (11.5-14.5)
[2018-06-21 04:46] LABS: Basophils # 0.1 K/mcL (0.0-0.2); Basophils % 0.3 %; Eosinophils # 0.7 K/mcL (0.0-0.6); Eosinophils % 4.3 %; Hematocrit 31.5 % (35.3-44.9); Hemoglobin 9.8 g/dL (11.5-15.4); Immature Granulocytes % 2.3 % (0-4); Immature Platelets 7.5 % (1.1-6.1); Lymphocytes # 1.5 K/mcL (0.6-4.6); Lymphocytes % 9.5 %; Mean Corpuscular HGB Conc 31.1 g/dL (31.6-35.5); Mean Corpuscular Hemoglobin 20.4 pg (28.0-33.3); Mean Corpuscular Volume 65.6 fL (83.0-100.0); Mean Platelet Volume 11.4 fL (9.4-12.4); Monocytes % 5.2 %; Neutrophils # 12.7 K/mcL (1.6-8.9); Platelet Count 231 K/mcL (140-400); Segmented Neutrophils % 78.4 %
[2018-06-21 05:01] LABS: BUN/Creatinine Ratio 24 (6-26); Blood Urea Nitrogen 9 mg/dL (8-23); Calcium 9.1 mg/dL (8.6-10.3); Carbon Dioxide 29 mEq/L (23-29); Chloride 110 mEq/L (98-107); Glucose 116 mg/dL (70-105); Osmolality,Calculated 300 (280-300); Potassium 3.8 mEq/L (3.5-5.1); Sodium 145 mEq/L (136-145); eGFR For Non-African Americans > 60 (> 60)
[2018-06-21 05:04] LABS: Monocytes # 0.8 K/mcL (0.0-1.3)
[2018-06-21 05:15] LABS: Anisocytosis 1+ (Not Present); Hypochromasia Present (Not Present); Microcytosis Present (Not Present); Platelet Estimate Normal (Normal); Reactive Lymphocytes Present (Not Present)
[2018-06-21] MEDS: Sucralfate 1 GM TABLET PO SCH ×2 (06:03→15:51)
[2018-06-21] MEDS: *HR* Heparin 5,000 UNIT/ML VIAL SQ SCH ×3 (06:03→20:11)
--- NOTE | 2018-06-21 08:50 | Internal Med Progress Note ---
<Citlali Borjas - Last Filed: 06/21/18 13:31> Hospitalist Progress Note - Encounter Date of Encounter: 06/21/18 - Exam Vitals: Temp Pulse Resp BP Pulse Ox 97.7 F 101 18 159/86 10 06/21/18 11:36 06/21/18 13:00 06/21/18 13:00 06/21/18 11:36 06/21/18 13:00 - Assessment and Plan (1) Hypernatremia Current Visit: Yes Status: Acute (2) Dementia Current Visit: No Status: Chronic (3) DVT prophylaxis Current Visit: No Status: Acute (4) Counseling regarding advanced care planning and goals of care Current Visit: Yes Status: Acute (5) UTI (urinary tract infection) Current Visit: Yes Status: Acute (6) Elevated troponin Current Visit: Yes Status: Acute (7) Acute respiratory failure Current Visit: Yes Status: Acute (8) JEANNIE (acute kidney injury) Current Visit: Yes Status: Acute (9) Septic shock Current Visit: Yes Status: Acute - Time Spent with Patient Total time spent is greater than 50% in coordination of care (as documented) at patient's floor/unit and/or counseling patient: Internal Medicine: Result - Labs CBC & Chem 7: 06/21/18 04:31 06/21/18 04:31 Labs: Short CBC 06/21/18 Range/Units 04:31 WBC 16.2 H (4.3-11.1) K/mcL Hgb 9.8 L (11.5-15.4) g/dL Hct 31.5 L (35.3-44.9) % Plt Count 231 (140-400) K/mcL Neutrophils # 12.7 H (1.6-8.9) K/mcL BMP 06/21/18 04:31 Sodium 145 Potassium 3.8 Chloride 110 H Carbon Dioxide 29 BUN 9 Creatinine 0.37 L Glucose 116 H Calcium 9.1 - ABG Interpretation ABG results: ABG ABG pH 7.42 pH Units (7.32-7.45) 06/17/18 09:58 ABG pCO2 34 mmHg (35-45) L 06/17/18 09:58 ABG pO2 417 mmHg (85-104) H 06/17/18 09:58 ABG O2 Saturation 100 % (95-98) H 06/17/18 09:58 PT/INR, D-dimer PT 16.6 Seconds (9.4-12.1) H 06/17/18 03:16 Consult Discharge Plan - Plan Referrals: Wade Metcalf MD [Primary Care Provider] - (This patient is from [facility] no PCP appointment needed) - Attending Attestation I examined this patient and my medical decision-making was reviewed with the Resident Physician Dr Dewey. I agree with the documented findings, disposition and treatment plan as described except to the extent set forth below /addl details below Ms Mccain was admitted with altered mental status and severe sepsis. She has a hx os ESBL UTIs and + bacteremia here. ID has been following, most recent bl cxs remain +, suspected source is UTI. Awaiting negative cxs to determine abx length then will return to [facility]. Awake, alert, mumbling speech and more alert today. No family present at bedside. Unable to obtain further ros or hpi given given dementia. Does not answer questions or follow commands. gen- alert, awake,appears stated age cv- reg rate and rhythm, normal s1,s2, no murmurs appreciated, no le edema, no jvd lungs- ctabl, no wheezing, rhonchi or crackles, normal resp effort on ra abd- soft, not apparently tender, no guarding or grimace,non distended, +bs neuro more Alert, eyes open, pupils equal round and eom appear intact, does not follow commands, no focal deficits can be appreciated with spontaneous movement of upper ext noted Severe Sepsis likely 2/2 UTI with gnr bacteremia, improving, treatment as below -wound care following for stage II sacral decub that does not appear to be source at this time -leakage around peg site, consult to surgery, the peg site does not show signs of infection Proteus Mirabilis UTI, with Chronic Morin catheter, clinically unable to determine if related to each other -ID following for ESBL hx, de escalated abx from redd to rocephin 06/20 given ucx sensitivities, morin exchanged this admit GNR bacteremia, suspect source 06/16 bl cxs + proteus 06/17 bl cxs + proteus 06/20 bl cx ngtd -cont abx as above, will need 2 w abx from first neg cxs -fu id recs Advanced Dementia- re orient as needed, cont home meds dispo- she will dc back to [facility] once confirm abx duration, will need RX to CM prior to dc to arrange <Miguel Dewey - Last Filed: 06/21/18 14:59> Hospitalist Progress Note - Encounter Date of Encounter: 06/21/18 Time of Encounter: 08:47 - Subjective Interval History: Patient is alert, but is non-verbal and does not answer questions. Unable to obtain ROS. Does not appear in distress. - Exam Vitals: Temp Pulse Resp BP Pulse Ox 98.1 F 97 18 144/97 100 06/21/18 07:27 06/21/18 07:27 06/21/18 07:27 06/21/18 07:27 06/21/18 07:27 Exam: Gen: Vitals noted. Frail-appearing, does not respond to commands. alert, non- communicative HEENT: Normocephalic, atraumatic Neck: Supple, trachea midline, no lymphadenopathy Cardiovascular: RRR, +S1 & S2, no murmurs, rubs, or gallops Lungs: CTAB, no wheezes, rales, rhonchi Abdomen: soft, nontender, no guarding Back: Nontender throughout. Extremities: no BLE edema, nontender calf, no cyanosis or clubbing. Left heel ulcer is wrapped Psych: Does not speak or follow commands - Assessment and Plan (1) Severe sepsis Current Visit: Yes Status: Acute Assessment and Plan: On admission, patient met 4 SIRS criteria + lactic acidosis, AMS - Potential sources: UTI, bacteremia, possible PEG tube infection. - Serology +enterobacter and +proteus - Blood CX 06/16/18 x 2: P. mirabilis - Repeat blood CX drawn 06/17/18 x 1 +GNR - Repeat blood CX drawn 06/20/18 pending x2 Plan: - Continue Rocephin 2g IV q24 (started 06/20; day 2); day 5 total of ABX - Patient will require 14 days of ABX from first negative CX (2) UTI (urinary tract infection) Current Visit: Yes Status: Acute Assessment and Plan: Acute complicated cystitis - Patient has history of multiple ESBL infections - UA was positive for nitrites and leukocyte esterase - Urine CX sensitive to Rocephin - Continue ABX as above (3) Leaking PEG tube Current Visit: Yes Status: Resolved Assessment and Plan: - A defect was found in tip of feeding tube with evidence of tube feed leaking - Defect was removed; the tip reconnected- tube feeds were restarted - General surgery consulted; plans to observe for further leaks - If continued leaking along the tube, surgery will exchange tube (4) Decubitus ulcer of coccygeal region, stage 2 Current Visit: Yes Status: Acute Assessment and Plan: - No evidence of infection at this time - Continue wound care (5) Unstageable pressure ulcer of left heel Current Visit: No Status: Acute Assessment and Plan: - No evidence of infection at this time - Continue wound care (6) Dementia Current Visit: No Status: Chronic Assessment and Plan: - Poor mentation, unable to provide self care DVT Prophylaxis: Heparin SubQ - Time Spent with Patient Total time spent is greater than 50% in coordination of care (as documented) at patient's floor/unit and/or counseling patient: less than 15 minutes Internal Medicine: Result - Labs CBC & Chem 7: 06/21/18 04:31 06/21/18 04:31 Labs: Short CBC 06/21/18 Range/Units 04:31 WBC 16.2 H (4.3-11.1) K/mcL Hgb 9.8 L (11.5-15.4) g/dL Hct 31.5 L (35.3-44.9) % Plt Count 231 (140-400) K/mcL Neutrophils # 12.7 H (1.6-8.9) K/mcL BMP 06/21/18 04:31 Sodium 145 Potassium 3.8 Chloride 110 H Carbon Dioxide 29 BUN 9 Creatinine 0.37 L Glucose 116 H Calcium 9.1 - ABG Interpretation ABG results: ABG ABG pH 7.42 pH Units (7.32-7.45) 06/17/18 09:58 ABG pCO2 34 mmHg (35-45) L 06/17/18 09:58 ABG pO2 417 mmHg (85-104) H 06/17/18 09:58 ABG O2 Saturation 100 % (95-98) H 06/17/18 09:58 PT/INR, D-dimer PT 16.6 Seconds (9.4-12.1) H 06/17/18 03:16 <Citlali Borjas - Last Filed: 06/21/18 13:31> (2) Dementia Qualifiers: Dementia type: unspecified type Dementia behavioral disturbance: without behavioral disturbance Qualified Code(s): F03.90 - Unspecified dementia without behavioral disturbance (5) UTI (urinary tract infection) Qualifiers: Urinary tract infection type: acute cystitis Hematuria presence: without hematuria Qualified Code(s): N30.00 - Acute cystitis without hematuria (7) Acute respiratory failure Qualifiers: Respiratory failure complication: hypoxia Qualified Code(s): J96.01 - Acute respiratory failure with hypoxia <Miguel Dewey - Last Filed: 06/21/18 14:59> (2) UTI (urinary tract infection) Qualifiers: Urinary tract infection type: acute cystitis Hematuria presence: without hematuria Qualified Code(s): N30.00 - Acute cystitis without hematuria (6) Dementia Qualifiers: Dementia type: unspecified type Dementia behavioral disturbance: without behavioral disturbance Qualified Code(s): F03.90 - Unspecified dementia without behavioral disturbance
[2018-06-21] MEDS: Aspirin Enteric Coated 81 MG Tablet PO SCH (09:39)
[2018-06-21] MEDS: Sennosides 8.6 MG TABLET PO SCH (09:39)
--- NOTE | 2018-06-21 10:22 | Infectious Disease Progress No ---
Date of Encounter: 06/21/18 Time of Encounter: 10:20 - Assessment and Plan (1) Severe sepsis Current Visit: Yes Status: Acute The patient had four SIRS criteria plus lactic acidosis and AMS. Likely secondary to UTI and bacteremia and possible PEG tube infection. Improved. Afebrile. WBC trending down. Tachypnea has improved. Continues to have tachycardia. Blood cultures drawn 06/16/18 x 2 set is positive for P. mirabilis. Repeat blood culture drawn 06/17/18 x 1 set is positive for P. mirabilis. Repeat blood cultures drawn 06/20/18 are pending x 2 sets. (2) Bacteremia due to Gram-negative bacteria Current Visit: Yes Status: Acute Causative organism: P. mirabilis. Source: likely UTI. Blood cultures drawn 06/16/18 x 2 set is positive for P. mirabilis. Repeat blood culture drawn 06/17/18 x 1 set is positive for P. mirabilis. Repeat blood cultures drawn 06/20/18 are pending x 2 sets. Continue Rocephin 2 grams IV daily. Duration of treatment depends on the clinical picture, but likely a total of 14 days from the first set of negative blood cultures. Monitor renal function and dose-adjust antibiotics. (3) UTI (urinary tract infection) Current Visit: Yes Status: Acute Causative organism: P. mirabilis. Likely secondary to chronic indwelling morin catheter. Continue rocephin as stated above. Duration of treatment depends on the clinical picture, but likely 14 days. Switch out morin catheter if not already done. Qualifiers: Urinary tract infection type: acute cystitis Hematuria presence: without hematuria Qualified Code(s): N30.00 - Acute cystitis without hematuria (4) Leaking PEG tube Current Visit: Yes Status: Resolved General surgery consulted. No longer leaking. (5) Decubitus ulcer of coccygeal region, stage 2 Current Visit: Yes Status: Acute Clinically does not appear infected. Wound care to evaluate. Recommend aggressive offloading and Q2H turns. (6) Unstageable pressure ulcer of left heel Current Visit: No Status: Acute Location: left heel. Clinically does not appear infected. Wound care to evaluate. May consider Podiatry to evaluate at some point. (7) Failure to thrive Current Visit: Yes Status: Acute Qualifiers: Failure to thrive age range: in adult Qualified Code(s): R62.7 - Adult failure to thrive (8) Advanced dementia Current Visit: Yes Status: Chronic - Subjective Interval history: Patient seen and examined. No acute events noted overnight. No family noted at the bedside. Per nursing, general surgery came and fixed the patient's leaking PEG tube. Wound care has been in to evaluate the patient's decubitus ulcers. Tolerating tube feed well. Patient is awake, but appears agitated and does not follow commands or provide ROS information, but is at baseline per nursing. Infect Dis PN-Objective Data - Labs CBC & Chem 7: 06/21/18 04:31 06/21/18 04:31 Labs: Laboratory Results - last 24 hr 06/20/18 06/20/18 06/20/18 07:24 11:30 16:17 WBC RBC Hgb Hct MCV MCH MCHC RDW Plt Count MPV Immature Gran % Seg Neutrophils % Lymphocytes % Monocytes % Eosinophils % Basophils % Neutrophils # Lymphocytes # Monocytes # Eosinophils # Basophils # Nucleated RBCs/100 WBC Reactive Lymphocytes Platelet Estimate Immature Plt Fraction Hypochromasia Anisocytosis Microcytosis Sodium Potassium Chloride Carbon Dioxide BUN Creatinine Est GFR ( Amer) Est GFR (Non-Af Amer) BUN/Creatinine Ratio Glucose POC Glucose 114 H 107 H 103 H Calculated Osmolality Calcium 06/20/18 06/21/18 06/21/18 21:26 01:05 04:31 WBC 16.2 H RBC 4.80 Hgb 9.8 L Hct 31.5 L MCV 65.6 L MCH 20.4 L MCHC 31.1 L RDW 17.1 H Plt Count 231 MPV 11.4 Immature Gran % 2.3 Seg Neutrophils % 78.4 Lymphocytes % 9.5 Monocytes % 5.2 Eosinophils % 4.3 Basophils % 0.3 Neutrophils # 12.7 H Lymphocytes # 1.5 Monocytes # 0.8 Eosinophils # 0.7 H Basophils # 0.1 Nucleated RBCs/100 WBC 0.1 H Reactive Lymphocytes Present A Platelet Estimate Normal Immature Plt Fraction 7.5 H Hypochromasia Present A Anisocytosis 1+ A Microcytosis Present A Sodium Potassium Chloride Carbon Dioxide BUN Creatinine Est GFR ( Amer) Est GFR (Non-Af Amer) BUN/Creatinine Ratio Glucose POC Glucose 100 H 112 H Calculated Osmolality Calcium 06/21/18 04:31 WBC RBC Hgb Hct MCV MCH MCHC RDW Plt Count MPV Immature Gran % Seg Neutrophils % Lymphocytes % Monocytes % Eosinophils % Basophils % Neutrophils # Lymphocytes # Monocytes # Eosinophils # Basophils # Nucleated RBCs/100 WBC Reactive Lymphocytes Platelet Estimate Immature Plt Fraction Hypochromasia Anisocytosis Microcytosis Sodium 145 Potassium 3.8 Chloride 110 H Carbon Dioxide 29 BUN 9 Creatinine 0.37 L Est GFR ( Amer) > 60 Est GFR (Non-Af Amer) > 60 BUN/Creatinine Ratio 24 Glucose 116 H POC Glucose Calculated Osmolality 300 Calcium 9.1 Cultures: Cultures 06/20/18 09:13 Blood Culture - Preliminary Peripheral Venipuncture Culture is incubating and being continuously monitored for growth. Final report to follow. 06/20/18 09:18 Blood Culture - Preliminary Peripheral Venipuncture Culture is incubating and being continuously monitored for growth. Final report to follow. Exam - Constitutional Vitals: Temp Pulse Resp BP Pulse Ox 98.1 F 97 18 144/97 100 06/21/18 07:27 06/21/18 07:27 06/21/18 07:27 06/21/18 07:27 06/21/18 07:27 General appearance: no acute distress, thin, no cooperative - Head Head exam: Present: atraumatic, normal inspection, normocephalic - Eye Eye exam: Present: normal appearance, PERRL Pupils: Present: normal accommodation - ENT ENT exam: Present: mucous membranes moist - Neck Neck exam: Present: normal inspection - Respiratory Respiratory exam: Present: CTAB. Absent: rales, respiratory distress, rhonchi, wheezes - Cardiovascular Cardiovascular exam: Present: +S1, +S2, tachycardia. Absent: irregular rhythm - GI/Abdominal GI/Abdominal exam: Present: normal bowel sounds, soft. Absent: distended, tenderness Additional comments: PEG tube noted with tube feeds infusing. No drainage noted around the insertion site at this time. Morin catheter noted to be draining clear yellow urine. - Extremities Exam Extremities exam: Absent: normal inspection (Stage II ulcer noted to the left heel. Wound bed is dry with eschar. No surrounding erythema, warmth, drainage, or fluctuance noted.) - Back Exam Additional comments: Stage II decubitus ulcer noted to the coccyx with beefy red wound bed. No purulence or foul odor noted. No surrounding erthema or fluctuance noted. - Neurological Exam Neurological exam: Present: altered (Awake, but does not follow commands or attempt to communicate verbally.), no focal deficits (MOLINA x 4 spontaneously.) - Psychiatric Psychiatric exam: Present: normal affect, normal mood - Skin Skin exam: Present: dry, intact, normal color, warm Consult Discharge Plan - Plan Referrals: Wade Metcalf MD [Primary Care Provider] - (This patient is from [facility] no PCP appointment needed) - Attending Attestation I examined this patient and my medical decision-making was reviewed with the Resident Physician. I agree with the documented findings, disposition and treatment plan as described except to the extent set forth below.
[2018-06-21] MEDS: D5% in 0.45% NACL 1,000 ML IVC SCH (10:55)
--- NOTE | 2018-06-21 11:28 | Event Note ---
Date of Encounter: 06/21/18 Time of Encounter: 10:45 The patient's PEG tube was reexamined today. After repair of the tube yesterday , there is no evidence of any further leaking overnight. The PEG tube is functional and tube feeds are infusing at 50 ML's per hour. The PEG tube site is clean and dry. Surgery will sign off at this time. Thank you for allowing us to participate in the care of this patient. Please call with any further questions or concerns.
[2018-06-21] MEDS: cefTRIAXone 2,000 MG in Water for inj. (sterile) 20 ML 20 ML IVP SCH (15:48)
--- NOTE | 2018-06-22 11:59 | Internal Med Progress Note ---
<Citlali Borjas - Last Filed: 06/22/18 13:18> Hospitalist Progress Note - Exam Vitals: Temp Pulse Resp BP Pulse Ox 97.9 F 101 16 138/86 100 06/21/18 23:05 06/21/18 23:05 06/21/18 23:05 06/21/18 23:05 06/21/18 23:05 - Assessment and Plan (1) Hypernatremia Current Visit: Yes Status: Acute (2) Dementia Current Visit: No Status: Chronic (3) DVT prophylaxis Current Visit: No Status: Acute (4) Counseling regarding advanced care planning and goals of care Current Visit: Yes Status: Acute (5) UTI (urinary tract infection) Current Visit: Yes Status: Acute (6) Elevated troponin Current Visit: Yes Status: Acute (7) Acute respiratory failure Current Visit: Yes Status: Acute (8) JEANNIE (acute kidney injury) Current Visit: Yes Status: Acute (9) Septic shock Current Visit: Yes Status: Acute - Time Spent with Patient Total time spent is greater than 50% in coordination of care (as documented) at patient's floor/unit and/or counseling patient: Internal Medicine: Result - Labs CBC & Chem 7: 06/21/18 04:31 06/21/18 04:31 - ABG Interpretation ABG results: ABG ABG pH 7.42 pH Units (7.32-7.45) 06/17/18 09:58 ABG pCO2 34 mmHg (35-45) L 06/17/18 09:58 ABG pO2 417 mmHg (85-104) H 06/17/18 09:58 ABG O2 Saturation 100 % (95-98) H 06/17/18 09:58 PT/INR, D-dimer PT 16.6 Seconds (9.4-12.1) H 06/17/18 03:16 Consult Discharge Plan - Plan Referrals: Wade Metcalf MD [Primary Care Provider] - (This patient is from [facility] no PCP appointment needed) - Attending Attestation I examined this patient and my medical decision-making was reviewed with the Resident Physician Dr Heath. I agree with the documented findings, disposition and treatment plan as described except to the extent set forth below/addl details below Ms Mccain was admitted with altered mental status and severe sepsis. She has a hx os ESBL UTIs and + bacteremia here. ID has been following, most recent bl cxs remain +, suspected source is UTI. Awaiting negative cxs to determine abx length then will return to [facility]. Awake, alert, non verbal. Comfortable appearing. RN at bedside. No reported overnight events. ros and hpi limited by dementia gen- alert, awake,appears stated age cv- reg rate and rhythm, normal s1,s2, no murmurs appreciated, no le edema, no jvd lungs- ctabl, no wheezing, rhonchi or crackles, normal resp effort on ra abd- soft, not apparently tender, no guarding or grimace,non distended, +bs gu- morin cath with clear yellow urine neuro Alert, eyes open, pupils equal round and eom appear intact, does not follow commands, no focal deficits can be appreciated with spontaneous movement of upper ext noted Severe Sepsis likely 2/2 UTI with gnr bacteremia, improving, treatment as below -wound care following for stage II sacral decub that does not appear to be source at this time -leakage around peg site, consult to surgery, the peg site does not show signs of infection Proteus Mirabilis UTI, with Chronic Morin catheter, clinically unable to determine if related to each other -ID following for ESBL hx, de escalated abx from redd to rocephin 06/20 given ucx sensitivities, morin exchanged this admit GNR bacteremia, suspect source 06/16 bl cxs + proteus 06/17 bl cxs + proteus 06/20 bl cx ngtd -cont abx as above, will need 2 w abx from first neg cxs Advanced Dementia- re orient as needed, cont home meds dispo- she will dc back to [facility] once confirm abx duration, will need RX to CM prior to dc to arrange <Nacho Heath - Last Filed: 06/22/18 14:20> Hospitalist Progress Note - Encounter Date of Encounter: 06/22/18 Time of Encounter: 08:35 - Subjective Interval History: PMHx end-stage dementia, hyperlipidemia, hypernatremia, left heel ulcer and recurrent ESBL UTIs presented from [facility] for fever and foul smelling urine for 2 days, acute hypoxia last night. Daughter is critical care nurse. Similar admission March 2018. terminal carman morin cath was administered at last hospitalization and been tolerating well until 2 days ago with foul smell and leak. She went to wound care for heel yesterday for debridement and was relatively at baseline, labs with mild leukocytosis but significant hypernatremia. Her MS declined since debridgement and developed respiratory distress. Family brought her to ED for eval and she was found to be in septic shock, possible aspiration pneumonia. Daughter not a bedside. Subjective limited. Mental status appears baseline. No leak from PEG tube. IVF has been dc. No diarrhea, vomiting, fever per nurse. - Exam Vitals: Temp Pulse Resp BP Pulse Ox 97.9 F 101 16 138/86 100 06/21/18 23:05 06/21/18 23:05 06/21/18 23:05 06/21/18 23:05 06/21/18 23:05 Exam: Gen: Vitals noted. Frail-appearing, does not respond to commands. alert, non- communicative HEENT: Normocephalic, atraumatic Neck: Supple, trachea midline, no lymphadenopathy Cardiovascular: RRR, +S1 & S2, no murmurs, rubs, or gallops Lungs: CTAB, no wheezes, rales, rhonchi Abdomen: soft, nontender, no guarding. PEG tube clean and without leak. No erythema Back: Nontender throughout. Extremities: no BLE edema, nontender calf, no cyanosis or clubbing. Left heel ulcer is wrapped Psych: Does not speak or follow commands - Assessment and Plan (1) Severe sepsis Current Visit: Yes Status: Acute Assessment and Plan: On admission, patient met 4 SIRS criteria + lactic acidosis, AMS - Potential sources: UTI, bacteremia, possible PEG tube infection. - Serology +enterobacter and +proteus - Blood CX 06/16/18 x 2: P. mirabilis - Repeat blood CX drawn 06/17/18 x 1 +GNR - Repeat blood CX drawn 06/20/18 pending x2 Plan: - Continue Rocephin 2g IV q24 (started 06/20; day 3); day 6 total of ABX - Patient will require 14 days of ABX from first negative CX - IVF was d/c yesterday. Pending morning labs. If hyponatremic, we will restart IVF - Plan to transfer to step down pending lab work (2) UTI (urinary tract infection) Current Visit: Yes Status: Acute Assessment and Plan: Acute complicated cystitis - Patient has history of multiple ESBL infections - UA was positive for nitrites and leukocyte esterase - Urine CX sensitive to Rocephin - Continue ABX as above (3) Leaking PEG tube Current Visit: Yes Status: Resolved Assessment and Plan: - Resolved (4) Decubitus ulcer of coccygeal region, stage 2 Current Visit: Yes Status: Acute Assessment and Plan: - No evidence of infection at this time - Continue wound care (5) Unstageable pressure ulcer of left heel Current Visit: No Status: Acute Assessment and Plan: - No evidence of infection at this time - Continue wound care (6) Dementia Current Visit: No Status: Chronic Assessment and Plan: - Poor mentation, unable to provide self care DVT Prophylaxis: Heparin SubQ - Time Spent with Patient Total time spent is greater than 50% in coordination of care (as documented) at patient's floor/unit and/or counseling patient: Greater than 35 minutes Plan of Care Discussed with: patient Internal Medicine: Result - Labs CBC & Chem 7: 06/21/18 04:31 06/21/18 04:31 - ABG Interpretation ABG results: ABG ABG pH 7.42 pH Units (7.32-7.45) 06/17/18 09:58 ABG pCO2 34 mmHg (35-45) L 06/17/18 09:58 ABG pO2 417 mmHg (85-104) H 06/17/18 09:58 ABG O2 Saturation 100 % (95-98) H 06/17/18 09:58 PT/INR, D-dimer PT 16.6 Seconds (9.4-12.1) H 06/17/18 03:16
[2018-06-22] MEDS: *HR* Heparin 5,000 UNIT/ML VIAL SQ SCH ×3 (12:08→21:28)
[2018-06-22] MEDS: Sucralfate 1 GM TABLET PO SCH ×2 (12:08→17:25)
[2018-06-22] MEDS: Sennosides 8.6 MG TABLET PO SCH (12:09)
[2018-06-22] MEDS: Aspirin Enteric Coated 81 MG Tablet PO SCH (12:09)
--- NOTE | 2018-06-22 13:19 | Infectious Disease Progress No ---
Date of Encounter: 06/22/18 Time of Encounter: 09:40 - Assessment and Plan (1) Severe sepsis Current Visit: Yes Status: Acute The patient had four SIRS criteria plus lactic acidosis and AMS. Likely secondary to UTI and bacteremia and possible PEG tube infection. Improved. Afebrile. WBC trending down. Tachypnea has improved. Continues to have tachycardia. Blood cultures drawn 06/16/18 x 2 set is positive for P. mirabilis. Repeat blood culture drawn 06/17/18 x 1 set is positive for P. mirabilis. Repeat blood cultures drawn 06/20/18 are NGTD x 2 sets. Repeat CBC and BMP now. (2) Bacteremia due to Gram-negative bacteria Current Visit: Yes Status: Acute Causative organism: P. mirabilis. Source: likely UTI. Blood cultures drawn 06/16/18 x 2 set is positive for P. mirabilis. Repeat blood culture drawn 06/17/18 x 1 set is positive for P. mirabilis. Repeat blood cultures drawn 06/20/18 are NGTD x 2 sets. Continue Rocephin 2 grams IV daily. Duration of treatment depends on the clinical picture, but likely a total of 14 days from the first set of negative blood cultures. Can likely transition to PO Bactrim when ready for discharge. Plan to treat through 07/03/18. Monitor renal function and dose-adjust antibiotics. (3) UTI (urinary tract infection) Current Visit: Yes Status: Acute Causative organism: P. mirabilis. Likely secondary to chronic indwelling morin catheter. Continue rocephin as stated above. Duration of treatment depends on the clinical picture, but likely 14 days. Can switch to PO Bactrim when ready for discharge. Switch out morin catheter if not already done. Qualifiers: Qualified Code(s): N30.00 - Acute cystitis without hematuria (4) Leaking PEG tube Current Visit: Yes Status: Resolved General surgery consulted. No longer leaking. (5) Decubitus ulcer of coccygeal region, stage 2 Current Visit: Yes Status: Acute Clinically does not appear infected. Wound care to evaluate. Recommend aggressive offloading and Q2H turns. (6) Unstageable pressure ulcer of left heel Current Visit: No Status: Acute Location: left heel. Clinically does not appear infected. Wound care to evaluate. May consider Podiatry to evaluate at some point. (7) Failure to thrive Current Visit: Yes Status: Acute Qualifiers: Qualified Code(s): R62.7 - Adult failure to thrive (8) Advanced dementia Current Visit: Yes Status: Chronic - Subjective Interval history: Patient seen and examined. No acute events noted overnight. No family noted at the bedside. Per nursing, general surgery came and fixed the patient's leaking PEG tube. Wound care has been in to evaluate the patient's decubitus ulcers. Tolerating tube feed well. Patient is awake, but appears agitated and does not follow commands or provide ROS information, but is at baseline per nursing. Infect Dis PN-Objective Data - Labs CBC & Chem 7: 06/23/18 08:39 06/23/18 08:39 Labs: Laboratory Results - last 24 hr 06/21/18 06/21/18 06/21/18 05:39 07:32 11:41 POC Glucose 121 H 123 H 123 H 06/21/18 06/21/18 06/22/18 16:20 19:00 07:52 POC Glucose 117 H 115 H 107 H 06/22/18 11:16 POC Glucose 120 H Cultures: Cultures 06/17/18 00:09 Blood Culture - Final Peripheral Venipuncture Proteus mirabilis 06/16/18 23:55 Blood Culture - Final Peripheral Venipuncture Proteus mirabilis 06/20/18 09:13 Blood Culture - Preliminary Peripheral Venipuncture Culture is incubating and being continuously monitored for growth. Final report to follow. 06/20/18 09:18 Blood Culture - Preliminary Peripheral Venipuncture Culture is incubating and being continuously monitored for growth. Final report to follow. 06/16/18 23:49 Urine Culture - Final Urine,Clean Catch Proteus mirabilis Serology 06/16/18 06/16/18 Range/Units 23:55 23:49 Urine Color Yellow (Yellow) Urine Clarity Clear (Clear) Urine pH >=9.0 H (5.0-8.0) pH Units Ur Specific Ringling 1.010 (1.010-1.025) Urine Protein 100 H (Neg-Trace) mg/dL Urine Glucose (UA) Normal (Normal) mg/dL Urine Ketones Negative (Negative) mg/dL Urine Blood Negative (Negative) Urine Nitrite Positive A (Negative) Urine Bilirubin Negative (Negative) Urine Urobilinogen Normal (Normal) mg/dL Ur Leukocyte Esterase Moderate H (Negative) Urine Microscopic RBC 0-3 (0-3) per hpf Urine Microscopic WBC 3-5 H (0-3) per hpf Ur Squamous Epith Cells Few (None-Few) per lpf Triple Phos Crystals Present Urine Bacteria Many H (None-Few) per hpf Ur Culture Indicated? YES A (NO) A. baumannii (PCR) Not Detected (Not Detect) Cynthia albicans (PCR) Not Detected (Not Detect) C. glabrata (PCR) Not Detected (Not Detect) C. krusei (PCR) Not Detected (Not Detect) C. parapsilosis (PCR) Not Detected (Not Detect) C. tropicalis (PCR) Not Detected (Not Detect) Enterobacteriac sp PCR DETECTED A (Not Detect) E. cloacae complex PCR Not Detected (Not Detect) Enterococcus sp PCR Not Detected (Not Detect) E. coli (PCR) Not Detected (Not Detect) H. influenzae (PCR) Not Detected (Not Detect) Klebsiella oxytoca PCR Not Detected (Not Detect) Klebsiella pneumoniae Not Detected (Not Detect) List. monocytogenes PCR Not Detected (Not Detect) N. meningitidis (PCR) Not Detected (Not Detect) Proteus species (PCR) DETECTED A (Not Detect) Serratia marcescens PCR Not Detected (Not Detect) Staphylococcus sp PCR Not Detected (Not Detect) Staph aureus (PCR) Not Detected (Not Detect) mecA-Methicil Res Gene N/A (Not Detect) Streptococcus sp PCR Not Detected (Not Detect) Group A Strep DNA Not Detected (Not Detect) Group B Strep (PCR) Not Detected (Not Detect) Strep pneumoniae (PCR) Not Detected (Not Detect) P. aeruginosa (PCR) Not Detected (Not Detect) Eri/B-Vanco Res Genes N/A (Not Detect) KPC (blaKPC) Detect PCR Not Detected (Not Detect) Exam - Constitutional Vitals: Temp Pulse Resp BP Pulse Ox 97.9 F 101 16 138/86 100 06/21/18 23:05 06/21/18 23:05 06/21/18 23:05 06/21/18 23:05 06/21/18 23:05 General appearance: no acute distress, thin, no cooperative - Head Head exam: Present: atraumatic, normal inspection, normocephalic - Eye Eye exam: Present: EOMI, normal appearance, PERRL Pupils: Present: normal accommodation - ENT ENT exam: Present: mucous membranes moist - Neck Neck exam: Present: normal inspection - Respiratory Respiratory exam: Present: CTAB. Absent: rales, respiratory distress, rhonchi, wheezes - Cardiovascular Cardiovascular exam: Present: tachycardia. Absent: irregular rhythm - GI/Abdominal GI/Abdominal exam: Present: normal bowel sounds, soft. Absent: distended, tenderness Additional comments: PEG tube noted with tube feeds infusing. Morin catheter noted to be draining clear yellow urine. - Extremities Exam Extremities exam: Absent: joint swelling, normal inspection (Dressing noted to the left foot C/D/I.), pedal edema, tenderness - Neurological Exam Neurological exam: Present: alert, altered (Eyes open, follows some commands, does not verbalize.) - Skin Skin exam: Present: dry, intact, normal color, warm Consult Discharge Plan - Plan Additional Instructions: Patient to be discharged back to [facility] Referrals: Wade Metcalf MD [Primary Care Provider] - (This patient is from [facility] no PCP appointment needed) - Attending Attestation I examined this patient and my medical decision-making was reviewed with the Resident Physician. I agree with the documented findings, disposition and treatment plan as described except to the extent set forth below.
[2018-06-22] MEDS ORDERED: Aspirin Enteric Coated 81 MG Tablet PO ONE (13:26)
[2018-06-22] MEDS ORDERED: Sucralfate 1 GM TABLET PO ONE (13:26)
[2018-06-22] MEDS ORDERED: *HR* Heparin 5,000 UNIT/ML VIAL IVP ONE (13:26)
[2018-06-22] MEDS ORDERED: Sennosides 8.6 MG TABLET PO ONE (13:26)
[2018-06-22] MEDS: cefTRIAXone 2,000 MG in Water for inj. (sterile) 20 ML 20 ML IVP SCH (14:00)
[2018-06-22 14:20] LABS: Hemoglobin 10.5 g/dL (11.5-15.4); Nucleated Red Blood Cells 0.2 /100 WBC (0)
[2018-06-22 14:22] LABS: Immature Platelets 6.5 % (1.1-6.1); Mean Corpuscular HGB Conc 30.9 g/dL (31.6-35.5); Mean Corpuscular Hemoglobin 20.2 pg (28.0-33.3); Mean Corpuscular Volume 65.3 fL (83.0-100.0); Mean Platelet Volume 10.7 fL (9.4-12.4); Platelet Count 347 K/mcL (140-400); Red Blood Count 5.21 M/mcL (3.82-4.97); Red Cell Distribution Width 17.3 % (11.5-14.5)
[2018-06-22 14:56] LABS: Microcytosis Present (Not Present); Platelet Estimate Normal (Normal); Polychromasia 1+ (Not Present)
[2018-06-22 14:59] LABS: BUN/Creatinine Ratio 28 (6-26); Blood Urea Nitrogen 12 mg/dL (8-23); Calcium 9.5 mg/dL (8.6-10.3); Carbon Dioxide 30 mEq/L (23-29); Chloride 104 mEq/L (98-107); Glucose 106 mg/dL (70-105); Osmolality,Calculated 290 (280-300); Potassium 4.3 mEq/L (3.5-5.1); Sodium 140 mEq/L (136-145); eGFR For Non-African Americans > 60 (> 60)
[2018-06-22 15:38] LABS: Lymphocytes # 0.6 K/mcL (0.6-4.6); Neutrophils # 12.1 K/mcL (1.6-8.9)
[2018-06-22] MEDS: D5% in 0.45% NACL 1,000 ML IVC SCH ×2 (19:10→21:27)
[2018-06-23] MEDS: *HR* Heparin 5,000 UNIT/ML VIAL SQ SCH (07:40)
[2018-06-23] MEDS: Sucralfate 1 GM TABLET PO SCH (07:45)
[2018-06-23] MEDS: Sennosides 8.6 MG TABLET PO SCH (07:45)
[2018-06-23] MEDS: Aspirin Enteric Coated 81 MG Tablet PO SCH (07:46)
--- NOTE | 2018-06-23 08:41 | Discharge Summary ---
<Nacho Heath - Last Filed: 06/23/18 12:55> - NOTES TO OUTPATIENT PROVIDER Notes to Outpatient Provider: Patient to continue Bactrim via PEG tube until 07/03/18. Blood culture drawn on 06/20/18 without growth. Pending final reading. Orders not resulted at time of discharge: Pending orders 06/20/18 09:13 Culture,Blood [BC] Stat 06/23/18 08:07 BMP [Basic Metabolic Panel] Stat Complete Blood Count [HEME] Stat Date of Encounter: 06/23/18 Time of Encounter: 08:20 - Discharge Diagnosis (1) Severe sepsis Priority: Primary Status: Acute (2) Dementia Priority: Secondary Status: Chronic Qualifiers: Dementia type: unspecified type Dementia behavioral disturbance: without behavioral disturbance Qualified Code(s): F03.90 - Unspecified dementia without behavioral disturbance (3) Dehydration Priority: Secondary Status: Acute (4) Altered mental status Priority: Secondary Status: Acute Qualifiers: Altered mental status type: coma Coma depth: [place] coma 9-12 (5) Counseling regarding advanced care planning and goals of care Priority: Secondary Status: Acute (6) UTI (urinary tract infection) Priority: Secondary Status: Acute Qualifiers: Urinary tract infection type: acute cystitis Hematuria presence: without hematuria Qualified Code(s): N30.00 - Acute cystitis without hematuria (7) Acute respiratory failure Priority: Secondary Status: Acute Qualifiers: Respiratory failure complication: hypoxia Qualified Code(s): J96.01 - Acute respiratory failure with hypoxia (8) Protein-calorie malnutrition, severe Priority: Secondary Status: Chronic (9) JEANNIE (acute kidney injury) Priority: Secondary Status: Acute (10) Decubitus ulcer of coccygeal region, stage 2 Priority: Secondary Status: Acute (11) Leaking PEG tube Priority: Secondary Status: Resolved Hospital course: Ms. Mccain is a 88 year old female DNR-CC, PMHx end-stage dementia, hyperlipidemia, hypernatremia, left heel ulcer and recurrent ESBL UTIs who presented to ED from [facility] halfway with complaints of fever and foul smelling urine for 2 days. Patient was recently admitted to [place] for similar symptoms including low oxygen saturation and UTI with ESBL E. coli bacteremia on March 2018 and completed course of antibiotics. She required insertion of long- term follow approximate 1 month ago. About 2 days ago, daughter notied urine from morin to be malodorous and leaking. Patient also had decreased mental status for 1 day with worsening respiratory distress. Family became concerned and bought her to the emergency room. At ED, leukocytosis 34.5 with 14% bands and febrile 103.6, heart rate 132, respiratory rate 30, BP 103/73. She was also found to be in JEANNIE with creatinine 1.34 lactate 9.3. UA demonstrated large leukocyte esterase and nitrite. She immediately received 2.5 L normal saline, vancomycin, Zosyn, and Levaquin, as well as Solu-medrol. Patient was admitted for severe sepsis 2/[address] abdomen was obtained without evidence of pyelonephritis. Lactic acid improved with 2.5 L of fluids and antibiotics (Vancomycin, Zosyn, levaquin, and meropenem due to history of ESBL bacteremia). Initial blood cultures on 06/16/18 came back positive for Proteus mirabilis, vancomycin, zosyn, and levaquin were discontinued after one dose. Merrem was continued from 06/17/18 - 06/19/18 until sensitivities to Rocephin were obtained. Vancomycine was down-escalated to Rocephin (day #3). Repeat blood cultures from 06/20/18 without growth so far. Per infectious diseases, patient can be discharged with Bactrim through PEG tube until 07/03/18. On 06/17/18, patient's PEG was found to be leaking and surgery was consulted. Surgery has re-examined PEG tube on 06/20/18 and repaired tube placement. PEG tube has been functional without leaks since then. Leukocytosis has been downtrending, currently 13.2. Patient has been afebrile since admission and her heart rate is back to baseline (~100s). Her mental status has progressive improved back to baline for the last 3 days. This was confirmed by daughter on 06/20/18. Decubitus ulcer of coccygeal region and left heel pressure ulcer have no evidence of infection. Patient is medically cleared to return to [facility] halfway with Bactrim via PEG tube until 07/03/18. She is to continue her home medications. 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 Attempted to call Daughter Siria at [phone] without success. RN has also attempted. Transfer planning for today. Please call for any questions Nacho Heath School Bus Inspector PGY2 Discharge discussed with: patient, family - Time Spent with Patient Total time spent providing and/or coordinating discharge services: Greater than 30 minutes - Discharge Medications Prescriptions: Sulfamethoxazole/Trimeth Oral [Bactrim Susp 400-80mg/10mL] 20 ml PO BID #1 oral.susp Home Medications: Acetaminophen [Tylenol 650mg SUPP] 650 mg RC Q6H PRN 03/03/18 [History] Albuterol Neb [Proventil Neb] 2.5 mg IH Q2H PRN 03/03/18 [History] Aspirin Enteric Coated [Aspirin EC] 81 mg PO DAILY 03/03/18 [History] Atropine 1% Opth Drops 1 drop SL Q4H PRN 03/03/18 [History] Donepezil HCl [Aricept] 10 mg PO DAILY 03/03/18 [History] Ferrous Sulfate [Iron] 325 mg PO DAILY 03/03/18 [History] Loratadine [Allergy Relief] 10 mg PO DAILY PRN 03/03/18 [History] MORPHINE SUL Oral CONC [Roxanol Oral Conc] 0.25 ml SL Q4H PRN 03/03/18 [History] Sennosides [Senna] 8.6 mg PO DAILY 03/03/18 [History] Sucralfate [Carafate] 1 gm PO BID 03/03/18 [History] amLODIPine [Norvasc] 5 mg PO DAILY tablet 03/09/18 [Rx] Sulfamethoxazole/Trimeth Oral [Bactrim Susp 400-80mg/10mL] 20 ml PO BID #1 oral.susp 06/23/18 [Rx] Allergies/Adverse Reactions: Allergy/AdvReac Type Severity Reaction Status Date / Time No Known Allergies Allergy Verified 06/19/18 10:46 Date of admission: 06/17/18 01:40 Primary care physician: Wade Metcalf MD Consults: 06/17/18 03:41 Consult to Infectious Diseases [CONS] Routine Consulting Provider: Infectious Disease [facility] Reason for Consult: ESBL UTI, Sepsis Call Completed: No Consult to Nutrition [CONS] Routine Comment: Consulting Provider: NUTRITION Reason for Dietary Consult: Tube Feed Start & Manage 06/17/18 08:48 Consult to Palliative Care [CONS] Routine Comment: Consulting Provider: Palliative Care [facility] Reason for Consult: goals of care-senior care/ hospice Call Completed: No 06/18/18 14:12 Consult to Surgery [CONS] Routine Consulting Provider: Nacho Heath Reason for Consult: PEG tube leak Call Completed: Yes 06/20/18 10:53 Consult to Wound Care [CONS] Routine Reason for Consult: left heel pressure ulcer and Coccyx pressure ulcer Time Notified: 10:55 Call Completed: Yes Discharging clinician: Nacho Heath Anticipated date of discharge: 06/23/18 - Constitutional Vitals: Temp Pulse Resp BP Pulse Ox 98.1 F 102 20 123/67 100 06/23/18 07:26 06/23/18 07:26 06/23/18 07:26 06/23/18 07:26 06/23/18 07:26 Exam: Gen: Vitals noted. Frail-appearing, does not respond to commands. alert, non- communicative HEENT: Normocephalic, atraumatic Neck: Supple, trachea midline, no lymphadenopathy Cardiovascular: RRR, +S1 & S2, no murmurs, rubs, or gallops Lungs: CTAB, no wheezes, rales, rhonchi Abdomen: soft, nontender, no guarding. PEG tube clean and without leak. No erythema Back: Nontender throughout. Extremities: no BLE edema, nontender calf, no cyanosis or clubbing. Left heel ulcer is wrapped Psych: Does not speak or follow commands - Patient Status Disposition: Transfer SNF Condition: Fair Functional capacity at discharge: bed bound Overall status at discharge: patient is back to baseline - Discharge Instructions Instructions: Sepsis (DC) Follow Up With: Wade Metcalf MD [Primary Care Provider] - (This patient is from [facility] no PCP appointment needed) Additional Instructions: Patient to be discharged back to [facility] - Diet and Activity Activity: resume usual activities as tolerated Diet: advance to your usual diet <Citlali Borjas - Last Filed: 06/23/18 16:08> Orders not resulted at time of discharge: Pending orders 06/20/18 09:13 Culture,Blood [BC] Stat - Discharge Diagnosis (1) Hypernatremia Status: Acute (2) Dementia Status: Chronic Qualifiers: Dementia type: unspecified type Dementia behavioral disturbance: without behavioral disturbance Qualified Code(s): F03.90 - Unspecified dementia wi thout behavioral disturbance (3) DVT prophylaxis Status: Acute (4) Counseling regarding advanced care planning and goals of care Status: Acute (5) UTI (urinary tract infection) Status: Acute Qualifiers: Urinary tract infection type: acute cystitis Hematuria presence: without hematuria Qualified Code(s): N30.00 - Acute cystitis without hematuria (6) Elevated troponin Status: Acute (7) Acute respiratory failure Status: Acute Qualifiers: Respiratory failure complication: hypoxia Qualified Code(s): J96.01 - Acute respiratory failure with hypoxia (8) JEANNIE (acute kidney injury) Status: Acute (9) Septic shock Status: Acute Hospital course: Ms. Mccain is a 88 year old female - Time Spent with Patient Total time spent providing and/or coordinating discharge services: Less than 30 minutes Date of admission: 06/17/18 01:40 Primary care physician: Wade Metcalf MD Consults: 06/17/18 03:41 Consult to Infectious Diseases [CONS] Routine Consulting Provider: Infectious Disease [place] Reason for Consult: ESBL UTI, Sepsis Call Completed: No Consult to Nutrition [CONS] Routine Comment: Consulting Provider: NUTRITION Reason for Dietary Consult: Tube Feed Start & Manage 06/17/18 08:48 Consult to Palliative Care [CONS] Routine Comment: Consulting Provider: Palliative Care [place] Reason for Consult: goals of care-oysterman/ hospice Call Completed: No 06/18/18 14:12 Consult to Surgery [CONS] Routine Consulting Provider: Nacho Heath Reason for Consult: PEG tube leak Call Completed: Yes 06/20/18 10:53 Consult to Wound Care [CONS] Routine Reason for Consult: left heel pressure ulcer and Coccyx pressure ulcer Time Notified: 10:55 Call Completed: Yes - Constitutional Vitals: Temp Pulse Resp BP Pulse Ox 98.1 F 102 20 123/67 100 06/23/18 07:26 06/23/18 07:26 06/23/18 07:26 06/23/18 07:26 06/23/18 07:26 - Attending Attestation I examined this patient and my medical decision-making was reviewed with the Resident Physician Dr Heath. I agree with the documented findings, disposition and treatment plan as described except to the extent set forth below/addl details below Ms Kalyn was admitted with altered mental status and severe sepsis. She has a hx os ESBL UTIs and + bacteremia here. ID has been following, most recent bl cxs remain +, suspected source is UTI. Awaiting negative cxs to determine abx length then will return to [facility]. Awake, alert, non verbal. ros and hpi limited by dementia, no family present, appears comfortable gen- alert, awake,appears stated age cv- reg rate and rhythm, normal s1,s2, no murmurs appreciated, no le edema lungs- ctabl, no wheezing, rhonchi or crackles, normal resp effort on ra abd- soft, not apparently tender, no guarding or grimace,non distended, +bs gu- morin cath with clear yellow urine neuro Alert, eyes open, pupils equal round and eom appear intact, does not follow commands, no focal deficits can be appreciated with spontaneous movement of upper ext noted Severe Sepsis likely 2/2 UTI with gnr bacteremia,resolved treatment as below -wound care followed for stage II sacral decub that does not appear to be infected -leakage around peg site, surgery adjusted peg, the peg site does appear infected infection Proteus Mirabilis UTI, with Chronic Morin catheter, clinically unable to determine if related to each other -ID followed for ESBL hx, de escalated abx from redd to rocephin 06/20 given ucx sensitivities, morin exchanged this admit GNR bacteremia, suspect source 06/16 bl cxs + proteus 06/17 bl cxs + proteus 06/20 bl cx ngtd -will dc on liquid bactrim as recommended by ID for 14 day course from 06/20 neg bl cxs (tx completee 07/03/18) Advanced Dementia- re orient as needed, cont home meds HTN hx, bps variable - she may resume home norvasc on dc and fu with outpt provider for further management dispo- dc to [facility] today total time spent with discharge less than 30 m inutes
[2018-06-23 08:58] LABS: Basophils # 0.1 K/mcL (0.0-0.2); Basophils % 0.4 %; Eosinophils # 0.6 K/mcL (0.0-0.6); Eosinophils % 4.4 %; Hematocrit 35.2 % (35.3-44.9); Immature Granulocytes % 2.5 % (0-4); Lymphocytes # 1.5 K/mcL (0.6-4.6); Lymphocytes % 11.6 %; Mean Corpuscular HGB Conc 31.3 g/dL (31.6-35.5); Mean Corpuscular Hemoglobin 20.4 pg (28.0-33.3); Mean Corpuscular Volume 65.4 fL (83.0-100.0); Mean Platelet Volume 10.3 fL (9.4-12.4); Monocytes % 7.8 %; Neutrophils # 9.7 K/mcL (1.6-8.9); Platelet Count 431 K/mcL (140-400); Red Blood Count 5.38 M/mcL (3.82-4.97); Red Cell Distribution Width 17.7 % (11.5-14.5); Segmented Neutrophils % 73.3 %
[2018-06-23 09:11] LABS: BUN/Creatinine Ratio 30 (6-26); Blood Urea Nitrogen 14 mg/dL (8-23); Calcium 9.6 mg/dL (8.6-10.3); Carbon Dioxide 28 mEq/L (23-29); Chloride 101 mEq/L (98-107); Glucose 108 mg/dL (70-105); Osmolality,Calculated 287 (280-300); Potassium 4.3 mEq/L (3.5-5.1); Sodium 138 mEq/L (136-145); eGFR For Non-African Americans > 60 (> 60)
--- NOTE | 2018-06-23 09:18 | Infectious Disease Progress No ---
Date of Encounter: 06/23/18 Time of Encounter: 08:45 - Assessment and Plan (1) Severe sepsis Current Visit: Yes Status: Acute The patient had four SIRS criteria plus lactic acidosis and AMS. Likely secondary to UTI and bacteremia and possible PEG tube infection. Improved. Afebrile. WBC trending down. Tachypnea has improved. Continues to have tachycardia. Blood cultures drawn 06/16/18 x 2 set is positive for P. mirabilis. Repeat blood culture drawn 06/17/18 x 1 set is positive for P. mirabilis. Repeat blood cultures drawn 06/20/18 are NGTD x 2 sets. (2) Bacteremia due to Gram-negative bacteria Current Visit: Yes Status: Acute Causative organism: P. mirabilis. Source: likely UTI. Blood cultures drawn 06/16/18 x 2 set is positive for P. mirabilis. Repeat blood culture drawn 06/17/18 x 1 set is positive for P. mirabilis. Repeat blood cultures drawn 06/20/18 are NGTD x 2 sets. Continue Rocephin 2 grams IV daily. Duration of treatment depends on the clinical picture, but likely a total of 14 days from the first set of negative blood cultures. Can likely transition to PEG tube Bactrim when ready for discharge. Plan to treat through 07/03/18. Monitor renal function and dose-adjust antibiotics. (3) UTI (urinary tract infection) Current Visit: Yes Status: Acute Causative organism: P. mirabilis. Likely secondary to chronic indwelling morin catheter. Continue rocephin as stated above. Duration of treatment depends on the clinical picture, but likely 14 days. Can switch to PEG Bactrim when ready for discharge. Morin catheter exchanged on this admission. Qualifiers: Qualified Code(s): N30.00 - Acute cystitis without hematuria (4) Leaking PEG tube Current Visit: Yes Status: Resolved General surgery consulted. No longer leaking. (5) Decubitus ulcer of coccygeal region, stage 2 Current Visit: Yes Status: Acute Clinically does not appear infected. Wound care to evaluate. Recommend aggressive offloading and Q2H turns. (6) Unstageable pressure ulcer of left heel Current Visit: No Status: Acute Location: left heel. Clinically does not appear infected. Wound care to evaluate. May consider Podiatry to evaluate at some point. (7) Failure to thrive Current Visit: Yes Status: Acute Qualifiers: Qualified Code(s): R62.7 - Adult failure to thrive (8) Advanced dementia Current Visit: Yes Status: Chronic - Subjective Interval history: Patient seen and examined. No acute events noted overnight. No family noted at the bedside. No new issues per nursing. Tolerating tube feed well. Patient is awake, but appears agitated and does not follow commands or provide ROS information, but is at baseline per nursing. Infect Dis PN-Objective Data - Labs CBC & Chem 7: 06/23/18 08:39 06/23/18 08:39 Labs: Laboratory Results - last 24 hr 06/21/18 06/21/18 06/21/18 05:39 07:32 11:41 WBC RBC Hgb Hct MCV MCH MCHC RDW Plt Count MPV Immature Gran % Seg Neutrophils % Band Neutrophils % Lymphocytes % Monocytes % Eosinophils % Basophils % Neutrophils # Lymphocytes # Monocytes # Eosinophils # Basophils # Nucleated RBCs/100 WBC Platelet Estimate Immature Plt Fraction Polychromasia Microcytosis Sodium Potassium Chloride Carbon Dioxide BUN Creatinine Est GFR ( Amer) Est GFR (Non-Af Amer) BUN/Creatinine Ratio Glucose POC Glucose 121 H 123 H 123 H Calculated Osmolality Calcium 06/21/18 06/21/18 06/22/18 16:20 19:00 07:52 WBC RBC Hgb Hct MCV MCH MCHC RDW Plt Count MPV Immature Gran % Seg Neutrophils % Band Neutrophils % Lymphocytes % Monocytes % Eosinophils % Basophils % Neutrophils # Lymphocytes # Monocytes # Eosinophils # Basophils # Nucleated RBCs/100 WBC Platelet Estimate Immature Plt Fraction Polychromasia Microcytosis Sodium Potassium Chloride Carbon Dioxide BUN Creatinine Est GFR ( Amer) Est GFR (Non-Af Amer) BUN/Creatinine Ratio Glucose POC Glucose 117 H 115 H 107 H Calculated Osmolality Calcium 06/22/18 06/22/18 06/22/18 11:16 13:45 13:45 WBC 14.7 H RBC 5.21 H Hgb 10.5 L Hct 34.0 L MCV 65.3 L MCH 20.2 L MCHC 30.9 L RDW 17.3 H Plt Count 347 D MPV 10.7 Immature Gran % Test Not Performed Seg Neutrophils % 80.0 Band Neutrophils % 2.0 Lymphocytes % 4.0 Monocytes % Test Not Performed Eosinophils % Test Not Performed Basophils % Test Not Performed Neutrophils # 12.1 H Lymphocytes # 0.6 Monocytes # EMERGENCY DETAIL DRIVER Eosinophils # EMERGENCY DETAIL DRIVER Basophils # EMERGENCY DETAIL DRIVER Nucleated RBCs/100 WBC 0.2 H Platelet Estimate Normal Immature Plt Fraction 6.5 H Polychromasia 1+ A Microcytosis Present A Sodium 140 Potassium 4.3 Chloride 104 Carbon Dioxide 30 H BUN 12 Creatinine 0.43 L Est GFR ( Amer) > 60 Est GFR (Non-Af Amer) > 60 BUN/Creatinine Ratio 28 H Glucose 106 H POC Glucose 120 H Calculated Osmolality 290 Calcium 9.5 06/22/18 06/22/18 06/23/18 15:46 19:52 07:47 WBC RBC Hgb Hct MCV MCH MCHC RDW Plt Count MPV Immature Gran % Seg Neutrophils % Band Neutrophils % Lymphocytes % Monocytes % Eosinophils % Basophils % Neutrophils # Lymphocytes # Monocytes # Eosinophils # Basophils # Nucleated RBCs/100 WBC Platelet Estimate Immature Plt Fraction Polychromasia Microcytosis Sodium Potassium Chloride Carbon Dioxide BUN Creatinine Est GFR ( Amer) Est GFR (Non-Af Amer) BUN/Creatinine Ratio Glucose POC Glucose 120 H 131 H 122 H Calculated Osmolality Calcium 06/23/18 06/23/18 08:39 08:39 WBC 13.2 H RBC 5.38 H Hgb 11.0 L Hct 35.2 L MCV 65.4 L MCH 20.4 L MCHC 31.3 L RDW 17.7 H Plt Count 431 H MPV 10.3 Immature Gran % 2.5 Seg Neutrophils % 73.3 Band Neutrophils % Lymphocytes % 11.6 Monocytes % 7.8 Eosinophils % 4.4 Basophils % 0.4 Neutrophils # 9.7 H Lymphocytes # 1.5 Monocytes # 1.0 Eosinophils # 0.6 Basophils # 0.1 Nucleated RBCs/100 WBC Platelet Estimate Immature Plt Fraction Polychromasia Microcytosis Sodium 138 Potassium 4.3 Chloride 101 Carbon Dioxide 28 BUN 14 Creatinine 0.47 L Est GFR ( Amer) > 60 Est GFR (Non-Af Amer) > 60 BUN/Creatinine Ratio 30 H Glucose 108 H POC Glucose Calculated Osmolality 287 Calcium 9.6 Cultures: Cultures 06/17/18 00:09 Blood Culture - Final Peripheral Venipuncture Proteus mirabilis 06/16/18 23:55 Blood Culture - Final Peripheral Venipuncture Proteus mirabilis 06/20/18 09:13 Blood Culture - Preliminary Peripheral Venipuncture Culture is incubating and being continuously monitored for growth. Final report to follow. 06/20/18 09:18 Blood Culture - Preliminary Peripheral Venipuncture Culture is incubating and being continuously monitored for growth. Final report to follow. 06/16/18 23:49 Urine Culture - Final Urine,Clean Catch Proteus mirabilis Serology 06/16/18 06/16/18 Range/Units 23:55 23:49 Urine Color Yellow (Yellow) Urine Clarity Clear (Clear) Urine pH >=9.0 H (5.0-8.0) pH Units Ur Specific [place] 1.010 (1.010-1.025) Urine Protein 100 H (Neg-Trace) mg/dL Urine Glucose (UA) Normal (Normal) mg/dL Urine Ketones Negative (Negative) mg/dL Urine Blood Negative (Negative) Urine Nitrite Positive A (Negative) Urine Bilirubin Negative (Negative) Urine Urobilinogen Normal (Normal) mg/dL Ur Leukocyte Esterase Moderate H (Negative) Urine Microscopic RBC 0-3 (0-3) per hpf Urine Microscopic WBC 3-5 H (0-3) per hpf Ur Squamous Epith Cells Few (None-Few) per lpf Triple Phos Crystals Present Urine Bacteria Many H (None-Few) per hpf Ur Culture Indicated? YES A (NO) A. baumannii (PCR) Not Detected (Not Detect) Cynthia albicans (PCR) Not Detected (Not Detect) C. glabrata (PCR) Not Detected (Not Detect) C. krusei (PCR) Not Detected (Not Detect) C. parapsilosis (PCR) Not Detected (Not Detect) C. tropicalis (PCR) Not Detected (Not Detect) Enterobacteriac sp PCR DETECTED A (Not Detect) E. cloacae complex PCR Not Detected (Not Detect) Enterococcus sp PCR Not Detected (Not Detect) E. coli (PCR) Not Detected (Not Detect) H. influenzae (PCR) Not Detected (Not Detect) Klebsiella oxytoca PCR Not Detected (Not Detect) Klebsiella pneumoniae Not Detected (Not Detect) List. monocytogenes PCR Not Detected (Not Detect) N. meningitidis (PCR) Not Detected (Not Detect) Proteus species (PCR) DETECTED A (Not Detect) Serratia marcescens PCR Not Detected (Not Detect) Staphylococcus sp PCR Not Detected (Not Detect) Staph aureus (PCR) Not Detected (Not Detect) mecA-Methicil Res Gene N/A (Not Detect) Streptococcus sp PCR Not Detected (Not Detect) Group A Strep DNA Not Detected (Not Detect) Group B Strep (PCR) Not Detected (Not Detect) Strep pneumoniae (PCR) Not Detected (Not Detect) P. aeruginosa (PCR) Not Detected (Not Detect) Eri/B-Vanco Res Genes N/A (Not Detect) KPC (blaKPC) Detect PCR Not Detected (Not Detect) Exam - Constitutional Vitals: Temp Pulse Resp BP Pulse Ox 98.1 F 102 20 123/67 100 06/23/18 07:26 06/23/18 07:26 06/23/18 07:26 06/23/18 07:26 06/23/18 07:26 General appearance: no acute distress, thin, no cooperative - Head Head exam: Present: atraumatic, normal inspection, normocephalic - Eye Eye exam: Present: EOMI, normal appearance, PERRL Pupils: Present: normal accommodation - ENT ENT exam: Present: mucous membranes dry - Neck Neck exam: Present: normal inspection - Respiratory Respiratory exam: Present: CTAB. Absent: rales, respiratory distress, rhonchi, wheezes - Cardiovascular Cardiovascular exam: Present: +S1, +S2, tachycardia. Absent: irregular rhythm - GI/Abdominal GI/Abdominal exam: Present: normal bowel sounds, soft. Absent: distended, tenderness Additional comments: PEG Tube noted with tube feeds infusing. Morin catheter noted to be draining clear yellow urine. - Extremities Exam Extremities exam: Absent: joint swelling, normal inspection (Left foot dressing with scant old bloody drainage noted.), pedal edema, tenderness - Neurological Exam Neurological exam: Present: alert, no focal deficits. Absent: oriented X3 (Does not follow commands or verbalize.) - Skin Skin exam: Present: dry, intact, normal color, warm Consult Discharge Plan - Plan Instructions: Sepsis (DC) Additional Instructions: Patient to be discharged back to [facility] Referrals: Wade Metcalf MD [Primary Care Provider] - (This patient is from [facility] no PCP appointment needed) Prescriptions: Sulfamethoxazole/Trimeth Oral [Bactrim Susp 400-80mg/10mL] 20 ml PO BID #1 oral.susp - Attending Attestation I examined this patient and my medical decision-making was reviewed with the Resident Physician. I agree with the documented findings, disposition and treatment plan as described except to the extent set forth below.
--- NOTE | 2018-06-23 10:47 | Physician Discharge Referral ---
<Nacho Heath - Last Filed: 06/23/18 10:45> [facility] Referral Info Transfer To: [facility] Institutional Level of Care: Skilled - Diagnosis (1) Severe sepsis Priority: Primary Status: Acute (2) Dementia Priority: Secondary Status: Chronic (3) Dehydration Priority: Secondary Status: Acute (4) Altered mental status Priority: Secondary Status: Acute (5) Counseling regarding advanced care planning and goals of care Priority: Secondary Status: Acute (6) UTI (urinary tract infection) Priority: Primary Status: Acute (7) Acute respiratory failure Priority: Secondary Status: Acute (8) Protein-calorie malnutrition, severe Priority: Secondary Status: Chronic (9) JEANNIE (acute kidney injury) Priority: Secondary Status: Acute (10) Decubitus ulcer of coccygeal region, stage 2 Priority: Secondary Status: Acute (11) Leaking PEG tube Priority: Secondary Status: Resolved Prognosis: Good Aware of Diagnosis: Patient Aware of Prognosis: Patient - Transfer Medications Prescriptions: Sulfamethoxazole/Trimeth Oral [Bactrim Susp 400-80mg/10mL] 20 ml PO BID #1 oral.susp Home Medications: Acetaminophen [Tylenol 650mg SUPP] 650 mg RC Q6H PRN 03/03/18 [History] Albuterol Neb [Proventil Neb] 2.5 mg IH Q2H PRN 03/03/18 [History] Aspirin Enteric Coated [Aspirin EC] 81 mg PO DAILY 03/03/18 [History] Atropine 1% Opth Drops 1 drop SL Q4H PRN 03/03/18 [History] Donepezil HCl [Aricept] 10 mg PO DAILY 03/03/18 [History] Ferrous Sulfate [Iron] 325 mg PO DAILY 03/03/18 [History] Loratadine [Allergy Relief] 10 mg PO DAILY PRN 03/03/18 [History] MORPHINE SUL Oral CONC [Roxanol Oral Conc] 0.25 ml SL Q4H PRN 03/03/18 [History] Sennosides [Senna] 8.6 mg PO DAILY 03/03/18 [History] Sucralfate [Carafate] 1 gm PO BID 03/03/18 [History] amLODIPine [Norvasc] 5 mg PO DAILY tablet 03/09/18 [Rx] Sulfamethoxazole/Trimeth Oral [Bactrim Susp 400-80mg/10mL] 20 ml PO BID #1 oral.susp 06/23/18 [Rx] Allergies/Adverse Reactions: Allergy/AdvReac Type Severity Reaction Status Date / Time No Known Allergies Allergy Verified 06/19/18 10:46 - Respiratory Orders Smoking Cessation: Smoking cessation has been advised. For more information, call the [employer] Quit Line at [phone]-NLN. CERTIFICATION: I certify that the transfer of the above named patient to an Extended Care Facility is necessary for the continuing treatment of the diagnosis listed. The above information is true and accurate reflection of patient's current condition. Confidential - Redisclosure prohibited without a patient's written consent. <Citlali Borjas M - Last Filed: 06/24/18 07:21> [facility] Charge after [facility]: PCP - Diagnosis (1) Hypernatremia Status: Acute (2) Dementia Status: Chronic (3) DVT prophylaxis Status: Acute (4) Counseling regarding advanced care planning and goals of care Status: Acute (5) UTI (urinary tract infection) Status: Acute (6) Elevated troponin Status: Acute (7) Acute respiratory failure Status: Acute (8) JEANNIE (acute kidney injury) Status: Acute (9) Septic shock Status: Acute - Respiratory Orders Smoking Cessation: Smoking cessation has been advised. For more information, call the [employer] Quit Line at [phone]-PLB. CERTIFICATION: I certify that the transfer of the above named patient to an Extended Care Facility is necessary for the continuing treatment of the diagnosis listed. The above information is true and accurate reflection of patient's current condition. Confidential - Redisclosure prohibited without a patient's written consent.
[2018-06-23 11:39] VITALS: BP 160/101
== END 2018-06-23 13:27 | DRG 466 ==
LOC: EMEROOARM 23:24 → SUATTDRO 06-17 01:40 → 2NNU 06-17 01:40
PROVIDERS: ADMIT Internal Medicine; ATTEND Internal Medicine